=== PATIENT | female | born 1960 | race Hispanic/Latino ===

== ENCOUNTER 2017-06-20 19:06 | Inpatient (IN) | payer OTHER ==
[2017-06-20 19:19] VITALS: BMI 17.2
[2017-06-20] MEDS ORDERED: Heparin25000 units/250ml 1/2NS 25,000 UNITS/250 ML BAG IV ONE (19:38)
[2017-06-20] MEDS ORDERED: Midazolam 2 MG/2 ML VIAL ONE (19:53)
[2017-06-20] MEDS ORDERED: SODIUM CHLORIDE 0.9% IV ONE (20:00)
[2017-06-20] MEDS ORDERED: ALTEPLASE IV ONE (20:00)
[2017-06-20] MEDS ORDERED: Iodixanol 320 MG/ML 100 ML BOTTLE IV ONE (20:23)
[2017-06-20] MEDS ORDERED: Heparin25000 units/250ml 1/2NS 25,000 UNITS/250 ML BAG IV PRN (21:39)
--- NOTE | 2017-06-20 23:08 | CP.PCM.CON ---
History of Present Illness - History of Present Illness History of Present Illness: 57 y/o female with rheumatoid arthritis,bedbound,sacral decubitus admitted to [facility] with Pulmonary embolism .Patient with persistant hypoxia,tacycardia, hypotension,with Pulmary HTN and RV dilatation on ECHO ,transferred today to for thrombolysis.Patient feels better after procedure.Denies chest pain or difficulty breathing Review of Systems - Constitutional Constitutional: absent: Anorexia, Fever - EENT Eyes: Dry Eye. absent: Blurred Vision Ears: absent: Decreased Hearing, Ear Pain Nose/Mouth/Throat: absent: Nasal Congestion, Sore Throat, Neck Mass - Cardiovascular Cardiovascular: Pedal Edema. absent: Chest Pain, Rapid Heart Rate - Respiratory Respiratory: absent: Cough, Dyspnea - Gastrointestinal Gastrointestinal: absent: Abdominal Pain, Nausea, Vomiting - Genitourinary Genitourinary: absent: Dysuria, Urinary Frequency - Musculoskeletal Musculoskeletal: Deformity, Stiffness - Neurological Neurological: absent: Headaches, Vertigo - Hematologic/Lymphatic Hematologic: absent: Easy Bleeding, Easy Bruising Past Patient History - Past Medical History & Family History Past Medical History?: Yes - Past Social History Smoking Status: Never Smoked - CARDIAC Hx Cardiac Disorders: Yes Hx Congestive Heart Failure: No Hx Hypercholesterolemia: No Hx Hypertension: Yes Other/Comment: stents - PULMONARY Hx Respiratory Disorders: Yes Hx Chronic Obstructive Pulmonary Disease (COPD): No - NEUROLOGICAL Hx Neurological Disorder: No HX Cerebrovascular Accident: No - HEENT Hx HEENT Problems: No - RENAL Hx Chronic Kidney Disease: No - ENDOCRINE/METABOLIC Hx Endocrine Disorders: No Hx Diabetes Mellitus Type 1: No Hx Diabetes Mellitus Type 2: No Hx Hypothyroidism: No - HEMATOLOGICAL/ONCOLOGICAL Hx Human Immunodeficiency Virus (HIV): No - INTEGUMENTARY Hx Dermatological Problems: No - MUSCULOSKELETAL/RHEUMATOLOGICAL Hx Musculoskeletal Disorders: Yes Hx Arthritis: Yes Hx Falls: No Hx Rheumatoid Arthritis: Yes - GASTROINTESTINAL Hx Gastrointestinal Disorders: No Hx Constipation: Yes - GENITOURINARY/GYNECOLOGICAL Hx Genitourinary Disorders: No - PSYCHIATRIC Hx Psychophysiologic Disorder: Yes Hx Anxiety: Yes Hx Depression: Yes Hx Physical Abuse: No Hx Substance Use: No - SURGICAL HISTORY Hx Surgeries: Yes Hx Joint Replacement: Yes (lenard hip/knee replacement) Other/Comment: B/l hand surgery - ANESTHESIA Hx Anesthesia: Yes Hx Anesthesia Reactions: No Meds Allergies/Adverse Reactions: Allergies Allergy/AdvReac Type Severity Reaction Status Date / Time asparagus Allergy RASH Verified 06/18/17 19:34 - Medications Medications: Current Medications Aspirin (Aspirin) 325 mg PO DAILY [facility] Alteplase, Recombinant 8 mg/ (Sodium Chloride) 500 mls @ 31.25 mls/hr IV ONCE ONE Stop: 06/21/17 11:59 Sodium Chloride (Sodium Chloride 0.9%) 1,000 mls @ 100 mls/hr IV .Q10H [facility] Heparin Sodium/Sodium Chloride (Heparin 94979 Units/250ml 1/2 Normal Saline) 25 ,000 units in 250 mls @ 6.169 mls/hr IV .Q24H PRN; Protocol; 16 UNITS/KG/HR PRN Reason: PROTOCOL Physical Exam - Constitutional Appears: Non-toxic, No Acute Distress - Head Exam Head Exam: ATRAUMATIC, NORMAL INSPECTION, NORMOCEPHALIC - Eye Exam Eye Exam: EOMI, Normal appearance, PERRL - ENT Exam ENT Exam: Mucous Membranes Moist - Neck Exam Neck exam: Positive for: Normal Inspection - Respiratory Exam Respiratory Exam: NORMAL BREATHING PATTERN Additional comments: scattered rales in both bases - Cardiovascular Exam Cardiovascular Exam: REGULAR RHYTHM. absent: JVD - GI/Abdominal Exam GI & Abdominal Exam: Normal Bowel Sounds, Soft. absent: Tenderness - Extremities Exam Extremities exam: Positive for: joint swelling. Negative for: tenderness Additional comments: 1+ edema bilateral legs bilateral hands with deformed fingers - Neurological Exam Neurological exam: Alert, Oriented x3 - Skin Skin Exam: Normal Color, Warm Assessment & Plan - Assessment and Plan (Free Text) Assessment: 1.Pulmonary Embolism s/p thrombolysis on IV heparin f/u labs 2.Severe rheumatoid arthritis analgesics pRN
[2017-06-21] MEDS: Sodium Chloride 0.9% 1,000 ML IV SCH ×4 (00:25→20:35)
[2017-06-21 00:29] LABS: BASO % 0.1 % (0.0-2.0); EOS % 0.2 % (0.0-4.0); HEMOGLOBIN 13.2 g/dL (11.0-16.0); LYMPH # 1.6 K/uL (1.0-4.3); LYMPH % 34.3 % (20.0-40.0); MEAN CELL VOLUME 91.2 fL (81.0-99.0); MEAN CORPUSCULAR HEMOGLOBIN 30.7 pg (27.0-31.0); MEAN CORPUSCULAR HGB CONC 33.7 g/dL (33.0-37.0); MEAN PLATELET VOLUME 9.2 fL (7.2-11.7); MONO # 0.4 K/uL (0.0-0.8); NEUT # 2.7 K/uL (1.8-7.0); NEUT % 56.4 % (50.0-75.0); NRBC % 0.1 % (0.0-2.0); RBC 4.3 Mil/uL (3.80-5.20); RED CELL DISTRIBUTION WIDTH 15.1 % (11.5-14.5); WHITE BLOOD COUNT 4.7 K/uL (4.8-10.8)
[2017-06-21 00:35] LABS: INR 1.1; PROTHROMBIN TIME 12.1 SECONDS (9.7-12.2)
[2017-06-21 01:06] LABS: CK-MB 2.43 ng/mL (0.0-3.38)
[2017-06-21 01:07] LABS: TROPONIN I 0.38 ng/mL (0.00-0.120)
[2017-06-21] MEDS ORDERED: Pneumococcal 23-Valent Vaccine IM ONE (04:36)
[2017-06-21 06:35] LABS: BASO % 0.2 % (0.0-2.0); EOS % 0.5 % (0.0-4.0); HEMOGLOBIN 12.1 g/dL (11.0-16.0); LYMPH # 1.8 K/uL (1.0-4.3); LYMPH % 29.1 % (20.0-40.0); MEAN CELL VOLUME 90.5 fL (81.0-99.0); MEAN CORPUSCULAR HEMOGLOBIN 30.7 pg (27.0-31.0); MEAN CORPUSCULAR HGB CONC 33.9 g/dL (33.0-37.0); MEAN PLATELET VOLUME 9.2 fL (7.2-11.7); MONO # 0.6 K/uL (0.0-0.8); MONO % 9.9 % (0.0-10.0); NEUT # 3.7 K/uL (1.8-7.0); NEUT % 60.3 % (50.0-75.0); NRBC % 0.1 % (0.0-2.0); RBC 3.93 Mil/uL (3.80-5.20); RED CELL DISTRIBUTION WIDTH 15.1 % (11.5-14.5); WHITE BLOOD COUNT 6.1 K/uL (4.8-10.8)
[2017-06-21 06:45] LABS: ALB/GLOB RATIO 0.7 (1.0-2.1); ALBUMIN 2.5 g/dL (3.5-5.0); ALT/SGPT 21 U/L (9-52); AST/SGOT 23 U/L (14-36); BLOOD UREA NITROGEN 6 mg/dL (7-17); CALCIUM 7.8 mg/dl (8.6-10.4); GFR AFRICAN-AMERICAN > 60; GFR NON-AFRICAN AMERICAN > 60; HDL CHOLESTEROL 29 mg/dL (30-70); MAGNESIUM 1.6 mg/dL (1.6-2.3)
[2017-06-21 06:55] LABS: LDL CHOLESTEROL 103 mg/dL (0-129)
[2017-06-21 07:06] LABS: CK-MB 2.93 ng/mL (0.0-3.38)
[2017-06-21] MEDS ORDERED: Potassium Chloride 20 mEq ER Tab PO ONE ×3 (09:30→14:00)
--- NOTE | 2017-06-21 11:12 | VAS ---
DATE: 06/20/2017 INDICATIONS: Elena Purdy is a 57-year-old female who presented to [facility] with acute onset of shortness of breath and was noted to have mild PE with RV strain. Echocardiogram showed dilated RV and RA. 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 PROCEDURE PERFORMED: Right heart catheterization with hemodynamic, PE selective bilateral pulmonary artery angiograms, injection of local tPA, 3 mg of TPN in 200 mL of normal saline locally into the right pulmonary artery. PROCEDURE TECHNIQUE: After obtaining informed consent, the patient was brought to the cardiac cath suite in post-absorptive and non-sedated state. The patient was prepped and draped in the usual sterile fashion and 2% lidocaine was used for infiltration of anesthesia. Using modified Seldinger technique, a 7-Montserratian sheath was introduced into the right femoral vein. Subsequently under fluoroscopic guidance with the balloon inflated, the PAWP catheter was serially advanced through RA and RV. Hemodynamics were obtained. Subsequently over a J-wire, a pigtail catheter was advanced into the left pulmonary artery. A selective left pulmonary angiogram using hand injection. Subsequently, the PA catheter was exchanged with the pigtail and then it was exchanged to the Kyle catheter in the right pulmonary artery and hand angiograms were obtained. Subsequently, the Kyle was exchanged over a Glidewire to a pigtail catheter. Selective right pulmonary angiograms with 20 mL of dye with 200 PSI was performed. Subsequently, mild right pulmonary embolus was noted, for which local tPA were injected with 3 mg of TPN and 300 mL of saline. Subsequent angiograms then showed resolution of clot with improvement in her blood pressure. IMPRESSION: Successful thrombolysis of the right pulmonary embolism with local tPA injection, selective bilateral pulmonary angiograms. RECOMMENDATIONS: The patient is to be transferred to ICU, to be kept on IV heparin drip overnight, and transferred to [facility] in the a.m. HEMODYNAMICS: RA 17/18/10, RV 76/02/23, PA 68/41/mean of 52. Steven Logan MD cc:
--- NOTE | 2017-06-21 11:12 | CP.PCM.CON ---
<Nereida Coughlin - Last Filed: 06/21/17 12:55> History of Present Illness - History of Present Illness History of Present Illness: 57 year old female with a past medical history significant for Rheumatoid Arthritis, 1 year of immobility secondary to a hip fracture, affective disorder (unspecified) and prior history of PE who presented to [facility] for EKOS thrombolysis of a PE causing right ventricular heart strain and persistent hypoxemia and hypotension. The patient reports having 6 months of dyspnea on exertion, but states that in the past few weeks the dyspnea worsened and she also developed new-onset lower extremity edema. ROS is limited secondary to the patient being unstable and short of breath. 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 Review of Systems - Review of Systems All systems: reviewed and no additional remarkable complaints except Review of Systems: as per HPI Past Patient History - Past Medical History & Family History Past Medical History?: Yes - Past Social History Smoking Status: Never Smoked - CARDIAC Hx Cardiac Disorders: Yes Hx Congestive Heart Failure: No Hx Hypercholesterolemia: No Hx Hypertension: Yes Other/Comment: stents - PULMONARY Hx Respiratory Disorders: Yes Hx Chronic Obstructive Pulmonary Disease (COPD): No - NEUROLOGICAL Hx Neurological Disorder: No HX Cerebrovascular Accident: No - HEENT Hx HEENT Problems: No - RENAL Hx Chronic Kidney Disease: No - ENDOCRINE/METABOLIC Hx Endocrine Disorders: No Hx Diabetes Mellitus Type 1: No Hx Diabetes Mellitus Type 2: No Hx Hypothyroidism: No - HEMATOLOGICAL/ONCOLOGICAL Hx Human Immunodeficiency Virus (HIV): No - INTEGUMENTARY Hx Dermatological Problems: No - MUSCULOSKELETAL/RHEUMATOLOGICAL Hx Musculoskeletal Disorders: Yes Hx Arthritis: Yes Hx Falls: No Hx Rheumatoid Arthritis: Yes - GASTROINTESTINAL Hx Gastrointestinal Disorders: No Hx Constipation: Yes - GENITOURINARY/GYNECOLOGICAL Hx Genitourinary Disorders: No - PSYCHIATRIC Hx Psychophysiologic Disorder: Yes Hx Anxiety: Yes Hx Depression: Yes Hx Physical Abuse: No Hx Substance Use: No - SURGICAL HISTORY Hx Surgeries: Yes Hx Joint Replacement: Yes (lenard hip/knee replacement) Other/Comment: B/l hand surgery - ANESTHESIA Hx Anesthesia: Yes Hx Anesthesia Reactions: No Meds Allergies/Adverse Reactions: Allergies Allergy/AdvReac Type Severity Reaction Status Date / Time asparagus Allergy RASH Verified 06/18/17 19:34 - Medications Medications: Current Medications Apixaban (Eliquis) 5 mg PO BID [facility] Aspirin (Aspirin) 325 mg PO DAILY [facility] Alteplase, Recombinant 8 mg/ (Sodium Chloride) 500 mls @ 31.25 mls/hr IV ONCE ONE Stop: 06/21/17 11:59 Last Admin: 06/21/17 00:53 Dose: Not Given Sodium Chloride (Sodium Chloride 0.9%) 1,000 mls @ 100 mls/hr IV .Q10H [facility] Last Admin: 06/21/17 00:25 Dose: 100 mls/hr Heparin Sodium/Sodium Chloride (Heparin 83005 Units/250ml 1/2 Normal Saline) 25 ,000 units in 250 mls @ 6.169 mls/hr IV .Q24H PRN; Protocol; 16 UNITS/KG/HR PRN Reason: PROTOCOL Last Titration: 06/21/17 08:18 Dose: 13 units/kg/hr, 5.012 mls/hr Pantoprazole Sodium (Protonix Ec Tab) 40 mg PO DAILY [facility] Pneumococcal Polyvalent Vaccine (Pneumovax 23 Vaccine) 0.5 ml IM .ONCE ONE Stop: 06/24/17 08:31 Potassium Chloride (K-Dur 20 Meq Er Tab) 40 meq PO ONCE ONE Stop: 06/21/17 14:01 Physical Exam - Constitutional Appears: Toxic, In Acute Distress - Head Exam Head Exam: ATRAUMATIC, NORMOCEPHALIC - Neck Exam Additional comments: JVD - Respiratory Exam Respiratory Exam: Accessory Muscle Use, Respiratory Distress - Cardiovascular Exam Cardiovascular Exam: Tachycardia - Extremities Exam Additional comments: lower extremity edema Results - Vital Signs Recent Vital Signs: Last Vital Signs Temp 98 F 06/21/17 00:50 Pulse 96 H 06/21/17 10:30 Resp 21 06/21/17 10:30 BP 122/82 06/21/17 09:57 Pulse Ox 89 L 06/21/17 10:30 - Labs Result Diagrams: 06/21/17 06:24 06/21/17 06:23 Labs: Laboratory Results - last 24 hr 06/21/17 06/21/17 06/21/17 00:12 00:12 00:12 WBC 4.7 L RBC 4.30 Hgb 13.2 Hct 39.2 MCV 91.2 MCH 30.7 MCHC 33.7 RDW 15.1 H Plt Count 282 MPV 9.2 Neut % (Auto) 56.4 Lymph % (Auto) 34.3 Delta % (Auto) 9.0 Eos % (Auto) 0.2 Baso % (Auto) 0.1 Neut # (Auto) 2.7 Lymph # (Auto) 1.6 Delta # (Auto) 0.4 Eos # (Auto) 0.0 Baso # (Auto) 0.0 PT 12.1 INR 1.1 APTT 31 Sodium Potassium Chloride Carbon Dioxide Anion Gap BUN Creatinine Est GFR ( Amer) Est GFR (Non-Af Amer) Random Glucose Calcium Phosphorus Magnesium Total Bilirubin AST ALT Alkaline Phosphatase Total Creatine Kinase 31 CK-MB (Mass) 2.43 Troponin I 0.3800 H* Total Protein Albumin Globulin Albumin/Globulin Ratio Triglycerides Cholesterol LDL Cholesterol Direct HDL Cholesterol 06/21/17 06/21/17 06/21/17 06:23 06:24 06:24 WBC 6.1 RBC 3.93 Hgb 12.1 Hct 35.5 MCV 90.5 MCH 30.7 MCHC 33.9 RDW 15.1 H Plt Count 272 MPV 9.2 Neut % (Auto) 60.3 Lymph % (Auto) 29.1 Delta % (Auto) 9.9 Eos % (Auto) 0.5 Baso % (Auto) 0.2 Neut # (Auto) 3.7 Lymph # (Auto) 1.8 Delta # (Auto) 0.6 Eos # (Auto) 0.0 Baso # (Auto) 0.0 PT INR APTT 105 H* D Sodium 138 Potassium 2.7 L Chloride 104 Carbon Dioxide 27 Anion Gap 10 BUN 6 L Creatinine 0.3 L Est GFR ( Amer) > 60 Est GFR (Non-Af Amer) > 60 Random Glucose 79 Calcium 7.8 L Phosphorus 3.5 Magnesium 1.6 Total Bilirubin 0.5 AST 23 ALT 21 Alkaline Phosphatase 87 Total Creatine Kinase 30 CK-MB (Mass) 2.93 Troponin I 0.5630 H* Total Protein 6.0 L Albumin 2.5 L Globulin 3.4 Albumin/Globulin Ratio 0.7 L Triglycerides 101 Cholesterol 153 LDL Cholesterol Direct 103 HDL Cholesterol 29 L Assessment & Plan - Assessment and Plan (Free Text) Assessment: 57 year old female with a past medical history of Rhematoid Arthritis, 1 year of immobility/bed bound, and previous pulmonary embolism who presented from [facility] to for EKOS thrombolysis of a pulmonary embolism causing right heart strain. Plan: 1) Systemic heparin with target PTT of 80 and localized rtPA to right pulmonary embolus. Patient to be monitored in the ICU. - Date & Time Date: 06/20/17 Time: 18:35 <Steven Logan - Last Filed: 06/21/17 17:06> Meds - Medications Medications: Current Medications Apixaban (Eliquis) 5 mg PO BID [facility] Last Admin: 06/21/17 12:30 Dose: 5 mg Aspirin (Aspirin) 325 mg PO DAILY [facility] Last Admin: 06/21/17 11:42 Dose: 325 mg Sodium Chloride (Sodium Chloride 0.9%) 1,000 mls @ 100 mls/hr IV .Q10H [facility] Last Admin: 06/21/17 11:47 Dose: 100 mls/hr Potassium Chloride (Potassium Chloride 20 Meq/100 Ml) 20 meq in 100 mls @ 50 mls/hr IVPB ONCE ONE Stop: 06/21/17 17:36 Last Admin: 06/21/17 16:19 Dose: 50 mls/hr Pantoprazole Sodium (Protonix Ec Tab) 40 mg PO DAILY [facility] Last Admin: 06/21/17 11:42 Dose: 40 mg Pneumococcal Polyvalent Vaccine (Pneumovax 23 Vaccine) 0.5 ml IM .ONCE ONE Stop: 06/24/17 08:31 Results - Vital Signs Recent Vital Signs: Last Vital Signs Temp 98.5 F 06/21/17 16:05 Pulse 109 H 06/21/17 16:00 Resp 29 H 06/21/17 16:00 BP 94/65 L 06/21/17 15:57 Pulse Ox 68 L 06/21/17 16:00 - Labs Result Diagrams: 06/21/17 06:24 06/21/17 06:23 Labs: Laboratory Results - last 24 hr 06/21/17 06/21/17 06/21/17 00:12 00:12 00:12 WBC 4.7 L RBC 4.30 Hgb 13.2 Hct 39.2 MCV 91.2 MCH 30.7 MCHC 33.7 RDW 15.1 H Plt Count 282 MPV 9.2 Neut % (Auto) 56.4 Lymph % (Auto) 34.3 Delta % (Auto) 9.0 Eos % (Auto) 0.2 Baso % (Auto) 0.1 Neut # (Auto) 2.7 Lymph # (Auto) 1.6 Delta # (Auto) 0.4 Eos # (Auto) 0.0 Baso # (Auto) 0.0 PT 12.1 INR 1.1 APTT 31 Sodium Potassium Chloride Carbon Dioxide Anion Gap BUN Creatinine Est GFR ( Amer) Est GFR (Non-Af Amer) Random Glucose Calcium Phosphorus Magnesium Total Bilirubin AST ALT Alkaline Phosphatase Total Creatine Kinase 31 CK-MB (Mass) 2.43 Troponin I 0.3800 H* Total Protein Albumin Globulin Albumin/Globulin Ratio Triglycerides Cholesterol LDL Cholesterol Direct HDL Cholesterol 06/21/17 06/21/17 06/21/17 06:23 06:24 06:24 WBC 6.1 RBC 3.93 Hgb 12.1 Hct 35.5 MCV 90.5 MCH 30.7 MCHC 33.9 RDW 15.1 H Plt Count 272 MPV 9.2 Neut % (Auto) 60.3 Lymph % (Auto) 29.1 Delta % (Auto) 9.9 Eos % (Auto) 0.5 Baso % (Auto) 0.2 Neut # (Auto) 3.7 Lymph # (Auto) 1.8 Delta # (Auto) 0.6 Eos # (Auto) 0.0 Baso # (Auto) 0.0 PT INR APTT 105 H* D Sodium 138 Potassium 2.7 L Chloride 104 Carbon Dioxide 27 Anion Gap 10 BUN 6 L Creatinine 0.3 L Est GFR ( Amer) > 60 Est GFR (Non-Af Amer) > 60 Random Glucose 79 Calcium 7.8 L Phosphorus 3.5 Magnesium 1.6 Total Bilirubin 0.5 AST 23 ALT 21 Alkaline Phosphatase 87 Total Creatine Kinase 30 CK-MB (Mass) 2.93 Troponin I 0.5630 H* Total Protein 6.0 L Albumin 2.5 L Globulin 3.4 Albumin/Globulin Ratio 0.7 L Triglycerides 101 Cholesterol 153 LDL Cholesterol Direct 103 HDL Cholesterol 29 L Attending/Attestation - Attestation I have personally seen and examined this patient.: Yes I have fully participated in the care of the patient.: Yes I have reviewed all pertinent clinical information: Yes Notes (Text): 06/21/17 17:05 s/p right PA tpa 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
[2017-06-21] MEDS: Pantoprazole 40 mg EC Tab PO SCH (11:42)
[2017-06-21] MEDS ORDERED: Potassium Chloride 20 mEq/15 ml LIQ UD PO ONE ×2 (12:01→14:00)
--- NOTE | 2017-06-21 13:00 | CP.PCM.PN ---
<Nereida Coughlin - Last Filed: 06/21/17 12:58> Subjective - Date & Time of Evaluation Date of Evaluation: 06/21/17 Time of Evaluation: 10:00 - Subjective Subjective: Cardiology Progress Note for Dr. Logan Patient seen and examined at bedside. Patient reports improvement in dyspnea and lower extremity edema. Patient denies chest pain, palpitations, nausea, or vomiting. Nurse reports no events overnight. Objective - Vital Signs/Intake and Output Vital Signs (last 24 hours): Temp Pulse Resp BP Pulse Ox 98.0 F 73 18 132/88 92 L 06/21/17 12:05 06/21/17 12:00 06/21/17 12:00 06/21/17 11:57 06/21/17 12:00 Intake and Output: 06/21/17 06/21/17 06:59 18:59 Intake Total 742.7 905 Output Total 250 250 Balance 492.7 655 - Medications Medications: Current Medications Apixaban (Eliquis) 5 mg PO BID [facility] Last Admin: 06/21/17 12:30 Dose: 5 mg Aspirin (Aspirin) 325 mg PO DAILY [facility] Last Admin: 06/21/17 11:42 Dose: 325 mg Sodium Chloride (Sodium Chloride 0.9%) 1,000 mls @ 100 mls/hr IV .Q10H [facility] Last Admin: 06/21/17 11:47 Dose: 100 mls/hr Heparin Sodium/Sodium Chloride (Heparin 09425 Units/250ml 1/2 Normal Saline) 25 ,000 units in 250 mls @ 6.169 mls/hr IV .Q24H PRN; Protocol; 16 UNITS/KG/HR PRN Reason: PROTOCOL Last Titration: 06/21/17 08:18 Dose: 13 units/kg/hr, 5.012 mls/hr Pantoprazole Sodium (Protonix Ec Tab) 40 mg PO DAILY [facility] Last Admin: 06/21/17 11:42 Dose: 40 mg Pneumococcal Polyvalent Vaccine (Pneumovax 23 Vaccine) 0.5 ml IM .ONCE ONE Stop: 06/24/17 08:31 Potassium Chloride (Potassium Chloride Oral Soln) 20 meq PO ONCE ONE Stop: 06/21/17 14:01 - Labs Labs: 06/21/17 06:24 06/21/17 06:23 PT 12.1 SECONDS (9.7-12.2) 06/21/17 00:12 INR 1.1 06/21/17 00:12 APTT 105 SECONDS (21-34) H* D 06/21/17 06:24 - Constitutional Appears: Non-toxic, No Acute Distress - Head Exam Head Exam: ATRAUMATIC, NORMOCEPHALIC - Eye Exam Eye Exam: EOMI, Normal appearance - ENT Exam ENT Exam: Mucous Membranes Moist, Normal Exam - Neck Exam Additional comments: no JVD noted - Respiratory Exam Respiratory Exam: absent: Accessory Muscle Use - Cardiovascular Exam Cardiovascular Exam: RRR, +S1, +S2 - GI/Abdominal Exam GI & Abdominal Exam: Soft. absent: Distended - Extremities Exam Extremities Exam: absent: Calf Tenderness, Pedal Edema Additional comments: hands and feet are deformed from rheumatoid disease. - Back Exam Back Exam: absent: CVA tenderness (L), CVA tenderness (R) - Neurological Exam Neurological Exam: Alert, Awake, Oriented x3 - Psychiatric Exam Psychiatric exam: Normal Affect, Normal Mood - Skin Skin Exam: Intact, Normal Color, Warm Assessment and Plan - Assessment and Plan (Free Text) Assessment: 57 year old female with a past medical history of rheumatoid arthritis, immobility for one year, and a previous PE who is day one s/p EKOS thrombolysis for right PE with systemic heparin and localized tPA. Plan: -Eliquis 5 mg BID, first dose given at noon - Heparin drip to be discontinued at 16:00;l continue with reflexive PT and PTT to be dosed per protocol - HHD ordered for lunch <Steven Logan - Last Filed: 06/21/17 17:07> Objective - Vital Signs/Intake and Output Vital Signs (last 24 hours): Temp Pulse Resp BP Pulse Ox 98.5 F 109 H 29 H 94/65 L 68 L 06/21/17 16:05 06/21/17 16:00 06/21/17 16:00 06/21/17 15:57 06/21/17 16:00 Intake and Output: 06/21/17 06/21/17 06:59 18:59 Intake Total 742.7 1822 Output Total 250 500 Balance 492.7 1322 - Medications Medications: Current Medications Apixaban (Eliquis) 5 mg PO BID [facility] Last Admin: 06/21/17 12:30 Dose: 5 mg Aspirin (Aspirin) 325 mg PO DAILY [facility] Last Admin: 06/21/17 11:42 Dose: 325 mg Sodium Chloride (Sodium Chloride 0.9%) 1,000 mls @ 100 mls/hr IV .Q10H [facility] Last Admin: 06/21/17 11:47 Dose: 100 mls/hr Potassium Chloride (Potassium Chloride 20 Meq/100 Ml) 20 meq in 100 mls @ 50 mls/hr IVPB ONCE ONE Stop: 06/21/17 17:36 Last Admin: 06/21/17 16:19 Dose: 50 mls/hr Pantoprazole Sodium (Protonix Ec Tab) 40 mg PO DAILY [facility] Last Admin: 06/21/17 11:42 Dose: 40 mg Pneumococcal Polyvalent Vaccine (Pneumovax 23 Vaccine) 0.5 ml IM .ONCE ONE Stop: 06/24/17 08:31 - Labs Labs: 06/21/17 06:24 06/21/17 06:23 PT 12.1 SECONDS (9.7-12.2) 06/21/17 00:12 INR 1.1 06/21/17 00:12 APTT 105 SECONDS (21-34) H* D 06/21/17 06:24 Attending/Attestation - Attestation I have personally seen and examined this patient.: Yes I have fully participated in the care of the patient.: Yes I have reviewed all pertinent clinical information, including history, physical exam and plan: Yes Notes (Text): 06/21/17 17:07 Acute PE s/p local tPA given Transition IV heparin to PO eliquis repeat echo to assess RV fx
--- NOTE | 2017-06-21 13:08 | CP.CCUPN ---
<Leo Carrasco - Last Filed: 06/21/17 18:03> CCU Subjective - Physician Review Events Since Last Encounter (Free Text): 06/21/17 13:12 Patient seen and examined at bedside. Per nursing no acute events occurred overnight. Critical Care Time Spent (in minutes): 45 CCU Objective - Vital Signs / Intake & Output Vital Signs (Last 4 hours): Vital Signs Temp Pulse Resp BP Pulse Ox 06/21/17 13:00 98 H 19 91 L 06/21/17 12:57 91 H 24 111/70 90 L 06/21/17 12:50 77 33 H 91 L 06/21/17 12:40 90 32 H 89 L 06/21/17 12:30 94 H 23 89 L 06/21/17 12:20 88 31 H 88 L 06/21/17 12:10 96 H 26 H 87 L 06/21/17 12:05 98.0 F 06/21/17 12:00 73 18 92 L 06/21/17 11:57 98 H 31 H 132/88 86 L 06/21/17 11:50 98 H 18 91 L 06/21/17 11:40 97 H 20 88 L 06/21/17 11:30 94 H 28 H 93 L 06/21/17 11:20 95 H 15 91 L 06/21/17 11:10 97 H 20 90 L 06/21/17 11:00 92 H 17 91 L 06/21/17 10:58 96 H 22 130/90 92 L 06/21/17 10:40 80 18 89 L 06/21/17 10:30 96 H 21 89 L 06/21/17 10:20 95 H 24 88 L 06/21/17 10:10 94 H 16 89 L 06/21/17 10:00 90 15 90 L 06/21/17 09:57 92 H 16 122/82 92 L 06/21/17 09:50 98 H 16 88 L 06/21/17 09:40 96 H 29 H 87 L 06/21/17 09:10 93 H 14 90 L Intake and Output (Last 8hrs): Intake & Output 06/20/17 06/21/17 06/21/17 22:59 06:59 14:59 Intake Total 742.7 1010 Output Total 250 250 Balance 492.7 760 Weight 85 lb 82 lb Intake: IV 0 Intake, IV Amount 742.7 830 Forearm 42.7 30 Right Forearm 700 800 Oral 0 180 Output: Urine 250 250 Urine, Voided 250 250 Other: Voiding Method Bedpan # Voids Urine, Voided 1 - Physical Exam Head: Positive for: Atraumatic, Normocephalic Pupils: Positive for: PERRL Extroacular Muscles: Positive for: EOMI Conjunctiva: Positive for: Normal Mouth: Positive for: Moist Mucous Membranes Respiratory/Chest: Positive for: Clear to Auscultation, Respiratory Distress Cardiovascular: Positive for: Regular Rate and Rhythm, Normal S1, S2 Abdomen: Positive for: Normal Bowel Sounds Upper Extremity: Positive for: Normal Inspection. Negative for: Edema Lower Extremity: Positive for: Normal Inspection Skin: Positive for: Warm, Dry, Normal Color Psychiatric: Positive for: Alert - Medications Active Medications: Active Medications Generic Name Dose Route Start Last Admin Trade Name Freq PRN Reason Stop Dose Admin Apixaban 5 mg 06/21/17 12:30 06/21/17 12:30 Eliquis PO 5 mg BID MEHRDAD Administration Aspirin 325 mg 06/21/17 10:00 06/21/17 11:42 Aspirin PO 325 mg DAILY MEHRDAD Administration Sodium Chloride 1,000 mls @ 100 mls/hr 06/20/17 21:45 06/21/17 11:47 Sodium Chloride 0.9% IV 100 mls/hr .Q10H MEHRDAD Administration Heparin Sodium/Sodium Chloride 25,000 units in 250 mls @ 6.169 mls/hr 21:39 06/21/17 08:18 Heparin 06629 Units/250ml 1/2 Normal Saline IV 13 units/kg/hr .Q24H PRN 5.012 mls/hr PROTOCOL Titration Protocol 16 UNITS/KG/HR Pantoprazole Sodium 40 mg 06/21/17 10:00 06/21/17 11:42 Protonix Ec Tab PO 40 mg DAILY MEHRDAD Administration Pneumococcal Polyvalent Vaccine 0.5 ml 06/24/17 08:30 Pneumovax 23 Vaccine IM 06/24/17 08:31 .ONCE ONE Potassium Chloride 20 meq 06/21/17 14:00 Potassium Chloride Oral Soln PO 06/21/17 14:01 ONCE ONE - Patient Studies Lab Studies: Lab Studies 06/21/17 06/21/17 06/21/17 Range/Units 06:24 06:24 06:23 WBC 6.1 (4.8-10.8) K/uL RBC 3.93 (3.80-5.20) Mil/uL Hgb 12.1 (11.0-16.0) g/dL Hct 35.5 (34.0-47.0) % MCV 90.5 (81.0-99.0) fL MCH 30.7 (27.0-31.0) pg MCHC 33.9 (33.0-37.0) g/dL RDW 15.1 H (11.5-14.5) % Plt Count 272 (130-400) K/uL MPV 9.2 (7.2-11.7) fL Neut % (Auto) 60.3 (50.0-75.0) % Lymph % (Auto) 29.1 (20.0-40.0) % [place] % (Auto) 9.9 (0.0-10.0) % Eos % (Auto) 0.5 (0.0-4.0) % Baso % (Auto) 0.2 (0.0-2.0) % Neut # (Auto) 3.7 (1.8-7.0) K/uL Lymph # (Auto) 1.8 (1.0-4.3) K/uL [place] # (Auto) 0.6 (0.0-0.8) K/uL Eos # (Auto) 0.0 (0.0-0.7) K/uL Baso # (Auto) 0.0 (0.0-0.2) K/uL PT (9.7-12.2) SECONDS INR APTT 105 H* D (21-34) SECONDS Sodium 138 (132-148) mmol/L Potassium 2.7 L (3.6-5.2) mmol/L Chloride 104 (98-107) mmol/L Carbon Dioxide 27 (22-30) mmol/L Anion Gap 10 (10-20) BUN 6 L (7-17) mg/dL Creatinine 0.3 L (0.7-1.2) mg/dL Est GFR ( Amer) > 60 Est GFR (Non-Af Amer) > 60 Random Glucose 79 (65-105) mg/dL Calcium 7.8 L (8.6-10.4) mg/dl Phosphorus 3.5 (2.5-4.5) mg/dL Magnesium 1.6 (1.6-2.3) mg/dL Total Bilirubin 0.5 (0.2-1.3) mg/dL AST 23 (14-36) U/L ALT 21 (9-52) U/L Alkaline Phosphatase 87 (38-126) U/L Total Creatine Kinase 30 (30-135) U/L CK-MB (Mass) 2.93 (0.0-3.38) ng/mL Troponin I 0.5630 H* (0.00-0.120) ng/mL Total Protein 6.0 L (6.3-8.3) g/dL Albumin 2.5 L (3.5-5.0) g/dL Globulin 3.4 (2.2-3.9) gm/dL Albumin/Globulin Ratio 0.7 L (1.0-2.1) Triglycerides 101 (0-149) mg/dL Cholesterol 153 (0-199) mg/dL LDL Cholesterol Direct 103 (0-129) mg/dL HDL Cholesterol 29 L (30-70) mg/dL 06/21/17 06/21/17 06/21/17 Range/Units 00:12 00:12 00:12 WBC 4.7 L (4.8-10.8) K/uL RBC 4.30 (3.80-5.20) Mil/uL Hgb 13.2 (11.0-16.0) g/dL Hct 39.2 (34.0-47.0) % MCV 91.2 (81.0-99.0) fL MCH 30.7 (27.0-31.0) pg MCHC 33.7 (33.0-37.0) g/dL RDW 15.1 H (11.5-14.5) % Plt Count 282 (130-400) K/uL MPV 9.2 (7.2-11.7) fL Neut % (Auto) 56.4 (50.0-75.0) % Lymph % (Auto) 34.3 (20.0-40.0) % [place] % (Auto) 9.0 (0.0-10.0) % Eos % (Auto) 0.2 (0.0-4.0) % Baso % (Auto) 0.1 (0.0-2.0) % Neut # (Auto) 2.7 (1.8-7.0) K/uL Lymph # (Auto) 1.6 (1.0-4.3) K/uL [place] # (Auto) 0.4 (0.0-0.8) K/uL Eos # (Auto) 0.0 (0.0-0.7) K/uL Baso # (Auto) 0.0 (0.0-0.2) K/uL PT 12.1 (9.7-12.2) SECONDS INR 1.1 APTT 31 (21-34) SECONDS Sodium (132-148) mmol/L Potassium (3.6-5.2) mmol/L Chloride (98-107) mmol/L Carbon Dioxide (22-30) mmol/L Anion Gap (10-20) BUN (7-17) mg/dL Creatinine (0.7-1.2) mg/dL Est GFR ( Amer) Est GFR (Non-Af Amer) Random Glucose (65-105) mg/dL Calcium (8.6-10.4) mg/dl Phosphorus (2.5-4.5) mg/dL Magnesium (1.6-2.3) mg/dL Total Bilirubin (0.2-1.3) mg/dL AST (14-36) U/L ALT (9-52) U/L Alkaline Phosphatase (38-126) U/L Total Creatine Kinase 31 (30-135) U/L CK-MB (Mass) 2.43 (0.0-3.38) ng/mL Troponin I 0.3800 H* (0.00-0.120) ng/mL Total Protein (6.3-8.3) g/dL Albumin (3.5-5.0) g/dL Globulin (2.2-3.9) gm/dL Albumin/Globulin Ratio (1.0-2.1) Triglycerides (0-149) mg/dL Cholesterol (0-199) mg/dL LDL Cholesterol Direct (0-129) mg/dL HDL Cholesterol (30-70) mg/dL Laboratory Results - last 24 hr 06/21/17 06/21/17 06/21/17 00:12 00:12 00:12 WBC 4.7 L RBC 4.30 Hgb 13.2 Hct 39.2 MCV 91.2 MCH 30.7 MCHC 33.7 RDW 15.1 H Plt Count 282 MPV 9.2 Neut % (Auto) 56.4 Lymph % (Auto) 34.3 [place] % (Auto) 9.0 Eos % (Auto) 0.2 Baso % (Auto) 0.1 Neut # (Auto) 2.7 Lymph # (Auto) 1.6 [place] # (Auto) 0.4 Eos # (Auto) 0.0 Baso # (Auto) 0.0 PT 12.1 INR 1.1 APTT 31 Sodium Potassium Chloride Carbon Dioxide Anion Gap BUN Creatinine Est GFR ( Amer) Est GFR (Non-Af Amer) Random Glucose Calcium Phosphorus Magnesium Total Bilirubin AST ALT Alkaline Phosphatase Total Creatine Kinase 31 CK-MB (Mass) 2.43 Troponin I 0.3800 H* Total Protein Albumin Globulin Albumin/Globulin Ratio Triglycerides Cholesterol LDL Cholesterol Direct HDL Cholesterol 06/21/17 06/21/17 06/21/17 06:23 06:24 06:24 WBC 6.1 RBC 3.93 Hgb 12.1 Hct 35.5 MCV 90.5 MCH 30.7 MCHC 33.9 RDW 15.1 H Plt Count 272 MPV 9.2 Neut % (Auto) 60.3 Lymph % (Auto) 29.1 [place] % (Auto) 9.9 Eos % (Auto) 0.5 Baso % (Auto) 0.2 Neut # (Auto) 3.7 Lymph # (Auto) 1.8 [place] # (Auto) 0.6 Eos # (Auto) 0.0 Baso # (Auto) 0.0 PT INR APTT 105 H* D Sodium 138 Potassium 2.7 L Chloride 104 Carbon Dioxide 27 Anion Gap 10 BUN 6 L Creatinine 0.3 L Est GFR ( Amer) > 60 Est GFR (Non-Af Amer) > 60 Random Glucose 79 Calcium 7.8 L Phosphorus 3.5 Magnesium 1.6 Total Bilirubin 0.5 AST 23 ALT 21 Alkaline Phosphatase 87 Total Creatine Kinase 30 CK-MB (Mass) 2.93 Troponin I 0.5630 H* Total Protein 6.0 L Albumin 2.5 L Globulin 3.4 Albumin/Globulin Ratio 0.7 L Triglycerides 101 Cholesterol 153 LDL Cholesterol Direct 103 HDL Cholesterol 29 L EKG/Cardiology Studies: Cardiology / EKG Studies 06/20/17 21:37 ELECTROCARDIOGRAM Stat Comment: Mode Of Transportation: PORTABLE Reason For Exam: s/p pulmonary angiogram Review of Systems - EENT Eyes: absent: Blurred Vision, Sees Flashes Ears: absent: Ear Discharge, Dizziness Nose/Mouth/Throat: absent: Nasal Congestion, Bleeding Gums, Neck Pain - Cardiovascular Cardiovascular: absent: Chest Pain, Claudication, Irregular Heart Rhythm, Palpitations, Pedal Edema, Syncope - Respiratory Respiratory: absent: Dyspnea, Hemoptysis, Change in Mucous Color - Gastrointestinal Gastrointestinal: absent: Belching, Change in Stool Character, Fecal Incontinence, Loose Stools, Other - Integumentary Integumentary: absent: Alopecia, Bleeding Lesions - Neurological Neurological: absent: Abnormal Hearing, Dizziness, Lack of Coordination - Endocrine Endocrine: absent: Change in Libido, Polydipsia, Polyphagia, Polyuria Critical Care Progress Note - Nutrition Nutrition: Nutrition Category Date Time Status Heart Healthy Diet [DIET] Diets 06/21/17 Lunch Active Assessment/Plan - Assessment and Plan (Free Text) Assessment: 57 year old female with a past medical history of rheumatoid arthritis, immobility for one year, and a previous PE who is day one s/p EKOS thrombolysis for right PE with systemic heparin and localized tPA. Plan: Continue Heparin Drip Repeat ECho in a couple of days. Electrolye replacement a needed. Aspirin Eliquis <Maximilian Brar S - Last Filed: 06/21/17 18:10> CCU Objective - Vital Signs / Intake & Output Vital Signs (Last 4 hours): Vital Signs Temp Pulse Resp BP Pulse Ox 06/21/17 17:20 112 H 15 91 L 06/21/17 17:10 110 H 13 78 L 06/21/17 17:00 108 H 14 80 L 06/21/17 16:57 111 H 24 103/67 75 L 06/21/17 16:45 14 06/21/17 16:30 105 H 29 H 76 L 06/21/17 16:05 98.5 F 06/21/17 16:00 109 H 29 H 68 L 06/21/17 15:57 94/65 L 06/21/17 15:10 133 H 17 87 L 06/21/17 15:00 108 H 27 H 82 L 06/21/17 14:57 113 H 37 H 99/66 L 95 06/21/17 14:50 97 H 21 86 L 06/21/17 14:40 99 H 16 92 L 06/21/17 14:30 103 H 12 87 L 06/21/17 14:20 111 H 21 83 L 06/21/17 14:10 109 H 21 82 L Intake and Output (Last 8hrs): Intake & Output 06/21/17 06/21/17 06/21/17 06:59 14:59 22:59 Intake Total 742.7 1115 807 Output Total 250 500 0 Balance 492.7 615 807 Weight 82 lb Intake: IV 0 162 Intake, IV Amount 742.7 935 405 Forearm 42.7 35 105 Right Forearm 700 900 300 Oral 0 180 240 Output: Urine 250 500 0 Urine, Voided 250 500 0 Other: # Voids Urine, Voided 1 - Medications Active Medications: Active Medications Generic Name Dose Route Start Last Admin Trade Name Freq PRN Reason Stop Dose Admin Apixaban 5 mg 06/21/17 12:30 06/21/17 17:47 Eliquis PO 5 mg BID MEHRDAD Administration Aspirin 325 mg 06/21/17 10:00 06/21/17 11:42 Aspirin PO 325 mg DAILY MEHRDAD Administration Sodium Chloride 1,000 mls @ 100 mls/hr 06/20/17 21:45 06/21/17 17:47 Sodium Chloride 0.9% IV 100 mls/hr .Q10H MEHRDAD Administration Pantoprazole Sodium 40 mg 06/21/17 10:00 06/21/17 11:42 Protonix Ec Tab PO 40 mg DAILY MEHRDAD Administration Pneumococcal Polyvalent Vaccine 0.5 ml 06/24/17 08:30 Pneumovax 23 Vaccine IM 06/24/17 08:31 .ONCE ONE - Patient Studies Lab Studies: Lab Studies 06/21/17 06/21/17 06/21/17 Range/Units 06:24 06:24 06:23 WBC 6.1 (4.8-10.8) K/uL RBC 3.93 (3.80-5.20) Mil/uL Hgb 12.1 (11.0-16.0) g/dL Hct 35.5 (34.0-47.0) % MCV 90.5 (81.0-99.0) fL MCH 30.7 (27.0-31.0) pg MCHC 33.9 (33.0-37.0) g/dL RDW 15.1 H (11.5-14.5) % Plt Count 272 (130-400) K/uL MPV 9.2 (7.2-11.7) fL Neut % (Auto) 60.3 (50.0-75.0) % Lymph % (Auto) 29.1 (20.0-40.0) % [place] % (Auto) 9.9 (0.0-10.0) % Eos % (Auto) 0.5 (0.0-4.0) % Baso % (Auto) 0.2 (0.0-2.0) % Neut # (Auto) 3.7 (1.8-7.0) K/uL Lymph # (Auto) 1.8 (1.0-4.3) K/uL [place] # (Auto) 0.6 (0.0-0.8) K/uL Eos # (Auto) 0.0 (0.0-0.7) K/uL Baso # (Auto) 0.0 (0.0-0.2) K/uL PT (9.7-12.2) SECONDS INR APTT 105 H* D (21-34) SECONDS Sodium 138 (132-148) mmol/L Potassium 2.7 L (3.6-5.2) mmol/L Chloride 104 (98-107) mmol/L Carbon Dioxide 27 (22-30) mmol/L Anion Gap 10 (10-20) BUN 6 L (7-17) mg/dL Creatinine 0.3 L (0.7-1.2) mg/dL Est GFR ( Amer) > 60 Est GFR (Non-Af Amer) > 60 Random Glucose 79 (65-105) mg/dL Calcium 7.8 L (8.6-10.4) mg/dl Phosphorus 3.5 (2.5-4.5) mg/dL Magnesium 1.6 (1.6-2.3) mg/dL Total Bilirubin 0.5 (0.2-1.3) mg/dL AST 23 (14-36) U/L ALT 21 (9-52) U/L Alkaline Phosphatase 87 (38-126) U/L Total Creatine Kinase 30 (30-135) U/L CK-MB (Mass) 2.93 (0.0-3.38) ng/mL Troponin I 0.5630 H* (0.00-0.120) ng/mL Total Protein 6.0 L (6.3-8.3) g/dL Albumin 2.5 L (3.5-5.0) g/dL Globulin 3.4 (2.2-3.9) gm/dL Albumin/Globulin Ratio 0.7 L (1.0-2.1) Triglycerides 101 (0-149) mg/dL Cholesterol 153 (0-199) mg/dL LDL Cholesterol Direct 103 (0-129) mg/dL HDL Cholesterol 29 L (30-70) mg/dL 06/21/17 06/21/17 06/21/17 Range/Units 00:12 00:12 00:12 WBC 4.7 L (4.8-10.8) K/uL RBC 4.30 (3.80-5.20) Mil/uL Hgb 13.2 (11.0-16.0) g/dL Hct 39.2 (34.0-47.0) % MCV 91.2 (81.0-99.0) fL MCH 30.7 (27.0-31.0) pg MCHC 33.7 (33.0-37.0) g/dL RDW 15.1 H (11.5-14.5) % Plt Count 282 (130-400) K/uL MPV 9.2 (7.2-11.7) fL Neut % (Auto) 56.4 (50.0-75.0) % Lymph % (Auto) 34.3 (20.0-40.0) % [place] % (Auto) 9.0 (0.0-10.0) % Eos % (Auto) 0.2 (0.0-4.0) % Baso % (Auto) 0.1 (0.0-2.0) % Neut # (Auto) 2.7 (1.8-7.0) K/uL Lymph # (Auto) 1.6 (1.0-4.3) K/uL [place] # (Auto) 0.4 (0.0-0.8) K/uL Eos # (Auto) 0.0 (0.0-0.7) K/uL Baso # (Auto) 0.0 (0.0-0.2) K/uL PT 12.1 (9.7-12.2) SECONDS INR 1.1 APTT 31 (21-34) SECONDS Sodium (132-148) mmol/L Potassium (3.6-5.2) mmol/L Chloride (98-107) mmol/L Carbon Dioxide (22-30) mmol/L Anion Gap (10-20) BUN (7-17) mg/dL Creatinine (0.7-1.2) mg/dL Est GFR ( Amer) Est GFR (Non-Af Amer) Random Glucose (65-105) mg/dL Calcium (8.6-10.4) mg/dl Phosphorus (2.5-4.5) mg/dL Magnesium (1.6-2.3) mg/dL Total Bilirubin (0.2-1.3) mg/dL AST (14-36) U/L ALT (9-52) U/L Alkaline Phosphatase (38-126) U/L Total Creatine Kinase 31 (30-135) U/L CK-MB (Mass) 2.43 (0.0-3.38) ng/mL Troponin I 0.3800 H* (0.00-0.120) ng/mL Total Protein (6.3-8.3) g/dL Albumin (3.5-5.0) g/dL Globulin (2.2-3.9) gm/dL Albumin/Globulin Ratio (1.0-2.1) Triglycerides (0-149) mg/dL Cholesterol (0-199) mg/dL LDL Cholesterol Direct (0-129) mg/dL HDL Cholesterol (30-70) mg/dL Laboratory Results - last 24 hr 06/21/17 06/21/17 06/21/17 00:12 00:12 00:12 WBC 4.7 L RBC 4.30 Hgb 13.2 Hct 39.2 MCV 91.2 MCH 30.7 MCHC 33.7 RDW 15.1 H Plt Count 282 MPV 9.2 Neut % (Auto) 56.4 Lymph % (Auto) 34.3 [place] % (Auto) 9.0 Eos % (Auto) 0.2 Baso % (Auto) 0.1 Neut # (Auto) 2.7 Lymph # (Auto) 1.6 [place] # (Auto) 0.4 Eos # (Auto) 0.0 Baso # (Auto) 0.0 PT 12.1 INR 1.1 APTT 31 Sodium Potassium Chloride Carbon Dioxide Anion Gap BUN Creatinine Est GFR ( Amer) Est GFR (Non-Af Amer) Random Glucose Calcium Phosphorus Magnesium Total Bilirubin AST ALT Alkaline Phosphatase Total Creatine Kinase 31 CK-MB (Mass) 2.43 Troponin I 0.3800 H* Total Protein Albumin Globulin Albumin/Globulin Ratio Triglycerides Cholesterol LDL Cholesterol Direct HDL Cholesterol 06/21/17 06/21/17 06/21/17 06:23 06:24 06:24 WBC 6.1 RBC 3.93 Hgb 12.1 Hct 35.5 MCV 90.5 MCH 30.7 MCHC 33.9 RDW 15.1 H Plt Count 272 MPV 9.2 Neut % (Auto) 60.3 Lymph % (Auto) 29.1 [place] % (Auto) 9.9 Eos % (Auto) 0.5 Baso % (Auto) 0.2 Neut # (Auto) 3.7 Lymph # (Auto) 1.8 [place] # (Auto) 0.6 Eos # (Auto) 0.0 Baso # (Auto) 0.0 PT INR APTT 105 H* D Sodium 138 Potassium 2.7 L Chloride 104 Carbon Dioxide 27 Anion Gap 10 BUN 6 L Creatinine 0.3 L Est GFR ( Amer) > 60 Est GFR (Non-Af Amer) > 60 Random Glucose 79 Calcium 7.8 L Phosphorus 3.5 Magnesium 1.6 Total Bilirubin 0.5 AST 23 ALT 21 Alkaline Phosphatase 87 Total Creatine Kinase 30 CK-MB (Mass) 2.93 Troponin I 0.5630 H* Total Protein 6.0 L Albumin 2.5 L Globulin 3.4 Albumin/Globulin Ratio 0.7 L Triglycerides 101 Cholesterol 153 LDL Cholesterol Direct 103 HDL Cholesterol 29 L EKG/Cardiology Studies: Cardiology / EKG Studies 06/20/17 21:37 ELECTROCARDIOGRAM Stat Comment: Mode Of Transportation: PORTABLE Reason For Exam: s/p pulmonary angiogram Critical Care Progress Note - Nutrition Nutrition: Nutrition Category Date Time Status Heart Healthy Diet [DIET] Diets 06/21/17 Lunch Active Attending/Attestation - Attestation I have personally seen and examined this patient.: Yes I have fully participated in the care of the patient.: Yes I have reviewed all pertinent clinical information: Yes Notes (Text): 06/21/17 18:08 Patient seen and examined in the intensive care unit., Case discussed with house staff in the morning around. Status post catheter directed thrombolysis for pulmonary embolism Echocardiogram consistent with right-sided strain and dilatation On IV heparin Continue to monitor in ICU
--- NOTE | 2017-06-21 15:46 | CARD ---
APPROVED REPORT EXAM: Two-dimensional and M-mode echocardiogram with Doppler and color Doppler. Other Information Quality : GoodRhythm : INDICATION Pulmonary Embolism POST EKOS THROMBOLYSIS PE 2D DIMENSIONS IVSd0.6 (0.7-1.1cm)Aortic Root (2D)2.8 (2.0-3.7cm) LVDd3.1 (3.9-5.9cm)PWd0.8 (0.7-1.1cm) LVDs1.8 (2.5-4.0cm)FS (%) 41.8 % LVEF (%)74.2 (>50%) M-Mode DIMENSIONS RVDd2.26 (2.1-3.2cm)Left Atrium (MM)2.74 (2.5-4.0cm) IVSd0.39 (0.7-1.1cm)Aortic Root2.91 (2.2-3.7cm) LVDd3.31 (4.0-5.6cm)Aortic Cusp Exc.1.92 (1.5-2.0cm) PWd0.75 (0.7-1.1cm)FS (%) 49 % LVDs1.69 (2.0-3.8cm) Mitral Valve MV E Tkimcuhb75.4cm/sMV A Orbfcdfk58.6cm/sE/A ratio0.6 TDI E/Lateral E'0.0E/Medial E'0.0 Tricuspid Valve TR Peak [id number]/sTR Peak [id number] LEFT VENTRICLE The left ventricle is normal size. There is normal left ventricular wall thickness. The left ventricular function is normal. The left ventricular ejection fraction is within the normal range. Transmitral Doppler flow pattern is Grade I-abnormal relaxation pattern. RIGHT VENTRICLE The right ventricle is severely dilated. There is normal right ventricular wall thickness. Systolic function is severely reduced. Right Ventricular septal motion is paradoxical. ATRIA The left atrium size is normal. The right atrium is moderately dilated. Consider a small PFO AORTIC VALVE The aortic valve is normal in structure. No aortic regurgitation is present. There is no aortic valvular stenosis. MITRAL VALVE The mitral valve is normal in structure. There is no mitral valve stenosis. There is no mitral valve regurgitation noted. TRICUSPID VALVE The tricuspid valve is normal in structure. There is severe tricuspid regurgitation. There is severe pulmonary hypertension. GREAT VESSELS The aortic root is normal in size. The IVC is dilated. The IVC collapses <50% with inspiration. <Conclusion> The right ventricle is severely dilated. Systolic function is severely reduced. Right Ventricular septal motion is paradoxical. There is severe tricuspid regurgitation. There is severe pulmonary hypertension. The IVC is dilated.
[2017-06-21 19:33] LABS: ARTERIAL BLOOD GAS HCO3 23.2 mmol/L (21-28); ARTERIAL BLOOD GAS HEMOGLOBIN 11.9 g/dL (11.7-17.4); ARTERIAL BLOOD GAS O2 SAT 76.6 % (95-98); ARTERIAL BLOOD GAS PCO2 36 mm/Hg (35-45); ARTERIAL BLOOD GAS PH 7.41 (7.35-7.45); ARTERIAL BLOOD GAS PO2 37 mm/Hg (80-100); ARTERIAL BLOOD GAS TCO2 23.9 mmol/L (22-28)
[2017-06-21] MEDS: MethylPREDNISolone 40 mg Vial IVP SCH (22:00)
--- NOTE | 2017-06-21 23:03 | CP.PCM.PN ---
Subjective - Date & Time of Evaluation Date of Evaluation: 06/21/17 Time of Evaluation: 23:00 - Subjective Subjective: The patient was seen by me at 10 PM. Patient family said bedside. I spoke the patient's family indicators. Patient is a 57-year-old female with a chronic rheumatoid arthritis. Patient also diagnosed with lupus. Currently not on any medication. Patient admitted to hospital with severe pulmonary hypertension, angiogram was done, showing evidence of mean pulmonary artery pressure of 50. Pulmonary arterial pressure 71/50, according to the biometrics head that H pressure is around 20. CT angiogram, showing subsegmental small PE. Even after the thrombolysis, there is no improvement. On anticoagulation. Considering the nature of the disease patient may have a chronic severe pulmonary hypertension, underlying connective tissue disease, and the pulmonary arterial hypertension secondary to connective tissue cannot be ruled out. I placed the patient unable a subtle, bronchodilators, and corticosteroid. I spoke to the pulmonary evaluation for possible pulmonary hypertension treatment. Discontinue the oxygen supplementation, BiPAP. Patient is at high risk for intubation. Even with the intubation, oxygenation may not improve, are in fact get worse. Spoke to the family Objective - Vital Signs/Intake and Output Vital Signs (last 24 hours): Temp Pulse Resp BP Pulse Ox 98.5 F 109 H 12 95/57 L 85 L 06/21/17 16:05 06/21/17 21:30 06/21/17 22:00 06/21/17 20:58 06/21/17 21:30 Intake and Output: 06/21/17 06/22/17 18:59 06:59 Intake Total 2442 290 Output Total 700 200 Balance 1742 90 - Medications Medications: Current Medications Albuterol/Ipratropium (Duoneb 3 Mg/0.5 Mg (3 Ml) Ud) 3 ml INH RQ6 MEHRDAD Apixaban (Eliquis) 5 mg PO BID [facility] Last Admin: 06/21/17 17:47 Dose: 5 mg Aspirin (Aspirin) 325 mg PO DAILY [facility] Last Admin: 06/21/17 11:42 Dose: 325 mg Potassium Chloride (Potassium Chloride 20 Meq/100 Ml) 20 meq in 100 mls @ 50 mls/hr IVPB ONCE ONE Stop: 06/21/17 23:29 Last Admin: 06/21/17 20:30 Dose: 50 mls/hr Sodium Chloride (Sodium Chloride 0.9%) 1,000 mls @ 30 mls/hr IV .Q24H [facility] Last Admin: 06/21/17 20:35 Dose: 30 mls/hr Methylprednisolone (Solu-Medrol) 20 mg IVP Q12 [facility] Last Admin: 06/21/17 22:00 Dose: 20 mg Pantoprazole Sodium (Protonix Ec Tab) 40 mg PO DAILY [facility] Last Admin: 06/21/17 11:42 Dose: 40 mg Pneumococcal Polyvalent Vaccine (Pneumovax 23 Vaccine) 0.5 ml IM .ONCE ONE Stop: 06/24/17 08:31 - Labs Labs: 06/21/17 06:24 06/21/17 06:23 PT 12.1 SECONDS (9.7-12.2) 06/21/17 00:12 INR 1.1 06/21/17 00:12 APTT 105 SECONDS (21-34) H* D 06/21/17 06:24
[2017-06-22] MEDS: Albuterol-Ipratrop 3 mg / 0.5 (3 ml) UD INH SCH ×5 (00:29→21:06)
[2017-06-22] MEDS ORDERED: Albuterol-Ipratrop 3 mg / 0.5 (3 ml) UD INH STA (00:31)
[2017-06-22] MEDS ORDERED: Albuterol-Ipratrop 3 mg / 0.5 (3 ml) UD ONE (00:31)
[2017-06-22 05:35] LABS: ABG ALLEN TEST POS; ARTERIAL BLOOD GAS HCO3 21.7 mmol/L (21-28); ARTERIAL BLOOD GAS O2 SAT 87.6 % (95-98); ARTERIAL BLOOD GAS PCO2 48 mm/Hg (35-45); ARTERIAL BLOOD GAS PH 7.29 (7.35-7.45); ARTERIAL BLOOD GAS PO2 51 mm/Hg (80-100); ARTERIAL BLOOD GAS TCO2 24.6 mmol/L (22-28)
[2017-06-22 06:26] LABS: BASO % 0.2 % (0.0-2.0); HEMOGLOBIN 12.8 g/dL (11.0-16.0); LYMPH # 0.8 K/uL (1.0-4.3); LYMPH % 13.8 % (20.0-40.0); MEAN CORPUSCULAR HGB CONC 32.6 g/dL (33.0-37.0); MEAN PLATELET VOLUME 9.4 fL (7.2-11.7); MONO # 0.1 K/uL (0.0-0.8); MONO % 2.4 % (0.0-10.0); NEUT # 5.1 K/uL (1.8-7.0); NEUT % 83.6 % (50.0-75.0); NRBC % 0.2 % (0.0-2.0); RBC 4.26 Mil/uL (3.80-5.20); RED CELL DISTRIBUTION WIDTH 15.5 % (11.5-14.5); WHITE BLOOD COUNT 6.1 K/uL (4.8-10.8)
[2017-06-22 06:36] LABS: ALB/GLOB RATIO 0.8 (1.0-2.1); ALBUMIN 2.9 g/dL (3.5-5.0); ALT/SGPT 35 U/L (9-52); AST/SGOT 47 U/L (14-36); BLOOD UREA NITROGEN 4 mg/dL (7-17); CALCIUM 8.1 mg/dl (8.6-10.4); GFR AFRICAN-AMERICAN > 60; GFR NON-AFRICAN AMERICAN > 60; MAGNESIUM 1.6 mg/dL (1.6-2.3)
--- NOTE | 2017-06-22 09:00 | RAD ---
Chest x-ray single frontal view History: Congestive heart failure. Comparison: 06/21/2017 Findings: Diffuse increased interstitial markings. Right hilar prominence. Small left pleural effusion with left basilar consolidative changes. Biapical pleural thickening with upper lobe granulomatous changes. Diffuse increased interstitial lung markings. Mild cardiomegaly. Degenerative changes in the spine and shoulders. Impression: Diffuse increased interstitial markings. Right hilar prominence. Small left pleural effusion with left basilar consolidative changes. Biapical pleural thickening with upper lobe granulomatous changes. Diffuse increased interstitial lung markings. Mild cardiomegaly.
--- NOTE | 2017-06-22 10:34 | CP.PCM.PN ---
<Nereida Coughlin - Last Filed: 06/22/17 11:01> Subjective - Date & Time of Evaluation Date of Evaluation: 06/22/17 Time of Evaluation: 09:00 - Subjective Subjective: Cardiology Progress Note for Dr. Desmond Coughlin DO, PGY-1 Internal Medicine Patient seen and examined at bedside. Patient reports return of lower extremity edema and dyspnea in the interim. Patient is currently on BIPAP, in no respiratory distress at the time of my encounter. Objective - Vital Signs/Intake and Output Vital Signs (last 24 hours): Temp Pulse Resp BP Pulse Ox 97.4 F L 107 H 33 H 119/75 90 L 06/22/17 08:00 06/22/17 08:00 06/22/17 08:00 06/22/17 07:57 06/22/17 08:00 Intake and Output: 06/22/17 06/22/17 06:59 18:59 Intake Total 530 60 Output Total 200 200 Balance 330 -140 - Medications Medications: Current Medications Albuterol/Ipratropium (Duoneb 3 Mg/0.5 Mg (3 Ml) Ud) 3 ml INH RQ6 [facility] Last Admin: 06/22/17 07:44 Dose: 3 ml Apixaban (Eliquis) 5 mg PO BID [facility] Last Admin: 06/21/17 17:47 Dose: 5 mg Aspirin (Aspirin) 325 mg PO DAILY [facility] Last Admin: 06/21/17 11:42 Dose: 325 mg Sodium Chloride (Sodium Chloride 0.9%) 1,000 mls @ 30 mls/hr IV .Q24H [facility] Last Admin: 06/21/17 20:35 Dose: 30 mls/hr Methylprednisolone (Solu-Medrol) 20 mg IVP Q12 [facility] Last Admin: 06/21/17 22:00 Dose: 20 mg Pantoprazole Sodium (Protonix Ec Tab) 40 mg PO DAILY [facility] Last Admin: 06/21/17 11:42 Dose: 40 mg Pneumococcal Polyvalent Vaccine (Pneumovax 23 Vaccine) 0.5 ml IM .ONCE ONE Stop: 06/24/17 08:31 - Labs Labs: 06/22/17 06:18 06/22/17 06:17 PT 12.1 SECONDS (9.7-12.2) 06/21/17 00:12 INR 1.1 06/21/17 00:12 APTT 105 SECONDS (21-34) H* D 06/21/17 06:24 - Constitutional Appears: Non-toxic, Chronically Ill - Head Exam Head Exam: ATRAUMATIC, NORMOCEPHALIC - Eye Exam Eye Exam: EOMI, Normal appearance - Respiratory Exam Respiratory Exam: Decreased Breath Sounds. absent: Accessory Muscle Use - Cardiovascular Exam Cardiovascular Exam: Tachycardia, +S1, +S2 - GI/Abdominal Exam GI & Abdominal Exam: Soft. absent: Guarding, Rebound - Extremities Exam Extremities Exam: absent: Calf Tenderness Additional comments: lower extrtemity 2/4 bilaterally - Neurological Exam Neurological Exam: Alert, Awake, Oriented x3 - Psychiatric Exam Psychiatric exam: Normal Affect, Normal Mood - Skin Skin Exam: Dry, Intact, Normal Color, Warm Assessment and Plan - Assessment and Plan (Free Text) Assessment: 57 year old female with rheumatoid arthritis, possible SLE, immobility for one year, and history of previous PE who is day 2 status post EKOS thrombolysis with catheter directed tPA administration and systemic heparin. 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 1) Continue with Eliquis 5 mg BID 2) Ideally, patient would benefit from Riociguat, given this is best studied in patients with chronic thromboembolic pulmonary hypertension; however, in- patient pharmacy does not carry this medication, nor does it carry any of the PDE-5 inhibitors, or other alternatives for PAH. Would consider contacting social work or case management in regards to providing the patient with the aforementioned medications. 3) Aspirin 325 Continue other medications as per primary Case discussed and reviewed with attending physician, Dr. Logan <Steven Logan - Last Filed: 06/22/17 17:00> Objective - Vital Signs/Intake and Output Vital Signs (last 24 hours): Temp Pulse Resp BP Pulse Ox 97.6 F 107 H 28 H 98/64 L 74 L 06/22/17 16:00 06/22/17 16:10 06/22/17 16:10 06/22/17 15:57 06/22/17 16:10 Intake and Output: 06/22/17 06/22/17 06:59 18:59 Intake Total 530 1072 Output Total 200 500 Balance 330 572 - Medications Medications: Current Medications Albuterol/Ipratropium (Duoneb 3 Mg/0.5 Mg (3 Ml) Ud) 3 ml INH RQ6 [facility] Last Admin: 06/22/17 13:25 Dose: Not Given Apixaban (Eliquis) 5 mg PO BID [facility] Last Admin: 06/22/17 12:04 Dose: 5 mg Aspirin (Aspirin) 325 mg PO DAILY [facility] Last Admin: 06/22/17 12:04 Dose: 325 mg Sodium Chloride (Sodium Chloride 0.9%) 1,000 mls @ 30 mls/hr IV .Q24H [facility] Last Admin: 06/21/17 20:35 Dose: 30 mls/hr Methylprednisolone (Solu-Medrol) 20 mg IVP Q12 [facility] Last Admin: 06/22/17 12:04 Dose: 20 mg Pantoprazole Sodium (Protonix Ec Tab) 40 mg PO DAILY [facility] Last Admin: 06/22/17 12:04 Dose: 40 mg Pneumococcal Polyvalent Vaccine (Pneumovax 23 Vaccine) 0.5 ml IM .ONCE ONE Stop: 06/24/17 08:31 - Labs Labs: 06/22/17 06:18 06/22/17 06:17 PT 12.1 SECONDS (9.7-12.2) 06/21/17 00:12 INR 1.1 06/21/17 00:12 APTT 105 SECONDS (21-34) H* D 06/21/17 06:24 Attending/Attestation - Attestation I have personally seen and examined this patient.: Yes I have fully participated in the care of the patient.: Yes I have reviewed all pertinent clinical information, including history, physical exam and plan: Yes Notes (Text): 06/22/17 17:00 CTEPH cor-pulmonale will need PDE-T inhibitors and vasodilators for pulmonary HTN cont eliquis add digoxin and lasix
[2017-06-22 11:26] LABS: B-TYPE NATRIURETIC PEPTIDE 6300 pg/mL (0-900)
[2017-06-22] MEDS: Pantoprazole 40 mg EC Tab PO SCH (12:04)
[2017-06-22] MEDS: MethylPREDNISolone 40 mg Vial IVP SCH ×2 (12:04→22:50)
[2017-06-22] MEDS ORDERED: Digoxin 125 mcg (0.125 mg) Tab PO STA (12:12)
[2017-06-22] MEDS ORDERED: Digoxin 125 mcg (0.125 mg) Tab PO ONE (13:45)
--- NOTE | 2017-06-22 13:51 | NM ---
COMPARISON: June 21, 2017. TECHNIQUE: 9.3 mCi technetium 99-m Xe-133 Gas. 3.1 mCI technetium 99-m MAA administered intravenously. FINDINGS: VENTILATION COMPONENT: Mildly heterogeneous ventilation. PERFUSION COMPONENT: Heterogeneous distribution of radionuclide. No geographic, segmental, lobar abnormalities apparent on the present examination. Incidental finding(s): Radionuclide identified in the kidneys, not clinically consequential IMPRESSION: Low probability ventilation perfusion scan for pulmonary embolism.
--- NOTE | 2017-06-22 18:00 | CP.PCM.CON ---
History of Present Illness - History of Present Illness History of Present Illness: progressive BARNES for many (15) years which worsened in the last 3 months h/o RA/ SLE was on embrel non smoker right heart cath reveal RA 17; RV 76/23; PA 69/41 mean 50 PCW not preformed admitted for PE s/p lytic therapy currently very sob on O2 via NRB Review of Systems - Review of Systems All systems: reviewed and no additional remarkable complaints except - Respiratory Respiratory: Dyspnea on Exertion Past Patient History - Past Medical History & Family History Past Medical History?: Yes - Past Social History Smoking Status: Never Smoked Alcohol: None - CARDIAC Hx Cardiac Disorders: Yes Hx Congestive Heart Failure: No Hx Hypercholesterolemia: No Hx Hypertension: Yes Other/Comment: stents - PULMONARY Hx Respiratory Disorders: Yes Hx Chronic Obstructive Pulmonary Disease (COPD): No - NEUROLOGICAL Hx Neurological Disorder: No HX Cerebrovascular Accident: No - HEENT Hx HEENT Problems: No - RENAL Hx Chronic Kidney Disease: No - ENDOCRINE/METABOLIC Hx Endocrine Disorders: No Hx Diabetes Mellitus Type 1: No Hx Diabetes Mellitus Type 2: No Hx Hypothyroidism: No - HEMATOLOGICAL/ONCOLOGICAL Hx Human Immunodeficiency Virus (HIV): No - INTEGUMENTARY Hx Dermatological Problems: No - MUSCULOSKELETAL/RHEUMATOLOGICAL Hx Musculoskeletal Disorders: Yes Hx Arthritis: Yes Hx Falls: No Hx Rheumatoid Arthritis: Yes - GASTROINTESTINAL Hx Gastrointestinal Disorders: No Hx Constipation: Yes - GENITOURINARY/GYNECOLOGICAL Hx Genitourinary Disorders: No - PSYCHIATRIC Hx Psychophysiologic Disorder: Yes Hx Anxiety: Yes Hx Depression: Yes Hx Physical Abuse: No Hx Substance Use: No - SURGICAL HISTORY Hx Surgeries: Yes Hx Joint Replacement: Yes (lenard hip/knee replacement) Other/Comment: B/l hand surgery - ANESTHESIA Hx Anesthesia: Yes Hx Anesthesia Reactions: No Meds Allergies/Adverse Reactions: Allergies Allergy/AdvReac Type Severity Reaction Status Date / Time asparagus Allergy RASH Verified 06/18/17 19:34 - Medications Medications: Current Medications Albuterol/Ipratropium (Duoneb 3 Mg/0.5 Mg (3 Ml) Ud) 3 ml INH RQ6 [facility] Last Admin: 06/22/17 13:25 Dose: Not Given Apixaban (Eliquis) 5 mg PO BID [facility] Last Admin: 06/22/17 17:30 Dose: 5 mg Aspirin (Aspirin) 325 mg PO DAILY [facility] Last Admin: 06/22/17 12:04 Dose: 325 mg Sodium Chloride (Sodium Chloride 0.9%) 1,000 mls @ 30 mls/hr IV .Q24H [facility] Last Admin: 06/21/17 20:35 Dose: 30 mls/hr Methylprednisolone (Solu-Medrol) 20 mg IVP Q12 [facility] Last Admin: 06/22/17 12:04 Dose: 20 mg Pantoprazole Sodium (Protonix Ec Tab) 40 mg PO DAILY [facility] Last Admin: 06/22/17 12:04 Dose: 40 mg Pneumococcal Polyvalent Vaccine (Pneumovax 23 Vaccine) 0.5 ml IM .ONCE ONE Stop: 06/24/17 08:31 Physical Exam - Constitutional Appears: Chronically Ill - Head Exam Head Exam: ATRAUMATIC, NORMOCEPHALIC - Eye Exam Eye Exam: Normal appearance - ENT Exam ENT Exam: Mucous Membranes Moist - Respiratory Exam Respiratory Exam: Decreased Breath Sounds - Cardiovascular Exam Cardiovascular Exam: REGULAR RHYTHM, +S1, +S2, +S4 - GI/Abdominal Exam GI & Abdominal Exam: Normal Bowel Sounds - Rectal Exam Rectal Exam: Deferred - Neurological Exam Neurological exam: Alert, Oriented x3 - Psychiatric Exam Psychiatric exam: Normal Affect, Normal Mood - Skin Skin Exam: Intact Results - Vital Signs Recent Vital Signs: Last Vital Signs Temp 97.6 F 06/22/17 16:00 Pulse 101 H 06/22/17 17:10 Resp 30 H 06/22/17 17:10 BP 108/70 06/22/17 16:57 Pulse Ox 90 L 06/22/17 17:10 - Labs Result Diagrams: 06/22/17 06:18 06/22/17 06:17 Labs: Laboratory Results - last 24 hr 06/21/17 06/22/17 06/22/17 19:30 05:06 06:17 WBC RBC Hgb Hct MCV MCH MCHC RDW Plt Count MPV Neut % (Auto) Lymph % (Auto) [place] % (Auto) Eos % (Auto) Baso % (Auto) Neut # (Auto) Lymph # (Auto) [place] # (Auto) Eos # (Auto) Baso # (Auto) ESR Puncture Site Lra Rr pCO2 36 48 H pO2 37 L* 51 L HCO3 23.2 21.7 ABG pH 7.41 7.29 L ABG Total CO2 23.9 24.6 ABG O2 Saturation 76.6 L 87.6 L ABG Base Excess -1.5 -3.8 L ABG Hemoglobin 11.9 13.0 ABG Carboxyhemoglobin 1.5 1.6 H POC ABG HHb (Measured) 22.9 H 12.1 H ABG Methemoglobin 0.6 1.0 Cedric Test Na Pos A-a O2 Difference 346.0 602.0 Respiratory Index 9.4 11.8 Hgb O2 Saturation 75.0 L 85.3 L Liter Flow 5.0 Vent Mode Bipap FiO2 60.0 100.0 Inspiratory BiPAP 14 Expiratory BiPAP 6 Crit Value Called To Alejandro haynes Crit Value Called By Ana Crit Value Read Back Y Blood Gas Notified Time 1932 Sodium 139 Potassium 5.1 Chloride 108 H Carbon Dioxide 22 Anion Gap 14 BUN 4 L Creatinine 0.3 L Est GFR ( Amer) > 60 Est GFR (Non-Af Amer) > 60 Random Glucose 128 H Calcium 8.1 L Phosphorus 3.6 Magnesium 1.6 Total Bilirubin 0.5 AST 47 H D ALT 35 Alkaline Phosphatase 159 H D C-React Prot High Sens NT-Pro-B Natriuret Pep 6300 H Total Protein 6.6 Albumin 2.9 L Globulin 3.8 Albumin/Globulin Ratio 0.8 L 06/22/17 06/22/17 06/22/17 06:17 06:18 11:53 WBC 6.1 RBC 4.26 Hgb 12.8 Hct 39.1 MCV 92.0 MCH 30.0 MCHC 32.6 L RDW 15.5 H Plt Count 291 MPV 9.4 Neut % (Auto) 83.6 H Lymph % (Auto) 13.8 L [place] % (Auto) 2.4 Eos % (Auto) 0.0 Baso % (Auto) 0.2 Neut # (Auto) 5.1 Lymph # (Auto) 0.8 L [place] # (Auto) 0.1 Eos # (Auto) 0.0 Baso # (Auto) 0.0 ESR 45 H Puncture Site pCO2 pO2 HCO3 ABG pH ABG Total CO2 ABG O2 Saturation ABG Base Excess ABG Hemoglobin ABG Carboxyhemoglobin POC ABG HHb (Measured) ABG Methemoglobin Cedric Test A-a O2 Difference Respiratory Index Hgb O2 Saturation Liter Flow Vent Mode FiO2 Inspiratory BiPAP Expiratory BiPAP Crit Value Called To Crit Value Called By Crit Value Read Back Blood Gas Notified Time Sodium Potassium Chloride Carbon Dioxide Anion Gap BUN Creatinine Est GFR ( Amer) Est GFR (Non-Af Amer) Random Glucose Calcium Phosphorus Magnesium Total Bilirubin AST ALT Alkaline Phosphatase C-React Prot High Sens > 15.00 H NT-Pro-B Natriuret Pep Total Protein Albumin Globulin Albumin/Globulin Ratio 06/22/17 06/22/17 11:58 11:58 WBC RBC Hgb Hct MCV MCH MCHC RDW Plt Count MPV Neut % (Auto) Lymph % (Auto) [place] % (Auto) Eos % (Auto) Baso % (Auto) Neut # (Auto) Lymph # (Auto) [place] # (Auto) Eos # (Auto) Baso # (Auto) ESR Puncture Site pCO2 pO2 HCO3 ABG pH ABG Total CO2 ABG O2 Saturation ABG Base Excess ABG Hemoglobin ABG Carboxyhemoglobin POC ABG HHb (Measured) ABG Methemoglobin Cedric Test A-a O2 Difference Respiratory Index Hgb O2 Saturation Liter Flow Vent Mode FiO2 Inspiratory BiPAP Expiratory BiPAP Crit Value Called To Crit Value Called By Crit Value Read Back Blood Gas Notified Time Sodium Potassium Chloride Carbon Dioxide Anion Gap BUN Creatinine Est GFR ( Amer) Est GFR (Non-Af Amer) Random Glucose Calcium Phosphorus Magnesium Total Bilirubin AST ALT Alkaline Phosphatase C-React Prot High Sens > 15.00 H NT-Pro-B Natriuret Pep 7280 H Total Protein Albumin Globulin Albumin/Globulin Ratio Assessment & Plan (1) Pulmonary HTN Status: Chronic Priority: High Comment: will require dual therapy as per current guidelines Arun Ward (2) Pulmonary emboli Status: Acute Priority: High (3) RA (rheumatoid arthritis) Status: Chronic (4) Femur fracture, right Status: Chronic (5) Right ventricular enlargement Status: Chronic (6) Shortness of breath Status: Chronic
--- NOTE | 2017-06-22 18:04 | CP.CCUPN ---
<Leo Carrasco - Last Filed: 06/22/17 18:40> CCU Subjective - Physician Review Events Since Last Encounter (Free Text): 06/22/17 18:02 Per nursing patient's O2 saturation dropped into the 70's overnight. No other acute events occurred. Subjective (Free Text): 06/22/17 18:02 Patient seen and examined at bedside. Patient denies any complaints at this time. Critical Care Time Spent (in minutes): 45 CCU Objective - Vital Signs / Intake & Output Vital Signs (Last 4 hours): Vital Signs Temp Pulse Resp BP Pulse Ox 06/22/17 17:10 101 H 30 H 90 L 06/22/17 16:57 100 H 29 H 108/70 89 L 06/22/17 16:50 99 H 31 H 91 L 06/22/17 16:40 97 H 16 90 L 06/22/17 16:30 102 H 28 H 91 L 06/22/17 16:10 107 H 28 H 74 L 06/22/17 16:00 97.6 F 06/22/17 15:57 98/64 L 06/22/17 15:50 114 H 37 H 91 L 06/22/17 15:40 107 H 33 H 92 L 06/22/17 15:30 105 H 28 H 86 L 06/22/17 14:57 110 H 17 98/67 L 85 L 06/22/17 14:40 113 H 28 H 86 L 06/22/17 14:10 106 H 26 H 83 L Intake and Output (Last 8hrs): Intake & Output 06/22/17 06/22/17 06/22/17 06:59 14:59 22:59 Intake Total 240 952 150 Output Total 0 300 400 Balance 240 652 -250 Weight 80 lb 11.301 oz Intake: Intake, IV Amount 240 240 90 Right Forearm 240 240 90 Oral 712 60 Output: Urine 0 300 400 Urine, Voided 0 300 400 Other: # Voids Urine, Voided 1 2 - Physical Exam Head: Positive for: Atraumatic, Normocephalic Pupils: Positive for: PERRL Extroacular Muscles: Positive for: EOMI Conjunctiva: Positive for: Normal Mouth: Positive for: Moist Mucous Membranes Respiratory/Chest: Positive for: Clear to Auscultation, Respiratory Distress Cardiovascular: Positive for: Regular Rate and Rhythm, Normal S1, S2 Abdomen: Positive for: Normal Bowel Sounds Upper Extremity: Positive for: Normal Inspection, Other (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 Negative for: Edema Lower Extremity: Positive for: Normal Inspection Skin: Positive for: Warm, Dry, Normal Color Psychiatric: Positive for: Alert - Medications Active Medications: Active Medications Generic Name Dose Route Start Last Admin Trade Name Freq PRN Reason Stop Dose Admin Albuterol/Ipratropium 3 ml 06/22/17 02:00 06/22/17 13:25 Duoneb 3 Mg/0.5 Mg (3 Ml) Ud INH Not Given RQ6 MEHRDAD Apixaban 5 mg 06/21/17 12:30 06/22/17 17:30 Eliquis PO 5 mg BID MEHRDAD Administration Aspirin 325 mg 06/21/17 10:00 06/22/17 12:04 Aspirin PO 325 mg DAILY MEHRDAD Administration Sodium Chloride 1,000 mls @ 30 mls/hr 06/21/17 20:11 06/21/17 20:35 Sodium Chloride 0.9% IV 30 mls/hr .Q24H MEHRDAD Administration Methylprednisolone 20 mg 06/21/17 22:00 06/22/17 12:04 Solu-Medrol IVP 20 mg Q12 MEHRDAD Administration Pantoprazole Sodium 40 mg 06/21/17 10:00 06/22/17 12:04 Protonix Ec Tab PO 40 mg DAILY MEHRDAD Administration Pneumococcal Polyvalent Vaccine 0.5 ml 06/24/17 08:30 Pneumovax 23 Vaccine IM 06/24/17 08:31 .ONCE ONE - Patient Studies Lab Studies: Microbiology Studies 06/20/17 22:21 MRSA Culture (Admit) - Final Nose MRSA DETECTED Lab Studies 06/22/17 06/22/17 06/22/17 Range/Units 11:58 11:58 11:53 WBC (4.8-10.8) K/uL RBC (3.80-5.20) Mil/uL Hgb (11.0-16.0) g/dL Hct (34.0-47.0) % MCV (81.0-99.0) fL MCH (27.0-31.0) pg MCHC (33.0-37.0) g/dL RDW (11.5-14.5) % Plt Count (130-400) K/uL MPV (7.2-11.7) fL Neut % (Auto) (50.0-75.0) % Lymph % (Auto) (20.0-40.0) % [place] % (Auto) (0.0-10.0) % Eos % (Auto) (0.0-4.0) % Baso % (Auto) (0.0-2.0) % Neut # (Auto) (1.8-7.0) K/uL Lymph # (Auto) (1.0-4.3) K/uL [place] # (Auto) (0.0-0.8) K/uL Eos # (Auto) (0.0-0.7) K/uL Baso # (Auto) (0.0-0.2) K/uL ESR 45 H (0-20) mm/hr Puncture Site pCO2 (35-45) mm/Hg pO2 (80-100) mm/Hg HCO3 (21-28) mmol/L ABG pH (7.35-7.45) ABG Total CO2 (22-28) mmol/L ABG O2 Saturation (95-98) % ABG Base Excess (-2.0-3.0) mmol/L ABG Hemoglobin (11.7-17.4) g/dL ABG Carboxyhemoglobin (0.5-1.5) % POC ABG HHb (Measured) (0.0-5.0) % ABG Methemoglobin (0.0-3.0) % Cedric Test A-a O2 Difference mm/Hg Respiratory Index Hgb O2 Saturation (95.0-98.0) % Liter Flow Vent Mode FiO2 % Inspiratory BiPAP Expiratory BiPAP Crit Value Called To Crit Value Called By Crit Value Read Back Blood Gas Notified Time Sodium (132-148) mmol/L Potassium (3.6-5.2) mmol/L Chloride (98-107) mmol/L Carbon Dioxide (22-30) mmol/L Anion Gap (10-20) BUN (7-17) mg/dL Creatinine (0.7-1.2) mg/dL Est GFR ( Amer) Est GFR (Non-Af Amer) Random Glucose (65-105) mg/dL Calcium (8.6-10.4) mg/dl Phosphorus (2.5-4.5) mg/dL Magnesium (1.6-2.3) mg/dL Total Bilirubin (0.2-1.3) mg/dL AST (14-36) U/L ALT (9-52) U/L Alkaline Phosphatase (38-126) U/L C-React Prot High Sens > 15.00 H (1.00-3.00) mg/L NT-Pro-B Natriuret Pep 7280 H (0-900) pg/mL Total Protein (6.3-8.3) g/dL Albumin (3.5-5.0) g/dL Globulin (2.2-3.9) gm/dL Albumin/Globulin Ratio (1.0-2.1) 06/22/17 06/22/17 06/22/17 Range/Units 06:18 06:17 06:17 WBC 6.1 (4.8-10.8) K/uL RBC 4.26 (3.80-5.20) Mil/uL Hgb 12.8 (11.0-16.0) g/dL Hct 39.1 (34.0-47.0) % MCV 92.0 (81.0-99.0) fL MCH 30.0 (27.0-31.0) pg MCHC 32.6 L (33.0-37.0) g/dL RDW 15.5 H (11.5-14.5) % Plt Count 291 (130-400) K/uL MPV 9.4 (7.2-11.7) fL Neut % (Auto) 83.6 H (50.0-75.0) % Lymph % (Auto) 13.8 L (20.0-40.0) % [place] % (Auto) 2.4 (0.0-10.0) % Eos % (Auto) 0.0 (0.0-4.0) % Baso % (Auto) 0.2 (0.0-2.0) % Neut # (Auto) 5.1 (1.8-7.0) K/uL Lymph # (Auto) 0.8 L (1.0-4.3) K/uL [place] # (Auto) 0.1 (0.0-0.8) K/uL Eos # (Auto) 0.0 (0.0-0.7) K/uL Baso # (Auto) 0.0 (0.0-0.2) K/uL ESR (0-20) mm/hr Puncture Site pCO2 (35-45) mm/Hg pO2 (80-100) mm/Hg HCO3 (21-28) mmol/L ABG pH (7.35-7.45) ABG Total CO2 (22-28) mmol/L ABG O2 Saturation (95-98) % ABG Base Excess (-2.0-3.0) mmol/L ABG Hemoglobin (11.7-17.4) g/dL ABG Carboxyhemoglobin (0.5-1.5) % POC ABG HHb (Measured) (0.0-5.0) % ABG Methemoglobin (0.0-3.0) % Cedric Test A-a O2 Difference mm/Hg Respiratory Index Hgb O2 Saturation (95.0-98.0) % Liter Flow Vent Mode FiO2 % Inspiratory BiPAP Expiratory BiPAP Crit Value Called To Crit Value Called By Crit Value Read Back Blood Gas Notified Time Sodium 139 (132-148) mmol/L Potassium 5.1 (3.6-5.2) mmol/L Chloride 108 H (98-107) mmol/L Carbon Dioxide 22 (22-30) mmol/L Anion Gap 14 (10-20) BUN 4 L (7-17) mg/dL Creatinine 0.3 L (0.7-1.2) mg/dL Est GFR ( Amer) > 60 Est GFR (Non-Af Amer) > 60 Random Glucose 128 H (65-105) mg/dL Calcium 8.1 L (8.6-10.4) mg/dl Phosphorus 3.6 (2.5-4.5) mg/dL Magnesium 1.6 (1.6-2.3) mg/dL Total Bilirubin 0.5 (0.2-1.3) mg/dL AST 47 H D (14-36) U/L ALT 35 (9-52) U/L Alkaline Phosphatase 159 H D (38-126) U/L C-React Prot High Sens > 15.00 H (1.00-3.00) mg/L NT-Pro-B Natriuret Pep 6300 H (0-900) pg/mL Total Protein 6.6 (6.3-8.3) g/dL Albumin 2.9 L (3.5-5.0) g/dL Globulin 3.8 (2.2-3.9) gm/dL Albumin/Globulin Ratio 0.8 L (1.0-2.1) 06/22/17 06/21/17 Range/Units 05:06 19:30 WBC (4.8-10.8) K/uL RBC (3.80-5.20) Mil/uL Hgb (11.0-16.0) g/dL Hct (34.0-47.0) % MCV (81.0-99.0) fL MCH (27.0-31.0) pg MCHC (33.0-37.0) g/dL RDW (11.5-14.5) % Plt Count (130-400) K/uL MPV (7.2-11.7) fL Neut % (Auto) (50.0-75.0) % Lymph % (Auto) (20.0-40.0) % [place] % (Auto) (0.0-10.0) % Eos % (Auto) (0.0-4.0) % Baso % (Auto) (0.0-2.0) % Neut # (Auto) (1.8-7.0) K/uL Lymph # (Auto) (1.0-4.3) K/uL [place] # (Auto) (0.0-0.8) K/uL Eos # (Auto) (0.0-0.7) K/uL Baso # (Auto) (0.0-0.2) K/uL ESR (0-20) mm/hr Puncture Site Rr Lra pCO2 48 H 36 (35-45) mm/Hg pO2 51 L 37 L* (80-100) mm/Hg HCO3 21.7 23.2 (21-28) mmol/L ABG pH 7.29 L 7.41 (7.35-7.45) ABG Total CO2 24.6 23.9 (22-28) mmol/L ABG O2 Saturation 87.6 L 76.6 L (95-98) % ABG Base Excess -3.8 L -1.5 (-2.0-3.0) mmol/L ABG Hemoglobin 13.0 11.9 (11.7-17.4) g/dL ABG Carboxyhemoglobin 1.6 H 1.5 (0.5-1.5) % POC ABG HHb (Measured) 12.1 H 22.9 H (0.0-5.0) % ABG Methemoglobin 1.0 0.6 (0.0-3.0) % Cedric Test Pos Na A-a O2 Difference 602.0 346.0 mm/Hg Respiratory Index 11.8 9.4 Hgb O2 Saturation 85.3 L 75.0 L (95.0-98.0) % Liter Flow 5.0 Vent Mode Bipap FiO2 100.0 60.0 % Inspiratory BiPAP 14 Expiratory BiPAP 6 Crit Value Called To Alejandro haynes Crit Value Called By Ana Crit Value Read Back Y Blood Gas Notified Time 1932 Sodium (132-148) mmol/L Potassium (3.6-5.2) mmol/L Chloride (98-107) mmol/L Carbon Dioxide (22-30) mmol/L Anion Gap (10-20) BUN (7-17) mg/dL Creatinine (0.7-1.2) mg/dL Est GFR ( Amer) Est GFR (Non-Af Amer) Random Glucose (65-105) mg/dL Calcium (8.6-10.4) mg/dl Phosphorus (2.5-4.5) mg/dL Magnesium (1.6-2.3) mg/dL Total Bilirubin (0.2-1.3) mg/dL AST (14-36) U/L ALT (9-52) U/L Alkaline Phosphatase (38-126) U/L C-React Prot High Sens (1.00-3.00) mg/L NT-Pro-B Natriuret Pep (0-900) pg/mL Total Protein (6.3-8.3) g/dL Albumin (3.5-5.0) g/dL Globulin (2.2-3.9) gm/dL Albumin/Globulin Ratio (1.0-2.1) Laboratory Results - last 24 hr 06/21/17 06/22/17 06/22/17 19:30 05:06 06:17 WBC RBC Hgb Hct MCV MCH MCHC RDW Plt Count MPV Neut % (Auto) Lymph % (Auto) [place] % (Auto) Eos % (Auto) Baso % (Auto) Neut # (Auto) Lymph # (Auto) [place] # (Auto) Eos # (Auto) Baso # (Auto) ESR Puncture Site Lra Rr pCO2 36 48 H pO2 37 L* 51 L HCO3 23.2 21.7 ABG pH 7.41 7.29 L ABG Total CO2 23.9 24.6 ABG O2 Saturation 76.6 L 87.6 L ABG Base Excess -1.5 -3.8 L ABG Hemoglobin 11.9 13.0 ABG Carboxyhemoglobin 1.5 1.6 H POC ABG HHb (Measured) 22.9 H 12.1 H ABG Methemoglobin 0.6 1.0 Cedric Test Na Pos A-a O2 Difference 346.0 602.0 Respiratory Index 9.4 11.8 Hgb O2 Saturation 75.0 L 85.3 L Liter Flow 5.0 Vent Mode Bipap FiO2 60.0 100.0 Inspiratory BiPAP 14 Expiratory BiPAP 6 Crit Value Called To Alejandro haynes Crit Value Called By Ana Crit Value Read Back Y Blood Gas Notified Time 1932 Sodium 139 Potassium 5.1 Chloride 108 H Carbon Dioxide 22 Anion Gap 14 BUN 4 L Creatinine 0.3 L Est GFR ( Amer) > 60 Est GFR (Non-Af Amer) > 60 Random Glucose 128 H Calcium 8.1 L Phosphorus 3.6 Magnesium 1.6 Total Bilirubin 0.5 AST 47 H D ALT 35 Alkaline Phosphatase 159 H D C-React Prot High Sens NT-Pro-B Natriuret Pep 6300 H Total Protein 6.6 Albumin 2.9 L Globulin 3.8 Albumin/Globulin Ratio 0.8 L 06/22/17 06/22/17 06/22/17 06:17 06:18 11:53 WBC 6.1 RBC 4.26 Hgb 12.8 Hct 39.1 MCV 92.0 MCH 30.0 MCHC 32.6 L RDW 15.5 H Plt Count 291 MPV 9.4 Neut % (Auto) 83.6 H Lymph % (Auto) 13.8 L [place] % (Auto) 2.4 Eos % (Auto) 0.0 Baso % (Auto) 0.2 Neut # (Auto) 5.1 Lymph # (Auto) 0.8 L [place] # (Auto) 0.1 Eos # (Auto) 0.0 Baso # (Auto) 0.0 ESR 45 H Puncture Site pCO2 pO2 HCO3 ABG pH ABG Total CO2 ABG O2 Saturation ABG Base Excess ABG Hemoglobin ABG Carboxyhemoglobin POC ABG HHb (Measured) ABG Methemoglobin Cedric Test A-a O2 Difference Respiratory Index Hgb O2 Saturation Liter Flow Vent Mode FiO2 Inspiratory BiPAP Expiratory BiPAP Crit Value Called To Crit Value Called By Crit Value Read Back Blood Gas Notified Time Sodium Potassium Chloride Carbon Dioxide Anion Gap BUN Creatinine Est GFR ( Amer) Est GFR (Non-Af Amer) Random Glucose Calcium Phosphorus Magnesium Total Bilirubin AST ALT Alkaline Phosphatase C-React Prot High Sens > 15.00 H NT-Pro-B Natriuret Pep Total Protein Albumin Globulin Albumin/Globulin Ratio 06/22/17 06/22/17 11:58 11:58 WBC RBC Hgb Hct MCV MCH MCHC RDW Plt Count MPV Neut % (Auto) Lymph % (Auto) [place] % (Auto) Eos % (Auto) Baso % (Auto) Neut # (Auto) Lymph # (Auto) [place] # (Auto) Eos # (Auto) Baso # (Auto) ESR Puncture Site pCO2 pO2 HCO3 ABG pH ABG Total CO2 ABG O2 Saturation ABG Base Excess ABG Hemoglobin ABG Carboxyhemoglobin POC ABG HHb (Measured) ABG Methemoglobin Cedric Test A-a O2 Difference Respiratory Index Hgb O2 Saturation Liter Flow Vent Mode FiO2 Inspiratory BiPAP Expiratory BiPAP Crit Value Called To Crit Value Called By Crit Value Read Back Blood Gas Notified Time Sodium Potassium Chloride Carbon Dioxide Anion Gap BUN Creatinine Est GFR ( Amer) Est GFR (Non-Af Amer) Random Glucose Calcium Phosphorus Magnesium Total Bilirubin AST ALT Alkaline Phosphatase C-React Prot High Sens > 15.00 H NT-Pro-B Natriuret Pep 7280 H Total Protein Albumin Globulin Albumin/Globulin Ratio Review of Systems - EENT Eyes: absent: Blurred Vision, Discharge, Loss of Peripheral Vision, Loss of Vision Ears: absent: Ear Discharge, Dizziness Nose/Mouth/Throat: absent: Post Nasal Drip, Dysphagia, Hoarsness, Facial Pain - Cardiovascular Cardiovascular: absent: Chest Pain, Irregular Heart Rhythm, Palpitations, Pedal Edema, Slow Heart Rate, Syncope - Respiratory Respiratory: absent: Dyspnea, Hemoptysis, Stridor, Pain on Inspiration - Gastrointestinal Gastrointestinal: absent: Belching, Change in Stool Character, Fecal Incontinence, Melena, Nausea, Vomiting - Genitourinary Genitourinary: absent: Urinary Urgency, Bladder Distension - Musculoskeletal Musculoskeletal: absent: Arthralgias, Muscle Weakness, Myalgias, Tingling - Integumentary Integumentary: absent: Change in Hair, Pruritus, Rash, Swelling - Neurological Neurological: absent: Numbness, Restless Legs, Vertigo, Weakness - Psychiatric Psychiatric: UNREMARKABLE. absent: Anxiety, Change in Appetite, Difficulty Concentrating Critical Care Progress Note - Nutrition Nutrition: Nutrition Category Date Time Status Heart Healthy Diet [DIET] Diets 06/21/17 Lunch Active Assessment/Plan - Assessment and Plan (Free Text) Assessment: 57 year old female with a past medical history of rheumatoid arthritis, immobility for one year, and a previous PE who is day one s/p EKOS thrombolysis for right PE with systemic heparin and localized tPA. Plan: Heparin drip discontinued. Eliquis 5mg PO BID Started today. Repeat ECho in a couple of days. Electrolye replacement a needed. Aspirin 325mg PO Daily IV solumedrol 20mg q12 IVP. Will require dual therapy as per current guidelines Arun Ward per Pulmonary Rec's. PPX -Protonix 40mg PO Daily -NS @30cc/hr <Lorenzo Adam - Last Filed: 06/22/17 18:44> CCU Objective - Vital Signs / Intake & Output Vital Signs (Last 4 hours): Vital Signs Temp Pulse Resp BP Pulse Ox 06/22/17 18:00 107 H 26 H 85 L 06/22/17 17:57 114/82 06/22/17 17:40 100 H 22 91 L 06/22/17 17:30 103 H 19 89 L 06/22/17 17:10 101 H 30 H 90 L 06/22/17 16:57 100 H 29 H 108/70 89 L 06/22/17 16:50 99 H 31 H 91 L 06/22/17 16:40 97 H 16 90 L 06/22/17 16:30 102 H 28 H 91 L 06/22/17 16:10 107 H 28 H 74 L 06/22/17 16:00 97.6 F 06/22/17 15:57 98/64 L 06/22/17 15:50 114 H 37 H 91 L 06/22/17 15:40 107 H 33 H 92 L 06/22/17 15:30 105 H 28 H 86 L 06/22/17 14:57 110 H 17 98/67 L 85 L Intake and Output (Last 8hrs): Intake & Output 06/22/17 06/22/17 06/22/17 06:59 14:59 22:59 Intake Total 240 952 540 Output Total 0 300 400 Balance 240 652 140 Weight 80 lb 11.301 oz Intake: Intake, IV Amount 240 240 120 Right Forearm 240 240 120 Oral 712 420 Output: Urine 0 300 400 Urine, Voided 0 300 400 Other: # Voids Urine, Voided 1 2 - Medications Active Medications: Active Medications Generic Name Dose Route Start Last Admin Trade Name Freq PRN Reason Stop Dose Admin Albuterol/Ipratropium 3 ml 06/22/17 02:00 06/22/17 13:25 Duoneb 3 Mg/0.5 Mg (3 Ml) Ud INH Not Given RQ6 MEHRDAD Apixaban 5 mg 06/21/17 12:30 06/22/17 17:30 Eliquis PO 5 mg BID MEHRDAD Administration Aspirin 325 mg 06/21/17 10:00 06/22/17 12:04 Aspirin PO 325 mg DAILY MEHRDAD Administration Sodium Chloride 1,000 mls @ 30 mls/hr 06/21/17 20:11 06/21/17 20:35 Sodium Chloride 0.9% IV 30 mls/hr .Q24H MEHRDAD Administration Methylprednisolone 20 mg 06/21/17 22:00 06/22/17 12:04 Solu-Medrol IVP 20 mg Q12 MEHRDAD Administration Pantoprazole Sodium 40 mg 06/21/17 10:00 06/22/17 12:04 Protonix Ec Tab PO 40 mg DAILY MEHRDAD Administration Pneumococcal Polyvalent Vaccine 0.5 ml 06/24/17 08:30 Pneumovax 23 Vaccine IM 06/24/17 08:31 .ONCE ONE - Patient Studies Lab Studies: Microbiology Studies 06/20/17 22:21 MRSA Culture (Admit) - Final Nose MRSA DETECTED Lab Studies 06/22/17 06/22/17 06/22/17 Range/Units 11:58 11:58 11:53 WBC (4.8-10.8) K/uL RBC (3.80-5.20) Mil/uL Hgb (11.0-16.0) g/dL Hct (34.0-47.0) % MCV (81.0-99.0) fL MCH (27.0-31.0) pg MCHC (33.0-37.0) g/dL RDW (11.5-14.5) % Plt Count (130-400) K/uL MPV (7.2-11.7) fL Neut % (Auto) (50.0-75.0) % Lymph % (Auto) (20.0-40.0) % [place] % (Auto) (0.0-10.0) % Eos % (Auto) (0.0-4.0) % Baso % (Auto) (0.0-2.0) % Neut # (Auto) (1.8-7.0) K/uL Lymph # (Auto) (1.0-4.3) K/uL [place] # (Auto) (0.0-0.8) K/uL Eos # (Auto) (0.0-0.7) K/uL Baso # (Auto) (0.0-0.2) K/uL ESR 45 H (0-20) mm/hr Puncture Site pCO2 (35-45) mm/Hg pO2 (80-100) mm/Hg HCO3 (21-28) mmol/L ABG pH (7.35-7.45) ABG Total CO2 (22-28) mmol/L ABG O2 Saturation (95-98) % ABG Base Excess (-2.0-3.0) mmol/L ABG Hemoglobin (11.7-17.4) g/dL ABG Carboxyhemoglobin (0.5-1.5) % POC ABG HHb (Measured) (0.0-5.0) % ABG Methemoglobin (0.0-3.0) % Cedric Test A-a O2 Difference mm/Hg Respiratory Index Hgb O2 Saturation (95.0-98.0) % Liter Flow Vent Mode FiO2 % Inspiratory BiPAP Expiratory BiPAP Crit Value Called To Crit Value Called By Crit Value Read Back Blood Gas Notified Time Sodium (132-148) mmol/L Potassium (3.6-5.2) mmol/L Chloride (98-107) mmol/L Carbon Dioxide (22-30) mmol/L Anion Gap (10-20) BUN (7-17) mg/dL Creatinine (0.7-1.2) mg/dL Est GFR ( Amer) Est GFR (Non-Af Amer) Random Glucose (65-105) mg/dL Calcium (8.6-10.4) mg/dl Phosphorus (2.5-4.5) mg/dL Magnesium (1.6-2.3) mg/dL Total Bilirubin (0.2-1.3) mg/dL AST (14-36) U/L ALT (9-52) U/L Alkaline Phosphatase (38-126) U/L C-React Prot High Sens > 15.00 H (1.00-3.00) mg/L NT-Pro-B Natriuret Pep 7280 H (0-900) pg/mL Total Protein (6.3-8.3) g/dL Albumin (3.5-5.0) g/dL Globulin (2.2-3.9) gm/dL Albumin/Globulin Ratio (1.0-2.1) 06/22/17 06/22/17 06/22/17 Range/Units 06:18 06:17 06:17 WBC 6.1 (4.8-10.8) K/uL RBC 4.26 (3.80-5.20) Mil/uL Hgb 12.8 (11.0-16.0) g/dL Hct 39.1 (34.0-47.0) % MCV 92.0 (81.0-99.0) fL MCH 30.0 (27.0-31.0) pg MCHC 32.6 L (33.0-37.0) g/dL RDW 15.5 H (11.5-14.5) % Plt Count 291 (130-400) K/uL MPV 9.4 (7.2-11.7) fL Neut % (Auto) 83.6 H (50.0-75.0) % Lymph % (Auto) 13.8 L (20.0-40.0) % [place] % (Auto) 2.4 (0.0-10.0) % Eos % (Auto) 0.0 (0.0-4.0) % Baso % (Auto) 0.2 (0.0-2.0) % Neut # (Auto) 5.1 (1.8-7.0) K/uL Lymph # (Auto) 0.8 L (1.0-4.3) K/uL [place] # (Auto) 0.1 (0.0-0.8) K/uL Eos # (Auto) 0.0 (0.0-0.7) K/uL Baso # (Auto) 0.0 (0.0-0.2) K/uL ESR (0-20) mm/hr Puncture Site pCO2 (35-45) mm/Hg pO2 (80-100) mm/Hg HCO3 (21-28) mmol/L ABG pH (7.35-7.45) ABG Total CO2 (22-28) mmol/L ABG O2 Saturation (95-98) % ABG Base Excess (-2.0-3.0) mmol/L ABG Hemoglobin (11.7-17.4) g/dL ABG Carboxyhemoglobin (0.5-1.5) % POC ABG HHb (Measured) (0.0-5.0) % ABG Methemoglobin (0.0-3.0) % Cedric Test A-a O2 Difference mm/Hg Respiratory Index Hgb O2 Saturation (95.0-98.0) % Liter Flow Vent Mode FiO2 % Inspiratory BiPAP Expiratory BiPAP Crit Value Called To Crit Value Called By Crit Value Read Back Blood Gas Notified Time Sodium 139 (132-148) mmol/L Potassium 5.1 (3.6-5.2) mmol/L Chloride 108 H (98-107) mmol/L Carbon Dioxide 22 (22-30) mmol/L Anion Gap 14 (10-20) BUN 4 L (7-17) mg/dL Creatinine 0.3 L (0.7-1.2) mg/dL Est GFR ( Amer) > 60 Est GFR (Non-Af Amer) > 60 Random Glucose 128 H (65-105) mg/dL Calcium 8.1 L (8.6-10.4) mg/dl Phosphorus 3.6 (2.5-4.5) mg/dL Magnesium 1.6 (1.6-2.3) mg/dL Total Bilirubin 0.5 (0.2-1.3) mg/dL AST 47 H D (14-36) U/L ALT 35 (9-52) U/L Alkaline Phosphatase 159 H D (38-126) U/L C-React Prot High Sens > 15.00 H (1.00-3.00) mg/L NT-Pro-B Natriuret Pep 6300 H (0-900) pg/mL Total Protein 6.6 (6.3-8.3) g/dL Albumin 2.9 L (3.5-5.0) g/dL Globulin 3.8 (2.2-3.9) gm/dL Albumin/Globulin Ratio 0.8 L (1.0-2.1) 06/22/17 06/21/17 Range/Units 05:06 19:30 WBC (4.8-10.8) K/uL RBC (3.80-5.20) Mil/uL Hgb (11.0-16.0) g/dL Hct (34.0-47.0) % MCV (81.0-99.0) fL MCH (27.0-31.0) pg MCHC (33.0-37.0) g/dL RDW (11.5-14.5) % Plt Count (130-400) K/uL MPV (7.2-11.7) fL Neut % (Auto) (50.0-75.0) % Lymph % (Auto) (20.0-40.0) % [place] % (Auto) (0.0-10.0) % Eos % (Auto) (0.0-4.0) % Baso % (Auto) (0.0-2.0) % Neut # (Auto) (1.8-7.0) K/uL Lymph # (Auto) (1.0-4.3) K/uL [place] # (Auto) (0.0-0.8) K/uL Eos # (Auto) (0.0-0.7) K/uL Baso # (Auto) (0.0-0.2) K/uL ESR (0-20) mm/hr Puncture Site Rr Lra pCO2 48 H 36 (35-45) mm/Hg pO2 51 L 37 L* (80-100) mm/Hg HCO3 21.7 23.2 (21-28) mmol/L ABG pH 7.29 L 7.41 (7.35-7.45) ABG Total CO2 24.6 23.9 (22-28) mmol/L ABG O2 Saturation 87.6 L 76.6 L (95-98) % ABG Base Excess -3.8 L -1.5 (-2.0-3.0) mmol/L ABG Hemoglobin 13.0 11.9 (11.7-17.4) g/dL ABG Carboxyhemoglobin 1.6 H 1.5 (0.5-1.5) % POC ABG HHb (Measured) 12.1 H 22.9 H (0.0-5.0) % ABG Methemoglobin 1.0 0.6 (0.0-3.0) % Cedric Test Pos Na A-a O2 Difference 602.0 346.0 mm/Hg Respiratory Index 11.8 9.4 Hgb O2 Saturation 85.3 L 75.0 L (95.0-98.0) % Liter Flow 5.0 Vent Mode Bipap FiO2 100.0 60.0 % Inspiratory BiPAP 14 Expiratory BiPAP 6 Crit Value Called To Alejandro haynes Crit Value Called By Ana Crit Value Read Back Y Blood Gas Notified Time 1932 Sodium (132-148) mmol/L Potassium (3.6-5.2) mmol/L Chloride (98-107) mmol/L Carbon Dioxide (22-30) mmol/L Anion Gap (10-20) BUN (7-17) mg/dL Creatinine (0.7-1.2) mg/dL Est GFR ( Amer) Est GFR (Non-Af Amer) Random Glucose (65-105) mg/dL Calcium (8.6-10.4) mg/dl Phosphorus (2.5-4.5) mg/dL Magnesium (1.6-2.3) mg/dL Total Bilirubin (0.2-1.3) mg/dL AST (14-36) U/L ALT (9-52) U/L Alkaline Phosphatase (38-126) U/L C-React Prot High Sens (1.00-3.00) mg/L NT-Pro-B Natriuret Pep (0-900) pg/mL Total Protein (6.3-8.3) g/dL Albumin (3.5-5.0) g/dL Globulin (2.2-3.9) gm/dL Albumin/Globulin Ratio (1.0-2.1) Laboratory Results - last 24 hr 06/21/17 06/22/17 06/22/17 19:30 05:06 06:17 WBC RBC Hgb Hct MCV MCH MCHC RDW Plt Count MPV Neut % (Auto) Lymph % (Auto) [place] % (Auto) Eos % (Auto) Baso % (Auto) Neut # (Auto) Lymph # (Auto) [place] # (Auto) Eos # (Auto) Baso # (Auto) ESR Puncture Site Lra Rr pCO2 36 48 H pO2 37 L* 51 L HCO3 23.2 21.7 ABG pH 7.41 7.29 L ABG Total CO2 23.9 24.6 ABG O2 Saturation 76.6 L 87.6 L ABG Base Excess -1.5 -3.8 L ABG Hemoglobin 11.9 13.0 ABG Carboxyhemoglobin 1.5 1.6 H POC ABG HHb (Measured) 22.9 H 12.1 H ABG Methemoglobin 0.6 1.0 Cedric Test Na Pos A-a O2 Difference 346.0 602.0 Respiratory Index 9.4 11.8 Hgb O2 Saturation 75.0 L 85.3 L Liter Flow 5.0 Vent Mode Bipap FiO2 60.0 100.0 Inspiratory BiPAP 14 Expiratory BiPAP 6 Crit Value Called To Alejandro haynes Crit Value Called By Ana Crit Value Read Back Y Blood Gas Notified Time 1932 Sodium 139 Potassium 5.1 Chloride 108 H Carbon Dioxide 22 Anion Gap 14 BUN 4 L Creatinine 0.3 L Est GFR ( Amer) > 60 Est GFR (Non-Af Amer) > 60 Random Glucose 128 H Calcium 8.1 L Phosphorus 3.6 Magnesium 1.6 Total Bilirubin 0.5 AST 47 H D ALT 35 Alkaline Phosphatase 159 H D C-React Prot High Sens NT-Pro-B Natriuret Pep 6300 H Total Protein 6.6 Albumin 2.9 L Globulin 3.8 Albumin/Globulin Ratio 0.8 L 06/22/17 06/22/17 06/22/17 06:17 06:18 11:53 WBC 6.1 RBC 4.26 Hgb 12.8 Hct 39.1 MCV 92.0 MCH 30.0 MCHC 32.6 L RDW 15.5 H Plt Count 291 MPV 9.4 Neut % (Auto) 83.6 H Lymph % (Auto) 13.8 L [place] % (Auto) 2.4 Eos % (Auto) 0.0 Baso % (Auto) 0.2 Neut # (Auto) 5.1 Lymph # (Auto) 0.8 L [place] # (Auto) 0.1 Eos # (Auto) 0.0 Baso # (Auto) 0.0 ESR 45 H Puncture Site pCO2 pO2 HCO3 ABG pH ABG Total CO2 ABG O2 Saturation ABG Base Excess ABG Hemoglobin ABG Carboxyhemoglobin POC ABG HHb (Measured) ABG Methemoglobin Cedric Test A-a O2 Difference Respiratory Index Hgb O2 Saturation Liter Flow Vent Mode FiO2 Inspiratory BiPAP Expiratory BiPAP Crit Value Called To Crit Value Called By Crit Value Read Back Blood Gas Notified Time Sodium Potassium Chloride Carbon Dioxide Anion Gap BUN Creatinine Est GFR ( Amer) Est GFR (Non-Af Amer) Random Glucose Calcium Phosphorus Magnesium Total Bilirubin AST ALT Alkaline Phosphatase C-React Prot High Sens > 15.00 H NT-Pro-B Natriuret Pep Total Protein Albumin Globulin Albumin/Globulin Ratio 06/22/17 06/22/17 11:58 11:58 WBC RBC Hgb Hct MCV MCH MCHC RDW Plt Count MPV Neut % (Auto) Lymph % (Auto) [place] % (Auto) Eos % (Auto) Baso % (Auto) Neut # (Auto) Lymph # (Auto) [place] # (Auto) Eos # (Auto) Baso # (Auto) ESR Puncture Site pCO2 pO2 HCO3 ABG pH ABG Total CO2 ABG O2 Saturation ABG Base Excess ABG Hemoglobin ABG Carboxyhemoglobin POC ABG HHb (Measured) ABG Methemoglobin Cedric Test A-a O2 Difference Respiratory Index Hgb O2 Saturation Liter Flow Vent Mode FiO2 Inspiratory BiPAP Expiratory BiPAP Crit Value Called To Crit Value Called By Crit Value Read Back Blood Gas Notified Time Sodium Potassium Chloride Carbon Dioxide Anion Gap BUN Creatinine Est GFR ( Amer) Est GFR (Non-Af Amer) Random Glucose Calcium Phosphorus Magnesium Total Bilirubin AST ALT Alkaline Phosphatase C-React Prot High Sens > 15.00 H NT-Pro-B Natriuret Pep 7280 H Total Protein Albumin Globulin Albumin/Globulin Ratio Critical Care Progress Note - Nutrition Nutrition: Nutrition Category Date Time Status Heart Healthy Diet [DIET] Diets 06/21/17 Lunch Active Attending/Attestation - Attestation I have personally seen and examined this patient.: Yes I have fully participated in the care of the patient.: Yes I have reviewed all pertinent clinical information: Yes Notes (Text): 06/22/17 18:44 Today: June The Patient was seen and examined at the bedside, Medical records reviewed, and management issues were discussed and formulated with the house staff. I have reviewed all the relevant clinical, laboratory, hemodynamic, radiographic data and medications Events reviewed Pain issues, skin care, head of the bed elevation, glycemic control were addressed. Agree with above resident's assessment and treatment plans of care as transcribed in Dr. Carrasco note.
[2017-06-22] MEDS: Sodium Chloride 0.9% 1,000 ML IV SCH (23:05)
[2017-06-23] MEDS: Albuterol-Ipratrop 3 mg / 0.5 (3 ml) UD INH SCH ×4 (01:48→21:01)
[2017-06-23 06:23] LABS: ABG ALLEN TEST POS; ARTERIAL BLOOD GAS HEMOGLOBIN 11.6 g/dL (11.7-17.4); ARTERIAL BLOOD GAS PCO2 47 mm/Hg (35-45); ARTERIAL BLOOD GAS PH 7.37 (7.35-7.45); ARTERIAL BLOOD GAS PO2 71 mm/Hg (80-100); ARTERIAL BLOOD GAS TCO2 28.6 mmol/L (22-28)
[2017-06-23 06:44] LABS: BASO % 0.1 % (0.0-2.0); HEMOGLOBIN 11.6 g/dL (11.0-16.0); LYMPH # 0.7 K/uL (1.0-4.3); LYMPH % 11.8 % (20.0-40.0); MEAN CELL VOLUME 91.2 fL (81.0-99.0); MEAN CORPUSCULAR HGB CONC 33.9 g/dL (33.0-37.0); MEAN PLATELET VOLUME 9.2 fL (7.2-11.7); MONO # 0.2 K/uL (0.0-0.8); MONO % 2.8 % (0.0-10.0); NEUT # 5.1 K/uL (1.8-7.0); NEUT % 85.3 % (50.0-75.0); RBC 3.75 Mil/uL (3.80-5.20); RED CELL DISTRIBUTION WIDTH 15.6 % (11.5-14.5)
[2017-06-23 07:05] LABS: ALB/GLOB RATIO 0.8 (1.0-2.1); ALBUMIN 2.6 g/dL (3.5-5.0); ALT/SGPT 23 U/L (9-52); AST/SGOT 22 U/L (14-36); BLOOD UREA NITROGEN 6 mg/dL (7-17); CALCIUM 7.9 mg/dl (8.6-10.4); GFR AFRICAN-AMERICAN > 60; GFR NON-AFRICAN AMERICAN > 60; MAGNESIUM 1.6 mg/dL (1.6-2.3)
[2017-06-23] MEDS: Pantoprazole 40 mg EC Tab PO SCH (09:02)
[2017-06-23] MEDS: MethylPREDNISolone 40 mg Vial IVP SCH ×2 (09:02→21:02)
--- NOTE | 2017-06-23 13:04 | CP.CCUPN ---
<LunaDanteTurton - Last Filed: 06/23/17 13:18> CCU Subjective - Physician Review Events Since Last Encounter (Free Text): 06/23/17 13:05 Per nursing no acute events overnight. Subjective (Free Text): 06/22/17 18:02 Patient seen and examined at bedside. Patient denies any complaints at this time. Critical Care Time Spent (in minutes): 45 CCU Objective - Vital Signs / Intake & Output Vital Signs (Last 4 hours): Vital Signs Pulse Resp BP Pulse Ox 06/23/17 11:00 103 H 21 99 06/23/17 10:57 99 H 20 103/65 96 06/23/17 10:50 98 H 19 98 06/23/17 10:40 103 H 16 94 L 06/23/17 10:30 106 H 17 96 06/23/17 10:20 110 H 14 95 06/23/17 10:10 98 H 29 H 100 06/23/17 10:00 92 H 22 99 06/23/17 09:57 94 H 24 107/67 98 06/23/17 09:50 103 H 23 99 06/23/17 09:40 104 H 21 96 06/23/17 09:30 95 H 23 96 06/23/17 09:20 95 H 25 H 97 06/23/17 09:10 95 H 21 97 Intake and Output (Last 8hrs): Intake & Output 06/22/17 06/23/17 06/23/17 22:59 06:59 14:59 Intake Total 660 480 400 Output Total 400 300 900 Balance 260 180 -500 Weight 80 lb 5 oz Intake: Intake, IV Amount 240 240 150 Right Forearm 240 240 150 Oral 420 240 250 Output: Urine 400 300 900 Urine, Voided 400 300 900 Other: # Voids Urine, Voided 2 1 3 - Physical Exam Head: Positive for: Atraumatic, Normocephalic Pupils: Positive for: PERRL Extroacular Muscles: Positive for: EOMI Conjunctiva: Positive for: Normal Mouth: Positive for: Moist Mucous Membranes Respiratory/Chest: Positive for: Clear to Auscultation, Respiratory Distress Cardiovascular: Positive for: Regular Rate and Rhythm, Normal S1, S2 Abdomen: Positive for: Normal Bowel Sounds Upper Extremity: Positive for: Normal Inspection, Other (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 Negative for: Edema Lower Extremity: Positive for: Normal Inspection Skin: Positive for: Warm, Dry, Normal Color Psychiatric: Positive for: Alert Other physical findings (Free Text): chronic changes from the severe r.a bilateral hands - Medications Active Medications: Active Medications Generic Name Dose Route Start Last Admin Trade Name Freq PRN Reason Stop Dose Admin Albuterol/Ipratropium 3 ml 06/22/17 02:00 06/23/17 07:31 Duoneb 3 Mg/0.5 Mg (3 Ml) Ud INH 3 ml RQ6 MEHRDAD Administration Apixaban 5 mg 06/21/17 12:30 06/23/17 09:02 Eliquis PO 5 mg BID MEHRDAD Administration Aspirin 325 mg 06/21/17 10:00 06/23/17 09:02 Aspirin PO 325 mg DAILY MEHRDAD Administration Methylprednisolone 20 mg 06/21/17 22:00 06/23/17 09:02 Solu-Medrol IVP 20 mg Q12 MEHRDAD Administration Pantoprazole Sodium 40 mg 06/21/17 10:00 06/23/17 09:02 Protonix Ec Tab PO 40 mg DAILY MHERDAD Administration Pneumococcal Polyvalent Vaccine 0.5 ml 06/24/17 08:30 Pneumovax 23 Vaccine IM 06/24/17 08:31 .ONCE ONE - Patient Studies Lab Studies: Microbiology Studies 06/20/17 22:21 MRSA Culture (Admit) - Final Nose MRSA DETECTED Lab Studies 06/23/17 06/23/17 06/23/17 Range/Units 06:32 06:30 06:17 WBC 6.0 (4.8-10.8) K/uL RBC 3.75 L (3.80-5.20) Mil/uL Hgb 11.6 (11.0-16.0) g/dL Hct 34.2 (34.0-47.0) % MCV 91.2 (81.0-99.0) fL MCH 31.0 (27.0-31.0) pg MCHC 33.9 (33.0-37.0) g/dL RDW 15.6 H (11.5-14.5) % Plt Count 241 (130-400) K/uL MPV 9.2 (7.2-11.7) fL Neut % (Auto) 85.3 H (50.0-75.0) % Lymph % (Auto) 11.8 L (20.0-40.0) % [place] % (Auto) 2.8 (0.0-10.0) % Eos % (Auto) 0.0 (0.0-4.0) % Baso % (Auto) 0.1 (0.0-2.0) % Neut # (Auto) 5.1 (1.8-7.0) K/uL Lymph # (Auto) 0.7 L (1.0-4.3) K/uL [place] # (Auto) 0.2 (0.0-0.8) K/uL Eos # (Auto) 0.0 (0.0-0.7) K/uL Baso # (Auto) 0.0 (0.0-0.2) K/uL Puncture Site Lr pCO2 47 H (35-45) mm/Hg pO2 71 L (80-100) mm/Hg HCO3 26.0 (21-28) mmol/L ABG pH 7.37 (7.35-7.45) ABG Total CO2 28.6 H (22-28) mmol/L ABG O2 Saturation 97.0 (95-98) % ABG Base Excess 1.4 (-2.0-3.0) mmol/L ABG Hemoglobin 11.6 L (11.7-17.4) g/dL ABG Carboxyhemoglobin 1.4 (0.5-1.5) % POC ABG HHb (Measured) 2.9 (0.0-5.0) % ABG Methemoglobin 1.3 (0.0-3.0) % Cedric Test Pos A-a O2 Difference 583.0 mm/Hg Respiratory Index 8.2 Hgb O2 Saturation 94.4 L (95.0-98.0) % FiO2 100.0 % Sodium 138 (132-148) mmol/L Potassium 3.9 (3.6-5.2) mmol/L Chloride 105 (98-107) mmol/L Carbon Dioxide 27 (22-30) mmol/L Anion Gap 10 (10-20) BUN 6 L (7-17) mg/dL Creatinine 0.3 L (0.7-1.2) mg/dL Est GFR ( Amer) > 60 Est GFR (Non-Af Amer) > 60 Random Glucose 128 H (65-105) mg/dL Calcium 7.9 L (8.6-10.4) mg/dl Phosphorus 3.3 (2.5-4.5) mg/dL Magnesium 1.6 (1.6-2.3) mg/dL Total Bilirubin 0.3 (0.2-1.3) mg/dL AST 22 (14-36) U/L ALT 23 (9-52) U/L Alkaline Phosphatase 108 (38-126) U/L Total Protein 5.9 L (6.3-8.3) g/dL Albumin 2.6 L (3.5-5.0) g/dL Globulin 3.3 (2.2-3.9) gm/dL Albumin/Globulin Ratio 0.8 L (1.0-2.1) Laboratory Results - last 24 hr 06/23/17 06/23/17 06/23/17 06:17 06:30 06:32 WBC 6.0 RBC 3.75 L Hgb 11.6 Hct 34.2 MCV 91.2 MCH 31.0 MCHC 33.9 RDW 15.6 H Plt Count 241 MPV 9.2 Neut % (Auto) 85.3 H Lymph % (Auto) 11.8 L [place] % (Auto) 2.8 Eos % (Auto) 0.0 Baso % (Auto) 0.1 Neut # (Auto) 5.1 Lymph # (Auto) 0.7 L [place] # (Auto) 0.2 Eos # (Auto) 0.0 Baso # (Auto) 0.0 Puncture Site Lr pCO2 47 H pO2 71 L HCO3 26.0 ABG pH 7.37 ABG Total CO2 28.6 H ABG O2 Saturation 97.0 ABG Base Excess 1.4 ABG Hemoglobin 11.6 L ABG Carboxyhemoglobin 1.4 POC ABG HHb (Measured) 2.9 ABG Methemoglobin 1.3 Cedric Test Pos A-a O2 Difference 583.0 Respiratory Index 8.2 Hgb O2 Saturation 94.4 L FiO2 100.0 Sodium 138 Potassium 3.9 Chloride 105 Carbon Dioxide 27 Anion Gap 10 BUN 6 L Creatinine 0.3 L Est GFR ( Amer) > 60 Est GFR (Non-Af Amer) > 60 Random Glucose 128 H Calcium 7.9 L Phosphorus 3.3 Magnesium 1.6 Total Bilirubin 0.3 AST 22 ALT 23 Alkaline Phosphatase 108 Total Protein 5.9 L Albumin 2.6 L Globulin 3.3 Albumin/Globulin Ratio 0.8 L Critical Care Progress Note - Nutrition Nutrition: Nutrition Category Date Time Status Heart Healthy Diet [DIET] Diets 06/21/17 Lunch Active Assessment/Plan - Assessment and Plan (Free Text) Assessment: 57 year old female with a past medical history of rheumatoid arthritis, immobility for one year, and a previous PE who is day one s/p EKOS thrombolysis for right PE with systemic heparin and localized tPA. Plan: Neurology -No active problem. Cardiology: Pulmonary embolisim (s/p thrombolysis, cardiac cath) -Continue Eliquis 5mg PO BID. -Repeat ECho in a couple of days. -Aspirin 325mg PO Daily -Lung V/Q scan showed lower probability of P.E( taken s/p thrombolysis) -Venous doppler of lower extremity ordered (Looking for origin of P.E.). Will f/ u with results. Pulmonary: Pulmonary Hypertension -Per Pulmonary will require dual therapy Arun Ward. Will f/u with Pulmonary for rec's. -IV Solumedrol 20mg q12 IVP. -Continue Duonebs 3ml INH rq6. -Continue High flow nc or Bipap PRN. Goal is to maintain spO2 above 92 %. Integumentary: Sacral ulcers -Management per wound care consult. PPX -Protonix 40mg PO Daily <Mary Jane Lei - Last Filed: 06/23/17 17:49> CCU Objective - Vital Signs / Intake & Output Vital Signs (Last 4 hours): Vital Signs Temp Pulse Resp BP Pulse Ox 06/23/17 17:00 103 H 26 H 97 06/23/17 16:57 103 H 29 H 109/70 95 06/23/17 16:50 106 H 29 H 95 06/23/17 16:40 102 H 26 H 99 06/23/17 16:30 108 H 28 H 96 06/23/17 16:20 109 H 28 H 95 06/23/17 16:10 107 H 27 H 94 L 06/23/17 16:00 98.7 F 108 H 25 H 97 06/23/17 15:57 107 H 28 H 108/67 98 06/23/17 15:50 111 H 22 99 06/23/17 15:40 109 H 27 H 98 06/23/17 15:30 107 H 24 97 06/23/17 15:20 109 H 27 H 100 06/23/17 15:10 105 H 27 H 94 L 06/23/17 15:00 110 H 29 H 99 06/23/17 14:57 111 H 24 113/71 98 06/23/17 14:50 109 H 28 H 100 06/23/17 14:40 107 H 26 H 100 06/23/17 14:30 112 H 29 H 95 06/23/17 14:20 107 H 20 100 06/23/17 14:10 109 H 30 H 98 06/23/17 14:00 112 H 26 H 97 06/23/17 13:57 110 H 20 115/83 96 06/23/17 13:50 110 H 30 H 93 L 06/23/17 13:40 112 H 18 93 L Intake and Output (Last 8hrs): Intake & Output 06/23/17 06/23/17 06/23/17 06:59 14:59 22:59 Intake Total 480 500 150 Output Total 300 1025 Balance 180 -525 150 Weight 80 lb 5 oz Intake: Intake, IV Amount 240 150 Right Forearm 240 150 Oral 240 350 150 Output: Urine 300 1025 Urine, Voided 300 1025 Other: # Voids Urine, Voided 1 3 - Medications Active Medications: Active Medications Generic Name Dose Route Start Last Admin Trade Name Freq PRN Reason Stop Dose Admin Albuterol/Ipratropium 3 ml 06/22/17 02:00 06/23/17 13:05 Duoneb 3 Mg/0.5 Mg (3 Ml) Ud INH 3 ml RQ6 MEHRDAD Administration Apixaban 5 mg 06/21/17 12:30 06/23/17 17:18 Eliquis PO 5 mg BID MEHRDAD Administration Aspirin 325 mg 06/21/17 10:00 06/23/17 09:02 Aspirin PO 325 mg DAILY MEHRDAD Administration Methylprednisolone 20 mg 06/21/17 22:00 06/23/17 09:02 Solu-Medrol IVP 20 mg Q12 MEHRDAD Administration Pantoprazole Sodium 40 mg 06/21/17 10:00 06/23/17 09:02 Protonix Ec Tab PO 40 mg DAILY MEHRDAD Administration Pneumococcal Polyvalent Vaccine 0.5 ml 06/24/17 08:30 Pneumovax 23 Vaccine IM 06/24/17 08:31 .ONCE ONE - Patient Studies Lab Studies: Lab Studies 06/23/17 06/23/17 06/23/17 Range/Units 06:32 06:30 06:17 WBC 6.0 (4.8-10.8) K/uL RBC 3.75 L (3.80-5.20) Mil/uL Hgb 11.6 (11.0-16.0) g/dL Hct 34.2 (34.0-47.0) % MCV 91.2 (81.0-99.0) fL MCH 31.0 (27.0-31.0) pg MCHC 33.9 (33.0-37.0) g/dL RDW 15.6 H (11.5-14.5) % Plt Count 241 (130-400) K/uL MPV 9.2 (7.2-11.7) fL Neut % (Auto) 85.3 H (50.0-75.0) % Lymph % (Auto) 11.8 L (20.0-40.0) % [place] % (Auto) 2.8 (0.0-10.0) % Eos % (Auto) 0.0 (0.0-4.0) % Baso % (Auto) 0.1 (0.0-2.0) % Neut # (Auto) 5.1 (1.8-7.0) K/uL Lymph # (Auto) 0.7 L (1.0-4.3) K/uL [place] # (Auto) 0.2 (0.0-0.8) K/uL Eos # (Auto) 0.0 (0.0-0.7) K/uL Baso # (Auto) 0.0 (0.0-0.2) K/uL Puncture Site Lr pCO2 47 H (35-45) mm/Hg pO2 71 L (80-100) mm/Hg HCO3 26.0 (21-28) mmol/L ABG pH 7.37 (7.35-7.45) ABG Total CO2 28.6 H (22-28) mmol/L ABG O2 Saturation 97.0 (95-98) % ABG Base Excess 1.4 (-2.0-3.0) mmol/L ABG Hemoglobin 11.6 L (11.7-17.4) g/dL ABG Carboxyhemoglobin 1.4 (0.5-1.5) % POC ABG HHb (Measured) 2.9 (0.0-5.0) % ABG Methemoglobin 1.3 (0.0-3.0) % Cedric Test Pos A-a O2 Difference 583.0 mm/Hg Respiratory Index 8.2 Hgb O2 Saturation 94.4 L (95.0-98.0) % FiO2 100.0 % Sodium 138 (132-148) mmol/L Potassium 3.9 (3.6-5.2) mmol/L Chloride 105 (98-107) mmol/L Carbon Dioxide 27 (22-30) mmol/L Anion Gap 10 (10-20) BUN 6 L (7-17) mg/dL Creatinine 0.3 L (0.7-1.2) mg/dL Est GFR ( Amer) > 60 Est GFR (Non-Af Amer) > 60 Random Glucose 128 H (65-105) mg/dL Calcium 7.9 L (8.6-10.4) mg/dl Phosphorus 3.3 (2.5-4.5) mg/dL Magnesium 1.6 (1.6-2.3) mg/dL Total Bilirubin 0.3 (0.2-1.3) mg/dL AST 22 (14-36) U/L ALT 23 (9-52) U/L Alkaline Phosphatase 108 (38-126) U/L Total Protein 5.9 L (6.3-8.3) g/dL Albumin 2.6 L (3.5-5.0) g/dL Globulin 3.3 (2.2-3.9) gm/dL Albumin/Globulin Ratio 0.8 L (1.0-2.1) Laboratory Results - last 24 hr 06/23/17 06/23/17 06/23/17 06:17 06:30 06:32 WBC 6.0 RBC 3.75 L Hgb 11.6 Hct 34.2 MCV 91.2 MCH 31.0 MCHC 33.9 RDW 15.6 H Plt Count 241 MPV 9.2 Neut % (Auto) 85.3 H Lymph % (Auto) 11.8 L [place] % (Auto) 2.8 Eos % (Auto) 0.0 Baso % (Auto) 0.1 Neut # (Auto) 5.1 Lymph # (Auto) 0.7 L [place] # (Auto) 0.2 Eos # (Auto) 0.0 Baso # (Auto) 0.0 Puncture Site Lr pCO2 47 H pO2 71 L HCO3 26.0 ABG pH 7.37 ABG Total CO2 28.6 H ABG O2 Saturation 97.0 ABG Base Excess 1.4 ABG Hemoglobin 11.6 L ABG Carboxyhemoglobin 1.4 POC ABG HHb (Measured) 2.9 ABG Methemoglobin 1.3 Cedric Test Pos A-a O2 Difference 583.0 Respiratory Index 8.2 Hgb O2 Saturation 94.4 L FiO2 100.0 Sodium 138 Potassium 3.9 Chloride 105 Carbon Dioxide 27 Anion Gap 10 BUN 6 L Creatinine 0.3 L Est GFR ( Amer) > 60 Est GFR (Non-Af Amer) > 60 Random Glucose 128 H Calcium 7.9 L Phosphorus 3.3 Magnesium 1.6 Total Bilirubin 0.3 AST 22 ALT 23 Alkaline Phosphatase 108 Total Protein 5.9 L Albumin 2.6 L Globulin 3.3 Albumin/Globulin Ratio 0.8 L Critical Care Progress Note - Nutrition Nutrition: Nutrition Category Date Time Status Heart Healthy Diet [DIET] Diets 06/21/17 Lunch Active Assessment/Plan - Assessment and Plan (Free Text) Plan: The Patient was seen and examined at the bedside. Events reviewed. -vitals reviewed medications reconciled -allergied reviewed -cultures reviewed -Patient remains hemodynamically stable. -Patient remains bedbound and has a debilitating RA. -obtain LE dopplers, if floating clott place IVC filter -continue supplementation of oxygen to keep Spo2 >92 -PT/OT, oob to chair - Date & Time Date: 06/23/17 Time: 14:00
[2017-06-24] MEDS: Albuterol-Ipratrop 3 mg / 0.5 (3 ml) UD INH SCH ×4 (01:10→19:53)
[2017-06-24 06:27] LABS: BASO % 0.3 % (0.0-2.0); HEMOGLOBIN 13.1 g/dL (11.0-16.0); LYMPH # 1.4 K/uL (1.0-4.3); LYMPH % 16.5 % (20.0-40.0); MEAN CELL VOLUME 91.5 fL (81.0-99.0); MEAN CORPUSCULAR HEMOGLOBIN 30.4 pg (27.0-31.0); MEAN CORPUSCULAR HGB CONC 33.2 g/dL (33.0-37.0); MEAN PLATELET VOLUME 9.1 fL (7.2-11.7); MONO # 0.3 K/uL (0.0-0.8); MONO % 3.2 % (0.0-10.0); NEUT # 6.9 K/uL (1.8-7.0); RBC 4.32 Mil/uL (3.80-5.20); RED CELL DISTRIBUTION WIDTH 15.6 % (11.5-14.5); WHITE BLOOD COUNT 8.7 K/uL (4.8-10.8)
[2017-06-24 07:06] LABS: ALB/GLOB RATIO 0.8 (1.0-2.1); ALBUMIN 2.8 g/dL (3.5-5.0); ALT/SGPT 18 U/L (9-52); AST/SGOT 23 U/L (14-36); BLOOD UREA NITROGEN 11 mg/dL (7-17); CALCIUM 8.5 mg/dl (8.6-10.4); GFR AFRICAN-AMERICAN > 60; GFR NON-AFRICAN AMERICAN > 60; MAGNESIUM 1.8 mg/dL (1.6-2.3)
[2017-06-24] MEDS ORDERED: Pneumococcal 23-Valent Vaccine IM ONE (08:30)
[2017-06-24] MEDS: MethylPREDNISolone 40 mg Vial IVP SCH ×2 (09:08→21:05)
[2017-06-24] MEDS: Pantoprazole 40 mg EC Tab PO SCH (09:08)
--- NOTE | 2017-06-24 12:39 | CP.CCUPN ---
CCU Subjective - Physician Review Subjective (Free Text): Patient admitted to ICu for PE requiring high FiO2 reuqirement CCU Objective - Vital Signs / Intake & Output Intake and Output (Last 8hrs): Intake & Output 06/23/17 06/24/17 06/24/17 22:59 06:59 14:59 Intake Total 390 120 0 Output Total 100 300 Balance 290 -180 0 Weight 80 lb 6 oz Intake: Oral 390 120 0 Output: Urine 100 300 Urine, Voided 100 300 Other: # Voids Urine, Voided 1 - Physical Exam Head: Positive for: Atraumatic, Normocephalic Pupils: Positive for: PERRL Extroacular Muscles: Positive for: EOMI Conjunctiva: Positive for: Normal Mouth: Positive for: Moist Mucous Membranes Respiratory/Chest: Positive for: Clear to Auscultation, Respiratory Distress Cardiovascular: Positive for: Regular Rate and Rhythm, Normal S1, S2 Abdomen: Positive for: Normal Bowel Sounds Upper Extremity: Positive for: Normal Inspection, Other (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 Negative for: Edema Lower Extremity: Positive for: Normal Inspection Skin: Positive for: Warm, Dry, Normal Color Psychiatric: Positive for: Alert - Medications Active Medications: Active Medications Generic Name Dose Route Start Last Admin Trade Name Freq PRN Reason Stop Dose Admin Albuterol/Ipratropium 3 ml 06/22/17 02:00 06/24/17 07:33 Duoneb 3 Mg/0.5 Mg (3 Ml) Ud INH 3 ml RQ6 MEHRDAD Administration Apixaban 5 mg 06/21/17 12:30 06/24/17 09:08 Eliquis PO 5 mg BID MEHRDAD Administration Aspirin 325 mg 06/21/17 10:00 06/23/17 09:02 Aspirin PO 325 mg DAILY MEHRDAD Administration Methylprednisolone 20 mg 06/21/17 22:00 06/24/17 09:08 Solu-Medrol IVP 20 mg Q12 MEHRDAD Administration Pantoprazole Sodium 40 mg 06/21/17 10:00 06/24/17 09:08 Protonix Ec Tab PO 40 mg DAILY MEHRDAD Administration - Patient Studies Lab Studies: Lab Studies 06/24/17 06/24/17 Range/Units 06:22 06:21 WBC 8.7 (4.8-10.8) K/uL RBC 4.32 (3.80-5.20) Mil/uL Hgb 13.1 (11.0-16.0) g/dL Hct 39.5 (34.0-47.0) % MCV 91.5 (81.0-99.0) fL MCH 30.4 (27.0-31.0) pg MCHC 33.2 (33.0-37.0) g/dL RDW 15.6 H (11.5-14.5) % Plt Count 250 (130-400) K/uL MPV 9.1 (7.2-11.7) fL Neut % (Auto) 80.0 H (50.0-75.0) % Lymph % (Auto) 16.5 L (20.0-40.0) % [place] % (Auto) 3.2 (0.0-10.0) % Eos % (Auto) 0.0 (0.0-4.0) % Baso % (Auto) 0.3 (0.0-2.0) % Neut # (Auto) 6.9 (1.8-7.0) K/uL Lymph # (Auto) 1.4 (1.0-4.3) K/uL [place] # (Auto) 0.3 (0.0-0.8) K/uL Eos # (Auto) 0.0 (0.0-0.7) K/uL Baso # (Auto) 0.0 (0.0-0.2) K/uL Sodium 137 (132-148) mmol/L Potassium 4.7 (3.6-5.2) mmol/L Chloride 102 (98-107) mmol/L Carbon Dioxide 28 (22-30) mmol/L Anion Gap 11 (10-20) BUN 11 (7-17) mg/dL Creatinine 0.3 L (0.7-1.2) mg/dL Est GFR ( Amer) > 60 Est GFR (Non-Af Amer) > 60 Random Glucose 110 H (65-105) mg/dL Calcium 8.5 L (8.6-10.4) mg/dl Phosphorus 2.8 (2.5-4.5) mg/dL Magnesium 1.8 (1.6-2.3) mg/dL Total Bilirubin 0.4 (0.2-1.3) mg/dL AST 23 (14-36) U/L ALT 18 (9-52) U/L Alkaline Phosphatase 105 (38-126) U/L Total Protein 6.3 (6.3-8.3) g/dL Albumin 2.8 L (3.5-5.0) g/dL Globulin 3.5 (2.2-3.9) gm/dL Albumin/Globulin Ratio 0.8 L (1.0-2.1) Laboratory Results - last 24 hr 06/24/17 06/24/17 06:21 06:22 WBC 8.7 RBC 4.32 Hgb 13.1 Hct 39.5 MCV 91.5 MCH 30.4 MCHC 33.2 RDW 15.6 H Plt Count 250 MPV 9.1 Neut % (Auto) 80.0 H Lymph % (Auto) 16.5 L [place] % (Auto) 3.2 Eos % (Auto) 0.0 Baso % (Auto) 0.3 Neut # (Auto) 6.9 Lymph # (Auto) 1.4 [place] # (Auto) 0.3 Eos # (Auto) 0.0 Baso # (Auto) 0.0 Sodium 137 Potassium 4.7 Chloride 102 Carbon Dioxide 28 Anion Gap 11 BUN 11 Creatinine 0.3 L Est GFR ( Amer) > 60 Est GFR (Non-Af Amer) > 60 Random Glucose 110 H Calcium 8.5 L Phosphorus 2.8 Magnesium 1.8 Total Bilirubin 0.4 AST 23 ALT 18 Alkaline Phosphatase 105 Total Protein 6.3 Albumin 2.8 L Globulin 3.5 Albumin/Globulin Ratio 0.8 L Critical Care Progress Note - Nutrition Nutrition: Nutrition Category Date Time Status Heart Healthy Diet [DIET] Diets 06/21/17 Lunch Active Assessment/Plan - Assessment and Plan (Free Text) Plan: 57 year old female with a past medical history of rheumatoid arthritis, immobility for one year, and a previous PE presents to [facility] with dx of PE -Hypoxic respiratory failure: continue oxugen supplementation -Cardiology: Pulmonary embolisim (s/p thrombolysis, cardiac cath) -Continue Eliquis 5mg PO BID. -continue current management -Pulmonary: Pulmonary Hypertension 2nd multiple thromboembolism -Continue Duonebs 3ml INH rq6. -Continue High flow nc or Bipap PRN. Goal is to maintain spO2 above 92 %. -Integumentary: Sacral ulcers -Management per wound care consult. -supplemental MVI/vitamin C and zinc sulfate -constipatoin: dulcolax/colace senna -Patient's oxygen requirement still 100% and will benefit from continued ICu monitoring - Date & Time Date: 06/24/17 Time: 12:39
[2017-06-25] MEDS: Albuterol-Ipratrop 3 mg / 0.5 (3 ml) UD INH SCH ×4 (02:13→19:55)
[2017-06-25] MEDS: Pantoprazole 40 mg EC Tab PO SCH (09:42)
[2017-06-25] MEDS: MethylPREDNISolone 40 mg Vial IVP SCH ×2 (09:42→23:15)
[2017-06-26] MEDS: Albuterol-Ipratrop 3 mg / 0.5 (3 ml) UD INH SCH ×4 (01:54→19:59)
--- NOTE | 2017-06-26 08:03 | CP.PCM.PN ---
Subjective - Date & Time of Evaluation Date of Evaluation: 06/26/17 Time of Evaluation: 07:30 - Subjective Subjective: Cardiology Progress Note for Dr. Logan Patient seen and examined at bedside. Patient in no apparent respiratory distress; denies chest pain, palpitations, or dyspnea. Nurse reports patient is short of breath while eating foods. Objective - Vital Signs/Intake and Output Vital Signs (last 24 hours): Temp Pulse Resp BP Pulse Ox 98 F 81 23 97/65 L 98 06/26/17 04:00 06/26/17 04:00 06/26/17 07:16 06/26/17 04:00 06/26/17 04:00 Intake and Output: 06/26/17 06/26/17 06:59 18:59 Intake Total 250 Output Total 600 Balance -350 - Medications Medications: Current Medications Albuterol/Ipratropium (Duoneb 3 Mg/0.5 Mg (3 Ml) Ud) 3 ml INH RQ6 [facility] Last Admin: 06/26/17 07:15 Dose: 3 ml Apixaban (Eliquis) 5 mg PO BID [facility] Last Admin: 06/25/17 17:06 Dose: 5 mg Aspirin (Aspirin) 325 mg PO DAILY [facility] Last Admin: 06/25/17 09:42 Dose: 325 mg Bisacodyl (Dulcolax) 10 mg [place] HS PRN PRN Reason: Constipation Docusate Sodium (Colace) 100 mg PO TID [facility] Last Admin: 06/25/17 17:06 Dose: 100 mg Methylprednisolone (Solu-Medrol) 20 mg IVP Q12 [facility] Last Admin: 06/25/17 23:15 Dose: 20 mg Pantoprazole Sodium (Protonix Ec Tab) 40 mg PO DAILY [facility] Last Admin: 06/25/17 09:42 Dose: 40 mg Sennosides (Senokot Tab) 8.6 mg PO DAILY [facility] Last Admin: 06/25/17 09:42 Dose: 8.6 mg - Labs Labs: 06/24/17 06:21 06/24/17 06:22 PT 12.1 SECONDS (9.7-12.2) 06/21/17 00:12 INR 1.1 06/21/17 00:12 APTT 105 SECONDS (21-34) H* D 06/21/17 06:24 - Constitutional Appears: Well, Non-toxic - Head Exam Head Exam: ATRAUMATIC, NORMOCEPHALIC - Eye Exam Eye Exam: EOMI, Normal appearance - ENT Exam ENT Exam: Mucous Membranes Moist - Respiratory Exam Respiratory Exam: NORMAL BREATHING PATTERN. absent: Accessory Muscle Use, Rales , Wheezes - Cardiovascular Exam Cardiovascular Exam: RRR, +S1, +S2 - GI/Abdominal Exam GI & Abdominal Exam: Soft, Normal Bowel Sounds - Extremities Exam Extremities Exam: Normal Inspection, Pedal Edema (minimal on right foot) - Neurological Exam Neurological Exam: Alert, Awake - Psychiatric Exam Psychiatric exam: Normal Affect, Normal Mood - Skin Skin Exam: Dry, Intact, Normal Color, Warm Assessment and Plan - Assessment and Plan (Free Text) Assessment: 57 year old female with rheumatoid arthritis, immobility for one year, and history of previous PE who is status post EKOS thrombolysis with catheter directed tPA administration and systemic heparin. 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 1) Continue with Eliquis 5 mg BID 2) Ideally, patient would benefit from Riociguat, given this is best studied in patients with chronic thromboembolic pulmonary hypertension. Pulmonary recommends Uptravi 3) Continue with current medications as per ICU team. 4) Digoxin 0.125 mg Case discussed and reviewed with attending physician, Dr. Logan
[2017-06-26] MEDS: Pantoprazole 40 mg EC Tab PO SCH (09:53)
--- NOTE | 2017-06-26 13:10 | VASCLAB ---
PROCEDURE: Lower Extremity Venous Duplex Exam. HISTORY: h/o of pe PRIORS: None. TECHNIQUE: Bilateral common femoral, femoral, popliteal and posterior tibial, peroneal and great saphenous veins were evaluated. Flow was assessed with color Doppler, compressibility, assessment of phasic flow and augmentation response. Report prepared by Erich Coronel, JESSE, RVT FINDINGS: RIGHT: 1. Common Femoral Vein: 1.1. Compressibility - Fully compressible: Thrombus - None : Flow - Phasic: Augmentation -Normal: Reflux - None. 2. Femoral Vein: 2.1. Compressibility - Fully compressible: Thrombus - None : Flow - Phasic: Augmentation -Normal: Reflux - None. 3. Popliteal Vein: 3.1. Compressibility - Fully compressible: Thrombus - None : Flow - Phasic: Augmentation -Normal: Reflux - None. 4. Posterior Tibial Vein: 4.1. Compressibility - Fully compressible: Thrombus - None: Flow - Phasic: Augmentation -Normal: Reflux - None. 5. Peroneal Vein: 5.1. Compressibility - Fully compressible: Thrombus - None: Flow - Phasic: Augmentation -Normal: Reflux - None. 6. Great Saphenous Vein: 6.1. Compressibility - Fully compressible: Thrombus - None: Flow - Phasic: Augmentation - Normal: Reflux - None. LEFT: 1. Common Femoral Vein: 1.1. Compressibility - Fully compressible: Thrombus - None: Flow - Phasic: Augmentation -Normal: Reflux - None. 2. Femoral Vein: 2.1. Compressibility - Fully compressible: Thrombus - None: Flow - Phasic: Augmentation -Normal: Reflux - None. 3. Popliteal Vein: 3.1. Compressibility - Fully compressible: Thrombus - None : Flow - Phasic: Augmentation -Normal: Reflux - None. 4. Posterior Tibial Vein: 4.1. Compressibility - Fully compressible: Thrombus - None: Flow - Phasic: Augmentation -Normal: Reflux - None. 5. Peroneal Vein: 5.1. Compressibility - Fully compressible: Thrombus - None: Flow - Phasic: Augmentation -Normal: Reflux - None. 6. Great Saphenous Vein: 6.1. Compressibility - Fully compressible: Thrombus - None: Flow - Phasic: Augmentation - Normal: Reflux - None. OTHER FINDINGS: Right: None significant. Left: None significant. IMPRESSION: Right: No evidence of deep or superficial vein thrombosis of the right lower extremity. Normal valve function noted of the right side. Left: No evidence of deep or superficial vein thrombosis of the left lower extremity. Normal valve function noted of the left side.
[2017-06-26] MEDS: Digoxin 125 mcg (0.125 mg) Tab PO SCH (17:10)
[2017-06-27] MEDS: Albuterol-Ipratrop 3 mg / 0.5 (3 ml) UD INH SCH ×4 (01:08→20:31)
--- NOTE | 2017-06-27 09:07 | CP.PCM.PN ---
Subjective - Date & Time of Evaluation Date of Evaluation: 06/27/17 Time of Evaluation: 08:40 - Subjective Subjective: Cardiology Progress Note for Dr. Logan Patient seen and examined at bedside. Patient is very hungry. She requires assistance with eating meals. Patient's breakfast tray is sitting untouched by bedside. Nurse will be reached out to in this regard. Otherwise, patient reports improvement in dyspnea. Patient denies chest pain, palpitations, or weakness. Chart review indicates no events overnight. Objective - Vital Signs/Intake and Output Vital Signs (last 24 hours): Temp Pulse Resp BP Pulse Ox 98.0 F 88 20 93/65 L 100 06/27/17 07:20 06/27/17 07:20 06/27/17 07:20 06/27/17 07:20 06/27/17 07:20 Intake and Output: 06/27/17 06/27/17 06:59 18:59 Output Total 750 Balance -750 - Medications Medications: Current Medications Albuterol/Ipratropium (Duoneb 3 Mg/0.5 Mg (3 Ml) Ud) 3 ml INH RQ6 [facility] Last Admin: 06/27/17 07:15 Dose: 3 ml Apixaban (Eliquis) 5 mg PO BID [facility] Last Admin: 06/26/17 17:10 Dose: 5 mg Aspirin (Aspirin) 325 mg PO DAILY [facility] Last Admin: 06/26/17 09:53 Dose: 325 mg Bisacodyl (Dulcolax) 10 mg [place] HS PRN PRN Reason: Constipation Digoxin (Digoxin) 0.125 mg PO 1800 [facility] Last Admin: 06/26/17 17:10 Dose: 0.125 mg Docusate Sodium (Colace) 100 mg PO TID [facility] Last Admin: 06/26/17 17:10 Dose: 100 mg Methylprednisolone (Solu-Medrol) 20 mg IVP Q12 [facility] Last Admin: 06/26/17 21:23 Dose: 20 mg Pantoprazole Sodium (Protonix Ec Tab) 40 mg PO DAILY [facility] Last Admin: 06/26/17 09:53 Dose: 40 mg Sennosides (Senokot Tab) 8.6 mg PO DAILY [facility] Last Admin: 06/26/17 09:53 Dose: 8.6 mg - Labs Labs: 06/24/17 06:21 06/24/17 06:22 PT 12.1 SECONDS (9.7-12.2) 06/21/17 00:12 INR 1.1 06/21/17 00:12 APTT 105 SECONDS (21-34) H* D 06/21/17 06:24 - Constitutional Appears: Well, Non-toxic - Head Exam Head Exam: ATRAUMATIC, NORMOCEPHALIC - Eye Exam Eye Exam: EOMI, Normal appearance - ENT Exam ENT Exam: Mucous Membranes Moist, Normal Oropharynx - Neck Exam Additional comments: left - Respiratory Exam Respiratory Exam: Clear to Ausculation Bilateral, NORMAL BREATHING PATTERN. absent: Wheezes - Cardiovascular Exam Cardiovascular Exam: REGULAR RHYTHM, +S1, +S2 - GI/Abdominal Exam GI & Abdominal Exam: Soft. absent: Rebound - Extremities Exam Additional comments: SCD present, no pitting edema noted - Neurological Exam Neurological Exam: Alert, Awake, Oriented x3 - Psychiatric Exam Psychiatric exam: Normal Affect, Normal Mood - Skin Skin Exam: Dry, Intact, Normal Color, Warm Assessment and Plan - Assessment and Plan (Free Text) Assessment: 57 year old female with rheumatoid arthritis, immobility for one year, and history of previous PE who is status post EKOS thrombolysis with catheter directed tPA administration and systemic heparin. 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 1) Continue with Eliquis 5 mg BID and aspirin 81 2) Ideally, patient would benefit from Adempas (Riociguat) given this is best studied in patients with chronic thromboembolic pulmonary hypertension. 3) Uptravi recommended by Pulmonology. 4) Digoxin 0.125 mg 5) Continue with other medications as per primary team. Case discussed and reviewed with attending physician, Dr. Logan
[2017-06-27] MEDS: Pantoprazole 40 mg EC Tab PO SCH (10:53)
[2017-06-27 11:18] LABS: BASO % 0.1 % (0.0-2.0); EOS % 0.3 % (0.0-4.0); HEMOGLOBIN 12.8 g/dL (11.0-16.0); LYMPH # 2.7 K/uL (1.0-4.3); LYMPH % 32.9 % (20.0-40.0); MEAN CELL VOLUME 91.8 fL (81.0-99.0); MEAN CORPUSCULAR HEMOGLOBIN 30.7 pg (27.0-31.0); MEAN CORPUSCULAR HGB CONC 33.5 g/dL (33.0-37.0); MEAN PLATELET VOLUME 9.7 fL (7.2-11.7); MONO # 0.4 K/uL (0.0-0.8); MONO % 5.1 % (0.0-10.0); NEUT # 5.1 K/uL (1.8-7.0); NEUT % 61.6 % (50.0-75.0); RBC 4.18 Mil/uL (3.80-5.20); RED CELL DISTRIBUTION WIDTH 15.7 % (11.5-14.5); WHITE BLOOD COUNT 8.2 K/uL (4.8-10.8)
[2017-06-27 12:06] LABS: ALB/GLOB RATIO 0.8 (1.0-2.1); ALBUMIN 2.8 g/dL (3.5-5.0); ALT/SGPT 27 U/L (9-52); AST/SGOT 28 U/L (14-36); BLOOD UREA NITROGEN 15 mg/dL (7-17); CALCIUM 8.3 mg/dl (8.6-10.4); GFR AFRICAN-AMERICAN > 60; GFR NON-AFRICAN AMERICAN > 60; MAGNESIUM 1.9 mg/dL (1.6-2.3)
[2017-06-27] MEDS: Digoxin 125 mcg (0.125 mg) Tab PO SCH (18:07)
[2017-06-28] MEDS: Albuterol-Ipratrop 3 mg / 0.5 (3 ml) UD INH SCH ×4 (01:48→19:50)
[2017-06-28 08:30] LABS: BASO % 0.3 % (0.0-2.0); EOS % 0.1 % (0.0-4.0); HEMOGLOBIN 13.5 g/dL (11.0-16.0); LYMPH # 1.9 K/uL (1.0-4.3); LYMPH % 20.6 % (20.0-40.0); MEAN CELL VOLUME 91.6 fL (81.0-99.0); MEAN CORPUSCULAR HEMOGLOBIN 30.7 pg (27.0-31.0); MEAN CORPUSCULAR HGB CONC 33.5 g/dL (33.0-37.0); MEAN PLATELET VOLUME 9.8 fL (7.2-11.7); MONO # 0.6 K/uL (0.0-0.8); MONO % 7.1 % (0.0-10.0); NEUT # 6.6 K/uL (1.8-7.0); NEUT % 71.9 % (50.0-75.0); RBC 4.42 Mil/uL (3.80-5.20); RED CELL DISTRIBUTION WIDTH 15.5 % (11.5-14.5); WHITE BLOOD COUNT 9.1 K/uL (4.8-10.8)
[2017-06-28 09:05] LABS: ALB/GLOB RATIO 0.9 (1.0-2.1); ALBUMIN 3.1 g/dL (3.5-5.0); ALT/SGPT 26 U/L (9-52); AST/SGOT 27 U/L (14-36); BLOOD UREA NITROGEN 18 mg/dL (7-17); CALCIUM 8.9 mg/dl (8.6-10.4); GFR AFRICAN-AMERICAN > 60; GFR NON-AFRICAN AMERICAN > 60
[2017-06-28] MEDS: Pantoprazole 40 mg EC Tab PO SCH (10:47)
--- NOTE | 2017-06-28 13:47 | CP.PCM.PN ---
Subjective - Date & Time of Evaluation Date of Evaluation: 06/28/17 Time of Evaluation: 13:47 - Subjective Subjective: Cardiology Progress Note for Dr. Logan Patient seen and examined at bedside. Patient reports dyspnea; denies chest pain and shortness of breath. Patient requested for her daughter Radha to be contacted. Case discussed with case management and social work. Objective - Vital Signs/Intake and Output Vital Signs (last 24 hours): Temp Pulse Resp BP Pulse Ox 97.7 F 87 20 101/70 98 06/28/17 07:08 06/28/17 07:08 06/28/17 13:32 06/28/17 07:08 06/28/17 07:08 Intake and Output: 06/28/17 06/28/17 06:59 18:59 Intake Total 500 Balance 500 - Medications Medications: Current Medications Albuterol/Ipratropium (Duoneb 3 Mg/0.5 Mg (3 Ml) Ud) 3 ml INH RQ6 [facility] Last Admin: 06/28/17 13:29 Dose: 3 ml Apixaban (Eliquis) 5 mg PO BID [facility] Last Admin: 06/28/17 10:47 Dose: 5 mg Aspirin (Aspirin) 325 mg PO DAILY [facility] Last Admin: 06/28/17 10:47 Dose: 325 mg Bisacodyl (Dulcolax) 10 mg [place] HS PRN PRN Reason: Constipation Digoxin (Digoxin) 0.125 mg PO 1800 [facility] Last Admin: 06/27/17 18:07 Dose: 0.125 mg Docusate Sodium (Colace) 100 mg PO TID [facility] Last Admin: 06/28/17 10:47 Dose: 100 mg Furosemide (Lasix) 40 mg IVP DAILY [facility] Methylprednisolone (Solu-Medrol) 20 mg IVP Q12 [facility] Last Admin: 06/28/17 10:47 Dose: 20 mg Pantoprazole Sodium (Protonix Ec Tab) 40 mg PO DAILY [facility] Last Admin: 06/28/17 10:47 Dose: 40 mg Sennosides (Senokot Tab) 8.6 mg PO DAILY [facility] Last Admin: 06/28/17 10:47 Dose: 8.6 mg - Labs Labs: 06/28/17 08:22 06/28/17 08:22 PT 12.1 SECONDS (9.7-12.2) 06/21/17 00:12 INR 1.1 06/21/17 00:12 APTT 105 SECONDS (21-34) H* D 06/21/17 06:24 - Constitutional Appears: No Acute Distress, Cachectic, Chronically Ill - Head Exam Head Exam: ATRAUMATIC, NORMOCEPHALIC - Eye Exam Eye Exam: EOMI, Normal appearance - ENT Exam ENT Exam: Mucous Membranes Moist - Neck Exam Neck Exam: Normal Inspection - Respiratory Exam Respiratory Exam: Accessory Muscle Use, Decreased Breath Sounds Additional comments: RR of 28 - Cardiovascular Exam Cardiovascular Exam: Tachycardia, +S1, +S2 - GI/Abdominal Exam GI & Abdominal Exam: Soft, Normal Bowel Sounds. absent: Tenderness - Extremities Exam Extremities Exam: Normal Capillary Refill, Normal Inspection. absent: Calf Tenderness - Back Exam Back Exam: absent: CVA tenderness (L), CVA tenderness (R) - Neurological Exam Neurological Exam: Alert, Awake, Oriented x3 - Psychiatric Exam Psychiatric exam: Normal Affect, Normal Mood - Skin Skin Exam: Dry, Intact, Normal Color, Warm Assessment and Plan - Assessment and Plan (Free Text) Assessment: 57 year old female with advanced rheumatoid arthritis, immobility/bed-bound for 6 past months, and a prior history of PE who is status post EKOS thrombolysis with catheter directed tPA administration and systemic heparin. Currently, patient is on telemetry on high flow nasal oxygen. 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 Physical therapy recommends [facility]; however, patient is requiring high flow (10 L humidified ) oxygen, rendering her a difficult candidate to be transferred. Given the protracted hospital course the patient has required, the patient would be better served under the care of the hospitalist team. Case was discussed with the acetaldehyde converter operator hospitalist, Dr. Henry Lei. Any further recommendations per Dr. Logan, attending physician.
[2017-06-28 14:39] LABS: ABG ALLEN TEST POS; ARTERIAL BLOOD GAS HCO3 27.6 mmol/L (21-28); ARTERIAL BLOOD GAS HEMOGLOBIN 14.7 g/dL (11.7-17.4); ARTERIAL BLOOD GAS O2 SAT 95.9 % (95-98); ARTERIAL BLOOD GAS PCO2 43 mm/Hg (35-45); ARTERIAL BLOOD GAS PH 7.43 (7.35-7.45); ARTERIAL BLOOD GAS PO2 64 mm/Hg (80-100); ARTERIAL BLOOD GAS TCO2 29.8 mmol/L (22-28)
--- NOTE | 2017-06-28 14:49 | CP.PCM.DIS ---
Provider - Provider Date of Admission: 06/20/17 19:06 Attending physician: Dr. Steven Logan MD Consults: Dr. Quesada Time Spent in preparation of Discharge (in minutes): 45 Hospital Course - Lab Results Lab Results: Micro Results 06/20/17 22:21 Nose MRSA Culture (Admit) - Final MRSA DETECTED Most Recent Lab Values WBC 9.1 K/uL (4.8-10.8) 06/28/17 08:22 RBC 4.42 Mil/uL (3.80-5.20) 06/28/17 08:22 Hgb 13.5 g/dL (11.0-16.0) 06/28/17 08: Hct 40.4 % (34.0-47.0) 06/28/17 08:22 MCV 91.6 fL (81.0-99.0) 06/28/17 08:22 MCH 30.7 pg (27.0-31.0) 06/28/17 08: MCHC 33.5 g/dL (33.0-37.0) 06/28/17 08:22 RDW 15.5 % (11.5-14.5) H 06/28/17 08: Plt Count 286 K/uL (130-400) 06/28/17 08:22 MPV 9.8 fL (7.2-11.7) 06/28/17 08:22 Neut % (Auto) 71.9 % (50.0-75.0) 06/28/17 08: Lymph % (Auto) 20.6 % (20.0-40.0) 06/28/17 08:22 Terrell % (Auto) 7.1 % (0.0-10.0) 06/28/17 08: Eos % (Auto) 0.1 % (0.0-4.0) 06/28/17 08: Baso % (Auto) 0.3 % (0.0-2.0) 06/28/17 08: Neut # (Auto) 6.6 K/uL (1.8-7.0) 06/28/17 08:22 Lymph # (Auto) 1.9 K/uL (1.0-4.3) 06/28/17 08:22 Terrell # (Auto) 0.6 K/uL (0.0-0.8) 06/28/17 08:22 Eos # (Auto) 0.0 K/uL (0.0-0.7) 06/28/17 08:22 Baso # (Auto) 0.0 K/uL (0.0-0.2) 06/28/17 08:22 ESR 45 mm/hr (0-20) H 06/22/17 11:53 PT 12.1 SECONDS (9.7-12.2) 06/21/17 00:12 INR 1.1 06/21/17 00:12 APTT 105 SECONDS (21-34) H* D 06/21/17 06:24 Puncture Site Lr 06/23/17 06:17 pCO2 47 mm/Hg (35-45) H 06/23/17 06:17 pO2 71 mm/Hg (80-100) L 06/23/17 06:17 HCO3 26.0 mmol/L (21-28) 06/23/17 06:17 ABG pH 7.37 (7.35-7.45) 06/23/17 06:17 ABG Total CO2 28.6 mmol/L (22-28) H 06/23/17 06:17 ABG O2 Saturation 97.0 % (95-98) 06/23/17 06:17 ABG Base Excess 1.4 mmol/L (-2.0-3.0) 06/23/17 06:17 ABG Hemoglobin 11.6 g/dL (11.7-17.4) L 06/23/17 06:17 ABG Carboxyhemoglobin 1.4 % (0.5-1.5) 06/23/17 06:17 POC ABG HHb (Measured) 2.9 % (0.0-5.0) 06/23/17 06:17 ABG Methemoglobin 1.3 % (0.0-3.0) 06/23/17 06:17 Cedric Test Pos 06/23/17 06:17 A-a O2 Difference 583.0 mm/Hg 06/23/17 06:17 Respiratory Index 8.2 06/23/17 06:17 Hgb O2 Saturation 94.4 % (95.0-98.0) L 06/23/17 06:17 Liter Flow 5.0 06/22/17 05:06 Vent Mode Bipap 06/22/17 05:06 FiO2 100.0 % 06/23/17 06:17 Inspiratory BiPAP 14 06/22/17 05:06 Expiratory BiPAP 6 06/22/17 05:06 Crit Value Called To Alejandro haynes 06/21/17 19:30 Crit Value Called By Ana 06/21/17 19:30 Crit Value Read Back Y 06/21/17 19:30 Blood Gas Notified Time 193206/21/17 19:30 Sodium 133 mmol/L (132-148) 06/28/17 08:22 Potassium 5.1 mmol/L (3.6-5.2) 06/28/17 08:22 Chloride 96 mmol/L (98-107) L 06/28/17 08:22 Carbon Dioxide 31 mmol/L (22-30) H 06/28/17 08:22 Anion Gap 11 (10-20) 06/28/17 08:22 BUN 18 mg/dL (7-17) H 06/28/17 08:22 Creatinine 0.2 mg/dL (0.7-1.2) L 06/28/17 08:22 Est GFR ( Amer) > 60 06/28/17 08:22 Est GFR (Non-Af Amer) > 60 06/28/17 08:22 POC Glucose (mg/dL) 136 mg/dL (65-110) H 06/26/17 16:29 Random Glucose 86 mg/dL (65-105) 06/28/17 08:22 Calcium 8.9 mg/dl (8.6-10.4) 06/28/17 08:22 Phosphorus 3.2 mg/dL (2.5-4.5) 06/27/17 11:05 Magnesium 1.9 mg/dL (1.6-2.3) 06/27/17 11:05 Total Bilirubin 0.3 mg/dL (0.2-1.3) 06/28/17 08:22 AST 27 U/L (14-36) 06/28/17 08:22 ALT 26 U/L (9-52) 06/28/17 08:22 Alkaline Phosphatase 89 U/L (38-126) 06/28/17 08:22 Total Creatine Kinase 30 U/L (30-135) 06/21/17 06:23 CK-MB (Mass) 2.93 ng/mL (0.0-3.38) 06/21/17 06:23 Troponin I 0.5630 ng/mL (0.00-0.120) H* 06/21/17 06:23 C-React Prot High Sens > 15.00 mg/L (1.00-3.00) H 06/22/17 11:58 NT-Pro-B Natriuret Pep 7280 pg/mL (0-900) H 06/22/17 11:58 Total Protein 6.5 g/dL (6.3-8.3) 06/28/17 08:22 Albumin 3.1 g/dL (3.5-5.0) L 06/28/17 08:22 Globulin 3.5 gm/dL (2.2-3.9) 06/28/17 08:22 Albumin/Globulin Ratio 0.9 (1.0-2.1) L 06/28/17 08:22 Triglycerides 101 mg/dL (0-149) 06/21/17 06:23 Cholesterol 153 mg/dL (0-199) 06/21/17 06:23 LDL Cholesterol Direct 103 mg/dL (0-129) 06/21/17 06:23 HDL Cholesterol 29 mg/dL (30-70) L 06/21/17 06:23 - Hospital Course Hospital Course: 57 year old female with a past medical history of Rheumatoid Arthritis, immobility secondary to multiple fractures, anemia, and prior history of a pulmonary embolism who presented to [facility] with gradually worsening dyspnea, new-onset lower extremity edema, and was found to have a right sided pulmonary embolism causing severe right heart strain and . The patient was emergently transferred to [facility] - Date & Time of H&P Date of H&P: 06/28/17 Time of H&P: 14:51 Discharge Exam - Head Exam Head Exam: ATRAUMATIC, NORMOCEPHALIC Discharge Plan - Discharge Medications Prescriptions: Apixaban [Eliquis] 5 mg PO BID #60 tab Digoxin 0.125 mg PO DAILY #30 tab Furosemide [Lasix] 20 mg PO DAILY #30 tab - Follow Up Plan Condition: GOOD Disposition: HOME/ ROUTINE
[2017-06-28] MEDS: Digoxin 125 mcg (0.125 mg) Tab PO SCH (18:25)
[2017-06-29] MEDS: Albuterol-Ipratrop 3 mg / 0.5 (3 ml) UD INH SCH ×3 (01:46→19:29)
[2017-06-29 08:07] LABS: BASO % 0.1 % (0.0-2.0); HEMOGLOBIN 12.7 g/dL (11.0-16.0); LYMPH # 1.3 K/uL (1.0-4.3); LYMPH % 15.8 % (20.0-40.0); MEAN CELL VOLUME 91.5 fL (81.0-99.0); MEAN CORPUSCULAR HEMOGLOBIN 30.7 pg (27.0-31.0); MEAN CORPUSCULAR HGB CONC 33.6 g/dL (33.0-37.0); MEAN PLATELET VOLUME 9.5 fL (7.2-11.7); MONO # 0.5 K/uL (0.0-0.8); MONO % 6.5 % (0.0-10.0); NEUT # 6.3 K/uL (1.8-7.0); NEUT % 77.6 % (50.0-75.0); NRBC % 0.1 % (0.0-2.0); RBC 4.13 Mil/uL (3.80-5.20); RED CELL DISTRIBUTION WIDTH 15.2 % (11.5-14.5); WHITE BLOOD COUNT 8.1 K/uL (4.8-10.8)
[2017-06-29 10:11] LABS: ALB/GLOB RATIO 0.9 (1.0-2.1); ALBUMIN 3.2 g/dL (3.5-5.0); ALT/SGPT 33 U/L (9-52); AST/SGOT 43 U/L (14-36); BLOOD UREA NITROGEN 16 mg/dL (7-17); CALCIUM 9.1 mg/dl (8.6-10.4); GFR AFRICAN-AMERICAN > 60; GFR NON-AFRICAN AMERICAN > 60
[2017-06-29] MEDS: Pantoprazole 40 mg EC Tab PO SCH (11:53)
[2017-06-29] MEDS ORDERED: Oxycodone/Acetaminophen 5/325 mg Tab PO PRN ×2 (13:19→16:09)
--- NOTE | 2017-06-29 14:47 | CP.PCM.PN ---
<Nereida Coughlin - Last Filed: 06/29/17 20:03> Subjective - Date & Time of Evaluation Date of Evaluation: 06/29/17 Time of Evaluation: 10:45 - Subjective Subjective: Patient seen and examined at bedside. Patient reports stable level of dyspnea. Case discussed with sister at bedside. Chart review indicates no events overnight. Objective - Vital Signs/Intake and Output Vital Signs (last 24 hours): Temp Pulse Resp BP Pulse Ox 98.0 F 100 H 20 91/60 L 95 06/29/17 07:35 06/29/17 08:00 06/29/17 12:30 06/29/17 11:53 06/29/17 07:35 Intake and Output: 06/29/17 06/29/17 06:59 18:59 Output Total 1000 Balance -1000 - Medications Medications: Current Medications Albuterol/Ipratropium (Duoneb 3 Mg/0.5 Mg (3 Ml) Ud) 3 ml INH RQ6 [facility] Last Admin: 06/29/17 07:05 Dose: 3 ml Apixaban (Eliquis) 5 mg PO BID [facility] Last Admin: 06/29/17 11:53 Dose: 5 mg Aspirin (Aspirin Chewable) 81 mg PO DAILY [facility] Bisacodyl (Dulcolax) 10 mg [place] HS PRN PRN Reason: Constipation Calcium/Vitamin D (Oyster Shell Calcium/Vitamin D 500 Mg-200 Iu) 1 tab PO DAILY [facility] Clonazepam (Klonopin) 0.5 mg PO BID [facility] Digoxin (Digoxin) 0.125 mg PO 1800 [facility] Last Admin: 06/28/17 18:25 Dose: 0.125 mg Diltiazem HCl (Cardizem) 30 mg PO QID [facility] Furosemide (Lasix) 40 mg IVP DAILY [facility] Last Admin: 06/29/17 11:53 Dose: Not Given Oxycodone/Acetaminophen (Percocet 5/325 Mg Tab) 5 tab PO Q6H PRN PRN Reason: Pain, severe (8-10) Stop: 07/02/17 13:19 Pantoprazole Sodium (Protonix Ec Tab) 40 mg PO DAILY [facility] Last Admin: 06/29/17 11:53 Dose: 40 mg - Labs Labs: 06/29/17 07:55 06/29/17 07:55 PT 12.1 SECONDS (9.7-12.2) 06/21/17 00:12 INR 1.1 06/21/17 00:12 APTT 105 SECONDS (21-34) H* D 06/21/17 06:24 - Constitutional Appears: Non-toxic, Older Than Stated Age, Cachectic - Head Exam Head Exam: ATRAUMATIC, NORMOCEPHALIC - Eye Exam Eye Exam: EOMI, Normal appearance - ENT Exam ENT Exam: Normal Oropharynx - Respiratory Exam Respiratory Exam: Decreased Breath Sounds Additional comments: RR of 28 - Cardiovascular Exam Cardiovascular Exam: RRR, +S1, +S2 - GI/Abdominal Exam GI & Abdominal Exam: Soft. absent: Guarding, Rebound - Extremities Exam Extremities Exam: absent: Pedal Edema - Neurological Exam Neurological Exam: Alert, Awake, Oriented x3 - Psychiatric Exam Psychiatric exam: Normal Affect, Normal Mood - Skin Skin Exam: Dry, Intact, Normal Color, Warm Assessment and Plan - Assessment and Plan (Free Text) Assessment: 57 year old female with advanced rheumatoid arthritis, immobility/bed-bound for 6 past months, and a prior history of PE who is status post EKOS thrombolysis with catheter directed tPA administration and systemic heparin. Currently, patient is on telemetry on high flow nasal oxygen. 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 - Eliquis 5 mg BID - High flow oxygen via Nasal Cannula - Digoxin 0.125 mg PO daily (digoxin level low) - Furosemide 40 mg IV Daily - Diltiazem 30 mg QID [facility] - Albuterol/Ipratropium 3mg/0.5 q6h - Clonazepam 0.5 mg 21:00 Daily [facility] 2) Rheumatoid Arthritis - Steroid break for the next few day, will continue to monitor patient clinically. - 5 mg Percocet for Severe Pain q6h 3) Constipation - Colace 100 mg TID (discontinued secondary to prolonged use) - Glycerin Suppository 4) GI/DVT prophylaxis - Pantoprazole 40 mg PO daily - Sequential Compression Device Disposition: Case discussed with social work and case management. Physical therapy initially recommended [facility]; however, the patient is requiring high flow ( 10 L humidified) oxygen, rendering her an unlikely candidate to be accepted to a [facility], but may be accepted to an LTAC. Given the patient's protracted hospital course, the patient would best be served under the care of the hospitalist team . Once again, this case was discussed with the refrigeration technician hospitalist, on 06/28/17, Dr. Lei, but no transfer of service was arranged. Case was discussed with the attending physician, assistant statistician, Dr. Logan who is also serving as the primary physician since this patient's admission to [facility] on 06/20/17. <Steven Logan - Last Filed: 07/03/17 18:33> Objective - Vital Signs/Intake and Output Vital Signs (last 24 hours): Temp Pulse Resp BP Pulse Ox 99.7 F H 125 H 18 102/70 96 07/03/17 15:00 07/03/17 15:00 07/03/17 18:23 07/03/17 15:00 07/03/17 15:00 Intake and Output: 07/03/17 07/03/17 06:59 18:59 Intake Total 250 770 Output Total 200 Balance 50 770 - Medications Medications: Current Medications Apixaban (Eliquis) 5 mg PO BID [facility] Last Admin: 07/03/17 18:02 Dose: 5 mg Aspirin (Aspirin Chewable) 81 mg PO DAILY [facility] Last Admin: 07/03/17 10:31 Dose: 81 mg Calcium/Vitamin D (Oyster Shell Calcium/Vitamin D 500 Mg-200 Iu) 1 tab PO DAILY [facility] Last Admin: 07/03/17 10:31 Dose: 1 tab Clonazepam (Klonopin) 0.5 mg PO Q24H [facility] Digoxin (Digoxin) 0.125 mg PO 1800 [facility] Last Admin: 07/03/17 18:02 Dose: 0.125 mg Diltiazem HCl (Cardizem) 30 mg PO QID [facility] Last Admin: 07/03/17 18:02 Dose: 30 mg Docusate Sodium (Colace) 100 mg PO TID [facility] Last Admin: 07/03/17 18:02 Dose: 100 mg Furosemide (Lasix) 40 mg IVP DAILY [facility] Last Admin: 07/03/17 10:33 Dose: Not Given Home Med (Patient's Own Medication) 1 tab PO TID [facility] Last Admin: 07/03/17 18:03 Dose: 1 tab Ceftriaxone Sodium 1 gm/ (Sodium Chloride) 100 mls @ 200 mls/hr IVPB Q24H [facility] Last Admin: 07/03/17 14:07 Dose: 200 mls/hr Mupirocin (Bactroban 2% Nasal) 0.5 gm AKIRA BID [facility] Last Admin: 07/03/17 10:30 Dose: Not Given Oxycodone/Acetaminophen (Percocet 5/325 Mg Tab) 1 tab PO Q6H PRN PRN Reason: Pain, moderate (4-7) Stop: 07/05/17 19:21 Last Admin: 07/02/17 19:36 Dose: 1 tab Pantoprazole Sodium (Protonix Ec Tab) 40 mg PO DAILY [facility] Last Admin: 07/03/17 10:30 Dose: 40 mg - Labs Labs: 07/03/17 09:28 07/03/17 09:28 PT 12.1 SECONDS (9.7-12.2) 06/21/17 00:12 INR 1.1 06/21/17 00:12 APTT 105 SECONDS (21-34) H* D 06/21/17 06:24 Assessment and Plan (1) CHF (congestive heart failure) Status: Acute (2) Chest pain Status: Acute (3) HTN (hypertension) Status: Acute (4) Pulmonary emboli Status: Acute (5) Respiratory failure Status: Acute (6) Anemia Status: Chronic (7) Pulmonary HTN Status: Chronic (8) RA (rheumatoid arthritis) Status: Chronic Attending/Attestation - Attestation I have personally seen and examined this patient.: Yes I have fully participated in the care of the patient.: Yes I have reviewed all pertinent clinical information, including history, physical exam and plan: Yes
[2017-06-29] MEDS: Digoxin 125 mcg (0.125 mg) Tab PO SCH (17:46)
[2017-06-29] MEDS ORDERED: Oxycodone/Acetaminophen 5/325 mg Tab PO SCH (18:00)
--- NOTE | 2017-06-30 00:38 | CP.PCM.CON ---
History of Present Illness - History of Present Illness History of Present Illness: 57 year old female with advanced rheumatoid arthritis with extensive deformities of hand and feet, immobility/bed-bound for 6 past months, and a prior history of secomdary pulmonary HTN PE who is status post EKOS thrombolysis with catheter directed tPA administration and systemic heparin. Currently, patient is on telemetry on high flow nasal oxygen. Past Patient History - Past Medical History & Family History Past Medical History?: Yes - Past Social History Smoking Status: Never Smoked Alcohol: None - CARDIAC Hx Cardiac Disorders: Yes Hx Congestive Heart Failure: No Hx Hypercholesterolemia: No Hx Hypertension: Yes Other/Comment: stents - PULMONARY Hx Respiratory Disorders: Yes Hx Chronic Obstructive Pulmonary Disease (COPD): No - NEUROLOGICAL Hx Neurological Disorder: No HX Cerebrovascular Accident: No - HEENT Hx HEENT Problems: No - RENAL Hx Chronic Kidney Disease: No - ENDOCRINE/METABOLIC Hx Endocrine Disorders: No Hx Diabetes Mellitus Type 1: No Hx Diabetes Mellitus Type 2: No Hx Hypothyroidism: No - HEMATOLOGICAL/ONCOLOGICAL Hx Human Immunodeficiency Virus (HIV): No - INTEGUMENTARY Hx Dermatological Problems: No - MUSCULOSKELETAL/RHEUMATOLOGICAL Hx Arthritis: Yes - GASTROINTESTINAL Hx Gastrointestinal Disorders: No Hx Constipation: Yes - GENITOURINARY/GYNECOLOGICAL Hx Genitourinary Disorders: No - PSYCHIATRIC Hx Psychophysiologic Disorder: Yes Hx Anxiety: Yes Hx Depression: Yes Hx Physical Abuse: No Hx Substance Use: No - SURGICAL HISTORY Hx Surgeries: Yes Hx Joint Replacement: Yes (lenard hip/knee replacement) Other/Comment: B/l hand surgery - ANESTHESIA Hx Anesthesia: Yes Hx Anesthesia Reactions: No Meds Home Medications: Home Medication List Medication Instructions Recorded Confirmed Type Apixaban [Eliquis] 5 mg PO BID #60 tab 06/28/17 Rx Digoxin 0.125 mg PO DAILY #30 tab 06/28/17 Rx Furosemide [Lasix] 20 mg PO DAILY #30 tab 06/28/17 Rx Allergies/Adverse Reactions: Allergies Allergy/AdvReac Type Severity Reaction Status Date / Time asparagus Allergy RASH Verified 06/18/17 19:34 - Medications Medications: Current Medications Albuterol/Ipratropium (Duoneb 3 Mg/0.5 Mg (3 Ml) Ud) 3 ml INH RQ6 [facility] Last Admin: 06/29/17 19:29 Dose: 3 ml Apixaban (Eliquis) 5 mg PO BID [facility] Last Admin: 06/29/17 17:48 Dose: 5 mg Aspirin (Aspirin Chewable) 81 mg PO DAILY [facility] Calcium/Vitamin D (Oyster Shell Calcium/Vitamin D 500 Mg-200 Iu) 1 tab PO DAILY [facility] Clonazepam (Klonopin) 0.5 mg PO DAILY [facility] Digoxin (Digoxin) 0.125 mg PO 1800 [facility] Last Admin: 06/29/17 17:46 Dose: 0.125 mg Diltiazem HCl (Cardizem) 30 mg PO QID [facility] Last Admin: 06/29/17 22:58 Dose: Not Given Furosemide (Lasix) 40 mg IVP DAILY [facility] Oxycodone/Acetaminophen (Percocet 5/325 Mg Tab) 1 tab PO Q6H PRN PRN Reason: Pain, severe (8-10) Stop: 07/02/17 16:10 Pantoprazole Sodium (Protonix Ec Tab) 40 mg PO DAILY [facility] Last Admin: 06/29/17 11:53 Dose: 40 mg Physical Exam - Constitutional Appears: Chronically Ill - Head Exam Head Exam: ATRAUMATIC, NORMAL INSPECTION, NORMOCEPHALIC - Respiratory Exam Respiratory Exam: Decreased Breath Sounds, Rales, Rhonchi - Cardiovascular Exam Cardiovascular Exam: +S1, +S2, Systolic Murmur - GI/Abdominal Exam GI & Abdominal Exam: Normal Bowel Sounds, Soft. absent: Tenderness - Neurological Exam Neurological exam: CN II-XII Intact - Psychiatric Exam Psychiatric exam: Normal Affect Results - Vital Signs Recent Vital Signs: Last Vital Signs Temp 98.2 F 06/29/17 15:00 Pulse 101 H 06/29/17 17:45 Resp 22 06/29/17 19:32 BP 97/62 L 06/29/17 17:45 Pulse Ox 95 06/29/17 15:00 - Labs Result Diagrams: 06/29/17 07:55 06/29/17 07:55 Labs: Laboratory Results - last 24 hr 06/29/17 06/29/17 06/29/17 07:55 07:55 12:08 WBC 8.1 RBC 4.13 Hgb 12.7 Hct 37.8 MCV 91.5 MCH 30.7 MCHC 33.6 RDW 15.2 H Plt Count 293 MPV 9.5 Neut % (Auto) 77.6 H Lymph % (Auto) 15.8 L Letcher % (Auto) 6.5 Eos % (Auto) 0.0 Baso % (Auto) 0.1 Neut # (Auto) 6.3 Lymph # (Auto) 1.3 Letcher # (Auto) 0.5 Eos # (Auto) 0.0 Baso # (Auto) 0.0 Sodium 132 Potassium 4.7 Chloride 99 Carbon Dioxide 24 Anion Gap 14 BUN 16 Creatinine 0.2 L Est GFR ( Amer) > 60 Est GFR (Non-Af Amer) > 60 Random Glucose 104 Calcium 9.1 Total Bilirubin 0.4 AST 43 H D ALT 33 Alkaline Phosphatase 83 NT-Pro-B Natriuret Pep 4760 H Total Protein 6.6 Albumin 3.2 L Globulin 3.4 Albumin/Globulin Ratio 0.9 L Digoxin 06/29/17 14:33 WBC RBC Hgb Hct MCV MCH MCHC RDW Plt Count MPV Neut % (Auto) Lymph % (Auto) Letcher % (Auto) Eos % (Auto) Baso % (Auto) Neut # (Auto) Lymph # (Auto) Letcher # (Auto) Eos # (Auto) Baso # (Auto) Sodium Potassium Chloride Carbon Dioxide Anion Gap BUN Creatinine Est GFR ( Amer) Est GFR (Non-Af Amer) Random Glucose Calcium Total Bilirubin AST ALT Alkaline Phosphatase NT-Pro-B Natriuret Pep Total Protein Albumin Globulin Albumin/Globulin Ratio Digoxin 0.6 L Assessment & Plan (1) DVT prophylaxis Status: Acute (2) HTN (hypertension) Status: Acute (3) PHT (pulmonary hypertension) Status: Acute (4) CAD (coronary artery disease) Status: Chronic (5) Pulmonary HTN Status: Chronic Priority: High (6) Rheumatoid arthritis Status: Chronic - Assessment and Plan (Free Text) Plan: Plan: 1) 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 - Eliquis 5 mg BID - High flow oxygen via Nasal Cannula - Digoxin 0.125 mg PO daily (digoxin level low) - Furosemide 40 mg IV Daily - Diltiazem 30 mg QID [facility] - Albuterol/Ipratropium 3mg/0.5 q6h - Clonazepam 0.5 mg 21:00 Daily [facility] 2) Rheumatoid Arthritis - Steroid break for the next few day, will continue to monitor patient clinically. - 5 mg Percocet for Severe Pain q6h 3) Constipation - Colace 100 mg TID (discontinued secondary to prolonged use) - Glycerin Suppository 4) GI/DVT prophylaxis - Pantoprazole 40 mg PO daily - Sequential Compression Device Disposition: Case discussed with social work and case management. Physical therapy initially recommended [facility]; however, the patient is requiring high flow ( 10 L humidified) oxygen, rendering her an unlikely candidate to be accepted to a [facility], but may be accepted to an LTAC. Given the patient's protracted hospital course, the patient would best be served under the care of the hospitalist team .
[2017-06-30] MEDS: Albuterol-Ipratrop 3 mg / 0.5 (3 ml) UD INH SCH ×4 (02:33→19:18)
[2017-06-30 07:49] LABS: ALB/GLOB RATIO 0.9 (1.0-2.1); ALBUMIN 2.9 g/dL (3.5-5.0); ALT/SGPT 33 U/L (9-52); AST/SGOT 34 U/L (14-36); BLOOD UREA NITROGEN 25 mg/dL (7-17); CALCIUM 8.9 mg/dl (8.6-10.4); GFR AFRICAN-AMERICAN > 60; GFR NON-AFRICAN AMERICAN > 60
[2017-06-30] MEDS ORDERED: PREDNISONE 20 MG PO SCH (10:00)
[2017-06-30] MEDS: Pantoprazole 40 mg EC Tab PO SCH (10:40)
[2017-06-30] MEDS: Calcium-Vit D 500 mg-200 Units Tab UD PO SCH (10:40)
[2017-06-30] MEDS: Digoxin 125 mcg (0.125 mg) Tab PO SCH (19:31)
--- NOTE | 2017-06-30 23:29 | CP.PCM.PN ---
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, pt is on antibiotics Objective - Vital Signs/Intake and Output Vital Signs (last 24 hours): Temp Pulse Resp BP Pulse Ox 97.7 F 111 H 18 95/64 L 95 06/30/17 16:17 06/30/17 16:17 06/30/17 19:18 06/30/17 21:57 06/30/17 16:17 Intake and Output: 06/30/17 07/01/17 18:59 06:59 Intake Total 280 Output Total 1200 Balance -920 - Medications Medications: Current Medications Albuterol/Ipratropium (Duoneb 3 Mg/0.5 Mg (3 Ml) Ud) 3 ml INH RQ6 [facility] Last Admin: 06/30/17 19:18 Dose: 3 ml Apixaban (Eliquis) 5 mg PO BID [facility] Last Admin: 06/30/17 19:30 Dose: 5 mg Aspirin (Aspirin Chewable) 81 mg PO DAILY [facility] Last Admin: 06/30/17 10:39 Dose: 81 mg Calcium/Vitamin D (Oyster Shell Calcium/Vitamin D 500 Mg-200 Iu) 1 tab PO DAILY [facility] Last Admin: 06/30/17 10:40 Dose: 1 tab Clonazepam (Klonopin) 0.5 mg PO DAILY [facility] Last Admin: 06/30/17 21:37 Dose: 0.5 mg Digoxin (Digoxin) 0.125 mg PO 1800 [facility] Last Admin: 06/30/17 19:31 Dose: 0.125 mg Diltiazem HCl (Cardizem) 30 mg PO QID [facility] Last Admin: 06/30/17 21:57 Dose: Not Given Docusate Sodium (Colace) 100 mg PO TID [facility] Furosemide (Lasix) 40 mg IVP DAILY [facility] Last Admin: 06/30/17 10:40 Dose: Not Given Mupirocin (Bactroban 2% Nasal) 0.5 gm AKIRA BID [facility] Oxycodone/Acetaminophen (Percocet 5/325 Mg Tab) 1 tab PO Q6H PRN PRN Reason: Pain, severe (8-10) Stop: 07/02/17 16:10 Pantoprazole Sodium (Protonix Ec Tab) 40 mg PO DAILY [facility] Last Admin: 06/30/17 10:40 Dose: 40 mg - Labs Labs: 06/29/17 07:55 06/30/17 07:26 PT 12.1 SECONDS (9.7-12.2) 06/21/17 00:12 INR 1.1 06/21/17 00:12 APTT 105 SECONDS (21-34) H* D 06/21/17 06:24 - Constitutional Appears: No Acute Distress - Head Exam Head Exam: ATRAUMATIC, NORMAL INSPECTION, NORMOCEPHALIC - Eye Exam Eye Exam: EOMI, Normal appearance, PERRL Pupil Exam: NORMAL ACCOMODATION, PERRL - Respiratory Exam Respiratory Exam: Clear to Ausculation Bilateral, NORMAL BREATHING PATTERN - Cardiovascular Exam Cardiovascular Exam: REGULAR RHYTHM, +S1, +S2. absent: Murmur - GI/Abdominal Exam GI & Abdominal Exam: Soft, Normal Bowel Sounds. absent: Tenderness Assessment and Plan (1) DVT prophylaxis Status: Acute (2) HTN (hypertension) Status: Acute (3) PHT (pulmonary hypertension) Status: Acute (4) CAD (coronary artery disease) Status: Chronic (5) Pulmonary HTN Status: Chronic (6) Rheumatoid arthritis Status: Chronic
[2017-07-01] MEDS: Albuterol-Ipratrop 3 mg / 0.5 (3 ml) UD INH SCH ×4 (02:21→20:36)
[2017-07-01 09:32] LABS: ALB/GLOB RATIO 0.9 (1.0-2.1); ALT/SGPT 41 U/L (9-52); AST/SGOT 32 U/L (14-36); BLOOD UREA NITROGEN 15 mg/dL (7-17); CALCIUM 8.6 mg/dl (8.6-10.4); GFR AFRICAN-AMERICAN > 60; GFR NON-AFRICAN AMERICAN > 60
[2017-07-01] MEDS: Pantoprazole 40 mg EC Tab PO SCH (10:36)
[2017-07-01] MEDS: Calcium-Vit D 500 mg-200 Units Tab UD PO SCH (10:37)
[2017-07-01] MEDS: Mupirocin 2% Ointment (NASAL) NAS SCH ×2 (14:03→18:46)
[2017-07-01] MEDS: Digoxin 125 mcg (0.125 mg) Tab PO SCH (18:46)
[2017-07-01] MEDS: SILDENAFIL 20 MG PO SCH (18:46)
--- NOTE | 2017-07-01 23:21 | CP.PCM.PN ---
Subjective - Date & Time of Evaluation Date of Evaluation: 07/01/17 Time of Evaluation: 19:00 - Subjective Subjective: pt is improving, on oxygen, she needs [facility] as per family she has minimal support at home Objective - Vital Signs/Intake and Output Vital Signs (last 24 hours): Temp Pulse Resp BP Pulse Ox 98.0 F 110 H 20 103/70 96 07/01/17 16:33 07/01/17 16:33 07/01/17 20:38 07/01/17 16:33 07/01/17 16:33 Intake and Output: 07/01/17 07/02/17 18:59 06:59 Intake Total 480 Balance 480 - Medications Medications: Current Medications Apixaban (Eliquis) 5 mg PO BID [facility] Last Admin: 07/01/17 18:46 Dose: 5 mg Aspirin (Aspirin Chewable) 81 mg PO DAILY [facility] Last Admin: 07/01/17 10:36 Dose: 81 mg Calcium/Vitamin D (Oyster Shell Calcium/Vitamin D 500 Mg-200 Iu) 1 tab PO DAILY [facility] Last Admin: 07/01/17 10:37 Dose: 1 tab Clonazepam (Klonopin) 0.5 mg PO DAILY [facility] Last Admin: 07/01/17 10:41 Dose: 0.5 mg Digoxin (Digoxin) 0.125 mg PO 1800 [facility] Last Admin: 07/01/17 18:46 Dose: 0.125 mg Diltiazem HCl (Cardizem) 30 mg PO QID [facility] Last Admin: 07/01/17 22:24 Dose: 30 mg Docusate Sodium (Colace) 100 mg PO TID [facility] Last Admin: 07/01/17 18:46 Dose: 100 mg Furosemide (Lasix) 40 mg IVP DAILY [facility] Home Med (Patient's Own Medication) 1 tab PO TID [facility] Last Admin: 07/01/17 18:46 Dose: 1 tab Mupirocin (Bactroban 2% Nasal) 0.5 gm AKIRA BID [facility] Last Admin: 07/01/17 18:46 Dose: 0.5 gm Oxycodone/Acetaminophen (Percocet 5/325 Mg Tab) 1 tab PO Q6H PRN PRN Reason: Pain, severe (8-10) Stop: 07/02/17 16:10 Pantoprazole Sodium (Protonix Ec Tab) 40 mg PO DAILY [facility] Last Admin: 07/01/17 10:36 Dose: 40 mg - Labs Labs: 06/29/17 07:55 07/01/17 09:07 PT 12.1 SECONDS (9.7-12.2) 06/21/17 00:12 INR 1.1 06/21/17 00:12 APTT 105 SECONDS (21-34) H* D 06/21/17 06:24 - Constitutional Appears: No Acute Distress - Eye Exam Eye Exam: EOMI, Normal appearance, PERRL Pupil Exam: NORMAL ACCOMODATION, PERRL - ENT Exam ENT Exam: Mucous Membranes Moist, Normal Exam - Respiratory Exam Respiratory Exam: Clear to Ausculation Bilateral, NORMAL BREATHING PATTERN - Cardiovascular Exam Cardiovascular Exam: REGULAR RHYTHM, +S1, +S2. absent: Murmur - GI/Abdominal Exam GI & Abdominal Exam: Soft, Normal Bowel Sounds. absent: Tenderness Assessment and Plan (1) DVT prophylaxis Status: Acute (2) HTN (hypertension) Status: Acute (3) PHT (pulmonary hypertension) Status: Acute (4) CAD (coronary artery disease) Status: Chronic (5) Pulmonary HTN Status: Chronic (6) Rheumatoid arthritis Status: Chronic
[2017-07-02 10:00] LABS: ALB/GLOB RATIO 0.9 (1.0-2.1); ALBUMIN 3.2 g/dL (3.5-5.0); ALT/SGPT 41 U/L (9-52); AST/SGOT 41 U/L (14-36); BLOOD UREA NITROGEN 15 mg/dL (7-17); CALCIUM 8.4 mg/dl (8.6-10.4); GFR AFRICAN-AMERICAN > 60; GFR NON-AFRICAN AMERICAN > 60
[2017-07-02] MEDS: Pantoprazole 40 mg EC Tab PO SCH (10:22)
[2017-07-02] MEDS: Calcium-Vit D 500 mg-200 Units Tab UD PO SCH (10:23)
[2017-07-02] MEDS: Mupirocin 2% Ointment (NASAL) NAS SCH ×2 (10:23→22:05)
[2017-07-02] MEDS: SILDENAFIL 20 MG PO SCH ×3 (10:24→18:08)
[2017-07-02] MEDS: Digoxin 125 mcg (0.125 mg) Tab PO SCH (18:08)
[2017-07-02] MEDS: Oxycodone/Acetaminophen 5/325 mg Tab PO PRN (19:36)
--- NOTE | 2017-07-02 23:17 | CP.PCM.PN ---
Subjective - Date & Time of Evaluation Date of Evaluation: 07/02/17 Time of Evaluation: 19:30 - Subjective Subjective: Pt seen and evaluated at bedside, pt developed resp distress with high PCO2 retention, pt responded well with BIPAP, oxygen, nebulizer, salmedrol Objective - Vital Signs/Intake and Output Vital Signs (last 24 hours): Temp Pulse Resp BP Pulse Ox 98.1 F 108 H 18 91/63 L 97 07/02/17 22:12 07/02/17 22:12 07/02/17 22:12 07/02/17 22:12 07/02/17 16:30 Intake and Output: 07/02/17 07/03/17 18:59 06:59 Intake Total 250 Output Total 200 Balance 50 - Medications Medications: Current Medications Apixaban (Eliquis) 5 mg PO BID [facility] Last Admin: 07/02/17 18:09 Dose: 5 mg Aspirin (Aspirin Chewable) 81 mg PO DAILY [facility] Last Admin: 07/02/17 10:23 Dose: 81 mg Calcium/Vitamin D (Oyster Shell Calcium/Vitamin D 500 Mg-200 Iu) 1 tab PO DAILY [facility] Last Admin: 07/02/17 10:23 Dose: 1 tab Clonazepam (Klonopin) 0.5 mg PO DAILY [facility] Last Admin: 07/02/17 10:23 Dose: 0.5 mg Digoxin (Digoxin) 0.125 mg PO 1800 [facility] Last Admin: 07/02/17 18:08 Dose: 0.125 mg Diltiazem HCl (Cardizem) 30 mg PO QID [facility] Last Admin: 07/02/17 22:03 Dose: 30 mg Docusate Sodium (Colace) 100 mg PO TID [facility] Last Admin: 07/02/17 18:09 Dose: 100 mg Furosemide (Lasix) 40 mg IVP DAILY [facility] Last Admin: 07/02/17 10:23 Dose: 40 mg Home Med (Patient's Own Medication) 1 tab PO TID [facility] Last Admin: 07/02/17 18:08 Dose: 1 tab Mupirocin (Bactroban 2% Nasal) 0.5 gm AKIRA BID [facility] Last Admin: 07/02/17 22:05 Dose: 0.5 gm Oxycodone/Acetaminophen (Percocet 5/325 Mg Tab) 1 tab PO Q6H PRN PRN Reason: Pain, moderate (4-7) Stop: 07/05/17 19:21 Last Admin: 07/02/17 19:36 Dose: 1 tab Pantoprazole Sodium (Protonix Ec Tab) 40 mg PO DAILY [facility] Last Admin: 07/02/17 10:22 Dose: 40 mg - Labs Labs: 06/29/17 07:55 07/02/17 09:36 PT 12.1 SECONDS (9.7-12.2) 06/21/17 00:12 INR 1.1 06/21/17 00:12 APTT 105 SECONDS (21-34) H* D 06/21/17 06:24 - Constitutional Appears: No Acute Distress - Head Exam Head Exam: ATRAUMATIC, NORMAL INSPECTION, NORMOCEPHALIC - Eye Exam Eye Exam: EOMI, Normal appearance, PERRL Pupil Exam: NORMAL ACCOMODATION, PERRL - ENT Exam ENT Exam: Mucous Membranes Moist, Normal Exam - Respiratory Exam Respiratory Exam: Decreased Breath Sounds, Rales, Rhonchi - Cardiovascular Exam Cardiovascular Exam: REGULAR RHYTHM, +S1, +S2, Murmur - GI/Abdominal Exam GI & Abdominal Exam: Soft, Normal Bowel Sounds. absent: Tenderness Assessment and Plan (1) DVT prophylaxis Status: Acute (2) HTN (hypertension) Status: Acute (3) PHT (pulmonary hypertension) Status: Acute (4) CAD (coronary artery disease) Status: Chronic (5) Pulmonary HTN Status: Chronic (6) Rheumatoid arthritis Status: Chronic
[2017-07-03 09:41] LABS: BASO % 0.2 % (0.0-2.0); EOS % 0.1 % (0.0-4.0); HEMOGLOBIN 12.7 g/dL (11.0-16.0); LYMPH # 1.1 K/uL (1.0-4.3); LYMPH % 8.6 % (20.0-40.0); MEAN CELL VOLUME 92.3 fL (81.0-99.0); MEAN CORPUSCULAR HEMOGLOBIN 30.8 pg (27.0-31.0); MEAN CORPUSCULAR HGB CONC 33.3 g/dL (33.0-37.0); MEAN PLATELET VOLUME 9.3 fL (7.2-11.7); MONO # 1.4 K/uL (0.0-0.8); MONO % 10.6 % (0.0-10.0); NEUT # 10.7 K/uL (1.8-7.0); NEUT % 80.5 % (50.0-75.0); PLATELET COUNT 225 K/uL (130-400); RBC 4.13 Mil/uL (3.80-5.20); RED CELL DISTRIBUTION WIDTH 15.3 % (11.5-14.5)
[2017-07-03 09:42] LABS: WHITE BLOOD COUNT 13.2 K/uL (4.8-10.8)
[2017-07-03 10:11] LABS: ALB/GLOB RATIO 0.9 (1.0-2.1); ALBUMIN 3.3 g/dL (3.5-5.0); ALT/SGPT 41 U/L (9-52); AST/SGOT 40 U/L (14-36); BLOOD UREA NITROGEN 24 mg/dL (7-17); CALCIUM 9.1 mg/dl (8.6-10.4); GFR AFRICAN-AMERICAN > 60; GFR NON-AFRICAN AMERICAN > 60
[2017-07-03 10:19] LABS: B-TYPE NATRIURETIC PEPTIDE 6720 pg/mL (0-900)
[2017-07-03 10:23] LABS: ANISOCYTOSIS SLIGHT; LYMPHOCYTE 9 % (20-40); MONOCYTE 7 % (0-10); NEUTROPHIL 84 % (50-75); PLATELET ESTIMATE NORMAL (NORMAL); TOTAL CELLS COUNTED 100
[2017-07-03] MEDS: Pantoprazole 40 mg EC Tab PO SCH (10:30)
[2017-07-03] MEDS: Mupirocin 2% Ointment (NASAL) NAS SCH ×2 (10:30→21:26)
[2017-07-03] MEDS: Calcium-Vit D 500 mg-200 Units Tab UD PO SCH (10:31)
[2017-07-03] MEDS: SILDENAFIL 20 MG PO SCH ×4 (10:32→18:03)
--- NOTE | 2017-07-03 10:43 | CP.PCM.PN ---
Subjective - Date & Time of Evaluation Date of Evaluation: 07/03/17 Time of Evaluation: 19:00 Objective - Vital Signs/Intake and Output Vital Signs (last 24 hours): Temp Pulse Resp BP Pulse Ox 97.7 F 100 H 20 96/61 L 100 07/03/17 07:00 07/03/17 07:00 07/03/17 07:15 07/03/17 10:33 07/03/17 07:00 Intake and Output: 07/03/17 07/03/17 06:59 18:59 Intake Total 250 Output Total 200 Balance 50 - Medications Medications: Current Medications Apixaban (Eliquis) 5 mg PO BID [facility] Last Admin: 07/03/17 10:31 Dose: 5 mg Aspirin (Aspirin Chewable) 81 mg PO DAILY [facility] Last Admin: 07/03/17 10:31 Dose: 81 mg Calcium/Vitamin D (Oyster Shell Calcium/Vitamin D 500 Mg-200 Iu) 1 tab PO DAILY [facility] Last Admin: 07/03/17 10:31 Dose: 1 tab Clonazepam (Klonopin) 0.5 mg PO DAILY [facility] Last Admin: 07/03/17 10:30 Dose: 0.5 mg Digoxin (Digoxin) 0.125 mg PO 1800 [facility] Last Admin: 07/02/17 18:08 Dose: 0.125 mg Diltiazem HCl (Cardizem) 30 mg PO QID [facility] Last Admin: 07/03/17 10:33 Dose: Not Given Docusate Sodium (Colace) 100 mg PO TID [facility] Last Admin: 07/03/17 10:31 Dose: 100 mg Furosemide (Lasix) 40 mg IVP DAILY [facility] Last Admin: 07/03/17 10:33 Dose: Not Given Home Med (Patient's Own Medication) 1 tab PO TID [facility] Last Admin: 07/03/17 10:37 Dose: Not Given Mupirocin (Bactroban 2% Nasal) 0.5 gm AKIRA BID [facility] Last Admin: 07/02/17 22:05 Dose: 0.5 gm Oxycodone/Acetaminophen (Percocet 5/325 Mg Tab) 1 tab PO Q6H PRN PRN Reason: Pain, moderate (4-7) Stop: 07/05/17 19:21 Last Admin: 07/02/17 19:36 Dose: 1 tab Pantoprazole Sodium (Protonix Ec Tab) 40 mg PO DAILY [facility] Last Admin: 07/03/17 10:30 Dose: 40 mg - Labs Labs: 07/03/17 09:28 07/03/17 09:28 PT 12.1 SECONDS (9.7-12.2) 06/21/17 00:12 INR 1.1 06/21/17 00:12 APTT 105 SECONDS (21-34) H* D 06/21/17 06:24 Assessment and Plan (1) DVT prophylaxis Status: Acute (2) HTN (hypertension) Status: Acute (3) PHT (pulmonary hypertension) Status: Acute (4) CAD (coronary artery disease) Status: Chronic (5) Pulmonary HTN Status: Chronic (6) Rheumatoid arthritis Status: Chronic
--- NOTE | 2017-07-03 12:50 | RAD ---
HISTORY: Leukocytosis, worsening dyspnea, r/o PNA COMPARISON: Chest x-ray performed 06/21/17 TECHNIQUE: Chest, one view. FINDINGS: LUNGS: Increased lucencies especially within the bilateral upper lung calle compatible with underlying emphysema. Increased interstitial markings. Retrocardiac opacity may reflect infection or pneumonia. Small left pleural effusion. Right hilar prominence. No definite pneumothorax. Please note that chest x-ray has limited sensitivity for the detection of pulmonary masses. CARDIOVASCULAR: Cardiomegaly. Atherosclerotic calcifications. OSSEOUS STRUCTURES: Osseous demineralization. Degenerative changes. High-riding bilateral humeral heads may reflect chronic rotator cuff injuries. VISUALIZED UPPER ABDOMEN: Unremarkable. OTHER FINDINGS: None. IMPRESSION: Emphysematous changes. Increased interstitial markings. Retrocardiac opacity may reflect infection or pneumonia. Right hilar prominence. Small left pleural effusion. Cardiomegaly.
[2017-07-03 14:22] LABS: SQUAMOUS EPITHIAL < 1 /hpf (0-5); URINE AMORPHOUS SEDIMENT RARE /ul (<OCC); URINE BACTERIA MANY (<OCC); URINE BILIRUBIN NEGATIVE (NEGATIVE); URINE BLOOD NEGATIVE (NEGATIVE); URINE CLARITY Hazy (Clear); URINE COLOR Amber (YELLOW); URINE GLUCOSE (UA) NORMAL (Normal); URINE LEUKOCYTE ESTERASE NEG Leu/uL (Negative); URINE NITRATE POSITIVE (NEGATIVE); URINE PROTEIN 1+ mg/dL (NEGATIVE)
--- NOTE | 2017-07-03 15:39 | CP.PCM.PN ---
<Nereida Coughlin - Last Filed: 07/03/17 15:33> Subjective - Date & Time of Evaluation Date of Evaluation: 07/03/17 Time of Evaluation: 15:35 - Subjective Subjective: Cardiology Progress Note for Dr. Logan Patient seen and examined at bedside. Patient reports blurry vision and experiencing more dyspnea in the past 24 hours. Brother is present at bedside. Objective - Vital Signs/Intake and Output Vital Signs (last 24 hours): Temp Pulse Resp BP Pulse Ox 97.7 F 100 H 20 96/61 L 100 07/03/17 07:00 07/03/17 07:00 07/03/17 07:15 07/03/17 10:33 07/03/17 07:00 Intake and Output: 07/03/17 07/03/17 06:59 18:59 Intake Total 250 Output Total 200 Balance 50 - Medications Medications: Current Medications Apixaban (Eliquis) 5 mg PO BID [facility] Last Admin: 07/03/17 10:31 Dose: 5 mg Aspirin (Aspirin Chewable) 81 mg PO DAILY [facility] Last Admin: 07/03/17 10:31 Dose: 81 mg Calcium/Vitamin D (Oyster Shell Calcium/Vitamin D 500 Mg-200 Iu) 1 tab PO DAILY [facility] Last Admin: 07/03/17 10:31 Dose: 1 tab Clonazepam (Klonopin) 0.5 mg PO DAILY [facility] Last Admin: 07/03/17 10:30 Dose: 0.5 mg Digoxin (Digoxin) 0.125 mg PO 1800 [facility] Last Admin: 07/02/17 18:08 Dose: 0.125 mg Diltiazem HCl (Cardizem) 30 mg PO QID [facility] Last Admin: 07/03/17 14:21 Dose: 30 mg Docusate Sodium (Colace) 100 mg PO TID [facility] Last Admin: 07/03/17 14:21 Dose: 100 mg Furosemide (Lasix) 40 mg IVP DAILY [facility] Last Admin: 07/03/17 10:33 Dose: Not Given Home Med (Patient's Own Medication) 1 tab PO TID [facility] Last Admin: 07/03/17 14:21 Dose: Not Given Ceftriaxone Sodium 1 gm/ (Sodium Chloride) 100 mls @ 200 mls/hr IVPB Q24H [facility] Last Admin: 07/03/17 14:07 Dose: 200 mls/hr Mupirocin (Bactroban 2% Nasal) 0.5 gm AKIRA BID [facility] Last Admin: 07/03/17 10:30 Dose: Not Given Oxycodone/Acetaminophen (Percocet 5/325 Mg Tab) 1 tab PO Q6H PRN PRN Reason: Pain, moderate (4-7) Stop: 07/05/17 19:21 Last Admin: 07/02/17 19:36 Dose: 1 tab Pantoprazole Sodium (Protonix Ec Tab) 40 mg PO DAILY [facility] Last Admin: 07/03/17 10:30 Dose: 40 mg - Labs Labs: 07/03/17 09:28 07/03/17 09:28 PT 12.1 SECONDS (9.7-12.2) 06/21/17 00:12 INR 1.1 06/21/17 00:12 APTT 105 SECONDS (21-34) H* D 06/21/17 06:24 - Constitutional Appears: Cachectic, Chronically Ill, Other (unwell) - Head Exam Head Exam: ATRAUMATIC, NORMOCEPHALIC - Eye Exam Eye Exam: EOMI, Normal appearance, PERRL - ENT Exam ENT Exam: Mucous Membranes Moist, Normal Oropharynx - Neck Exam Additional comments: JVD present - Respiratory Exam Respiratory Exam: Accessory Muscle Use, Decreased Breath Sounds, Respiratory Distress Additional comments: tachypnea - Cardiovascular Exam Cardiovascular Exam: Tachycardia - GI/Abdominal Exam GI & Abdominal Exam: Soft, Normal Bowel Sounds. absent: Rigid, Rebound - Extremities Exam Extremities Exam: absent: Calf Tenderness - Back Exam Back Exam: NORMAL INSPECTION. absent: CVA tenderness (L), CVA tenderness (R) - Neurological Exam Neurological Exam: Alert, Awake, CN II-XII Intact - Psychiatric Exam Psychiatric exam: Normal Affect, Normal Mood <Steven Logan - Last Filed: 07/03/17 18:33> Objective - Vital Signs/Intake and Output Vital Signs (last 24 hours): Temp Pulse Resp BP Pulse Ox 99.7 F H 125 H 18 102/70 96 07/03/17 15:00 07/03/17 15:00 07/03/17 18:23 07/03/17 15:00 07/03/17 15:00 Intake and Output: 07/03/17 07/03/17 06:59 18:59 Intake Total 250 Output Total 200 Balance 50 - Medications Medications: Current Medications Apixaban (Eliquis) 5 mg PO BID [facility] Last Admin: 07/03/17 18:02 Dose: 5 mg Aspirin (Aspirin Chewable) 81 mg PO DAILY [facility] Last Admin: 07/03/17 10:31 Dose: 81 mg Calcium/Vitamin D (Oyster Shell Calcium/Vitamin D 500 Mg-200 Iu) 1 tab PO DAILY [facility] Last Admin: 07/03/17 10:31 Dose: 1 tab Clonazepam (Klonopin) 0.5 mg PO Q24H [facility] Digoxin (Digoxin) 0.125 mg PO 1800 [facility] Last Admin: 07/03/17 18:02 Dose: 0.125 mg Diltiazem HCl (Cardizem) 30 mg PO QID [facility] Last Admin: 07/03/17 18:02 Dose: 30 mg Docusate Sodium (Colace) 100 mg PO TID [facility] Last Admin: 07/03/17 18:02 Dose: 100 mg Furosemide (Lasix) 40 mg IVP DAILY [facility] Last Admin: 07/03/17 10:33 Dose: Not Given Home Med (Patient's Own Medication) 1 tab PO TID [facility] Last Admin: 07/03/17 18:03 Dose: 1 tab Ceftriaxone Sodium 1 gm/ (Sodium Chloride) 100 mls @ 200 mls/hr IVPB Q24H [facility] Last Admin: 07/03/17 14:07 Dose: 200 mls/hr Mupirocin (Bactroban 2% Nasal) 0.5 gm AKIRA BID [facility] Last Admin: 07/03/17 10:30 Dose: Not Given Oxycodone/Acetaminophen (Percocet 5/325 Mg Tab) 1 tab PO Q6H PRN PRN Reason: Pain, moderate (4-7) Stop: 07/05/17 19:21 Last Admin: 07/02/17 19:36 Dose: 1 tab Pantoprazole Sodium (Protonix Ec Tab) 40 mg PO DAILY [facility] Last Admin: 07/03/17 10:30 Dose: 40 mg - Labs Labs: 07/03/17 09:28 07/03/17 09:28 PT 12.1 SECONDS (9.7-12.2) 06/21/17 00:12 INR 1.1 06/21/17 00:12 APTT 105 SECONDS (21-34) H* D 06/21/17 06:24 Assessment and Plan (1) CHF (congestive heart failure) Assessment & Plan: cor pulmonale cont intermittent diuretics cont digoxin BNP 6720 change lasix to bid Status: Acute (2) Chest pain Assessment & Plan: 2' to PE cont eliquis 2' to PE Status: Acute (3) HTN (hypertension) Status: Acute (4) Pulmonary emboli Status: Acute (5) Respiratory failure Status: Acute (6) Anemia Status: Chronic (7) Pulmonary HTN Status: Chronic (8) RA (rheumatoid arthritis) Status: Chronic
[2017-07-03] MEDS: Digoxin 125 mcg (0.125 mg) Tab PO SCH (18:02)
[2017-07-04 07:57] LABS: BASO % 0.3 % (0.0-2.0); EOS % 0.2 % (0.0-4.0); LYMPH # 1.2 K/uL (1.0-4.3); LYMPH % 12.1 % (20.0-40.0); MEAN CELL VOLUME 91.4 fL (81.0-99.0); MEAN CORPUSCULAR HEMOGLOBIN 31.5 pg (27.0-31.0); MEAN CORPUSCULAR HGB CONC 34.4 g/dL (33.0-37.0); MEAN PLATELET VOLUME 9.6 fL (7.2-11.7); MONO # 1.2 K/uL (0.0-0.8); MONO % 12.4 % (0.0-10.0); NEUT # 7.6 K/uL (1.8-7.0); RBC 3.8 Mil/uL (3.80-5.20); RED CELL DISTRIBUTION WIDTH 15.4 % (11.5-14.5); WHITE BLOOD COUNT 10.1 K/uL (4.8-10.8)
[2017-07-04 08:23] LABS: ALB/GLOB RATIO 0.8 (1.0-2.1); ALT/SGPT 43 U/L (9-52); AST/SGOT 32 U/L (14-36); BLOOD UREA NITROGEN 14 mg/dL (7-17); CALCIUM 8.3 mg/dl (8.6-10.4); GFR AFRICAN-AMERICAN > 60; GFR NON-AFRICAN AMERICAN > 60
[2017-07-04] MEDS: Pantoprazole 40 mg EC Tab PO SCH (10:30)
[2017-07-04] MEDS: Calcium-Vit D 500 mg-200 Units Tab UD PO SCH (10:30)
[2017-07-04] MEDS: SILDENAFIL 20 MG PO SCH ×3 (10:31→18:27)
[2017-07-04] MEDS: Mupirocin 2% Ointment (NASAL) NAS SCH ×2 (12:07→18:28)
--- NOTE | 2017-07-04 14:03 | CP.PCM.PN ---
<Nereida Coughlin - Last Filed: 07/04/17 15:41> Subjective - Date & Time of Evaluation Date of Evaluation: 07/04/17 Time of Evaluation: 10:55 - Subjective Subjective: Patient seen and examined at bedside. Patient reports improvement in breathing since starting Sildenafil. Patient denies chest pain, dyspnea, or palpitations. Patient reports no visual disturbances or blurry vision. Objective - Vital Signs/Intake and Output Vital Signs (last 24 hours): Temp Pulse Resp BP Pulse Ox 97.4 F L 91 H 20 99/60 L 98 07/04/17 07:00 07/04/17 07:00 07/04/17 09:32 07/04/17 10:31 07/04/17 07:00 Intake and Output: 07/04/17 07/04/17 06:59 18:59 Intake Total 100 Output Total 600 Balance -500 - Medications Medications: Current Medications Apixaban (Eliquis) 5 mg PO BID [facility] Last Admin: 07/04/17 10:30 Dose: 5 mg Aspirin (Aspirin Chewable) 81 mg PO DAILY [facility] Last Admin: 07/04/17 10:30 Dose: 81 mg Calcium/Vitamin D (Oyster Shell Calcium/Vitamin D 500 Mg-200 Iu) 1 tab PO DAILY [facility] Last Admin: 07/04/17 10:30 Dose: 1 tab Clonazepam (Klonopin) 0.5 mg PO Q24H [facility] Last Admin: 07/03/17 21:27 Dose: 0.5 mg Digoxin (Digoxin) 0.125 mg PO 1800 [facility] Last Admin: 07/03/17 18:02 Dose: 0.125 mg Diltiazem HCl (Cardizem) 30 mg PO QID [facility] Last Admin: 07/04/17 10:31 Dose: 30 mg Docusate Sodium (Colace) 100 mg PO TID [facility] Last Admin: 07/04/17 10:30 Dose: 100 mg Furosemide (Lasix) 40 mg IVP DAILY [facility] Last Admin: 07/04/17 10:31 Dose: Not Given Home Med (Patient's Own Medication) 1 tab PO TID [facility] Last Admin: 07/04/17 10:31 Dose: Not Given Ceftriaxone Sodium 1 gm/ (Sodium Chloride) 100 mls @ 200 mls/hr IVPB Q24H [facility] Last Admin: 07/04/17 12:07 Dose: 200 mls/hr Mupirocin (Bactroban 2% Nasal) 0.5 gm AKIRA BID [facility] Last Admin: 07/04/17 12:07 Dose: 0.5 gm Oxycodone/Acetaminophen (Percocet 5/325 Mg Tab) 1 tab PO Q6H PRN PRN Reason: Pain, moderate (4-7) Stop: 07/05/17 19:21 Last Admin: 07/02/17 19:36 Dose: 1 tab Pantoprazole Sodium (Protonix Ec Tab) 40 mg PO DAILY [facility] Last Admin: 07/04/17 10:30 Dose: 40 mg - Labs Labs: 07/04/17 07:45 07/04/17 07:45 PT 12.1 SECONDS (9.7-12.2) 06/21/17 00:12 INR 1.1 06/21/17 00:12 APTT 105 SECONDS (21-34) H* D 06/21/17 06:24 - Constitutional Appears: Non-toxic, No Acute Distress - Head Exam Head Exam: ATRAUMATIC, NORMOCEPHALIC - Eye Exam Eye Exam: EOMI, Normal appearance - ENT Exam ENT Exam: Mucous Membranes Moist - Neck Exam Neck Exam: Normal Inspection - Respiratory Exam Respiratory Exam: Clear to Ausculation Bilateral, NORMAL BREATHING PATTERN. absent: Accessory Muscle Use - Cardiovascular Exam Cardiovascular Exam: RRR, +S1, +S2 - GI/Abdominal Exam GI & Abdominal Exam: Soft, Normal Bowel Sounds. absent: Guarding, Rebound - Extremities Exam Extremities Exam: Normal Inspection - Back Exam Back Exam: NORMAL INSPECTION. absent: CVA tenderness (L), CVA tenderness (R) - Neurological Exam Neurological Exam: Alert, Awake, Oriented x3 - Psychiatric Exam Psychiatric exam: Normal Affect, Normal Mood - Skin Skin Exam: Dry, Intact, Normal Color, Warm Assessment and Plan - Assessment and Plan (Free Text) Assessment: 57 year old female with advanced rheumatoid arthritis, immobility/bed-bound for 6 past months, and a prior history of PE who is status post EKOS thrombolysis with catheter directed tPA administration and systemic heparin. Currently, patient is on telemetry on high flow nasal oxygen. 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 - Eliquis 5 mg BID - High flow humidified oxygen via Nasal Cannula - Digoxin 0.125 mg PO daily - Furosemide 40 mg IVP BID - Sildenafil 20 mg TID - Clonazepam 0.5 q24h HS 2) Rheumatoid Arthritis - Percocet 5 mg q6h PRN 3) Constipation - Colace 100 mg TID 4) UTI - Ceftriaxone 1 gm 24h 5) GI/DVT prophylaxis - Pantoprazole 40 mg PO daily - Sequential Compression Device -Continue with Ca supplements and Ensure Disposition: Case discussed with social work, case management, and daughter Radha. Case discussed with attending physician, Dr. Logan. <Steven Logan - Last Filed: 07/05/17 00:20> Objective - Vital Signs/Intake and Output Vital Signs (last 24 hours): Temp Pulse Resp BP Pulse Ox 98.8 F 110 H 18 113/76 95 07/04/17 15:00 07/04/17 15:00 07/04/17 23:46 07/04/17 18:27 07/04/17 15:00 Intake and Output: 07/04/17 07/05/17 18:59 06:59 Intake Total 780 Balance 780 - Medications Medications: Current Medications Apixaban (Eliquis) 5 mg PO BID [facility] Last Admin: 07/04/17 18:27 Dose: 5 mg Aspirin (Aspirin Chewable) 81 mg PO DAILY [facility] Last Admin: 07/04/17 10:30 Dose: 81 mg Calcium/Vitamin D (Oyster Shell Calcium/Vitamin D 500 Mg-200 Iu) 1 tab PO DAILY [facility] Last Admin: 07/04/17 10:30 Dose: 1 tab Clonazepam (Klonopin) 0.5 mg PO Q24H [facility] Last Admin: 07/04/17 21:16 Dose: 0.5 mg Digoxin (Digoxin) 0.125 mg PO 1800 [facility] Last Admin: 07/04/17 18:27 Dose: 0.125 mg Diltiazem HCl (Cardizem) 30 mg PO QID [facility] Last Admin: 07/04/17 21:15 Dose: Not Given Docusate Sodium (Colace) 100 mg PO TID [facility] Last Admin: 07/04/17 18:27 Dose: 100 mg Furosemide (Lasix) 40 mg IVP BID [facility] Last Admin: 07/04/17 18:27 Dose: 40 mg Home Med (Patient's Own Medication) 1 tab PO TID [facility] Last Admin: 07/04/17 18:27 Dose: 1 tab Ceftriaxone Sodium 1 gm/ (Sodium Chloride) 100 mls @ 200 mls/hr IVPB Q24H [facility] Last Admin: 07/04/17 12:07 Dose: 200 mls/hr Mupirocin (Bactroban 2% Nasal) 0.5 gm AKIRA BID [facility] Last Admin: 07/04/17 18:28 Dose: 0.5 gm Oxycodone/Acetaminophen (Percocet 5/325 Mg Tab) 1 tab PO Q6H PRN PRN Reason: Pain, moderate (4-7) Stop: 07/05/17 19:21 Last Admin: 07/04/17 20:28 Dose: 1 tab Pantoprazole Sodium (Protonix Ec Tab) 40 mg PO DAILY [facility] Last Admin: 07/04/17 10:30 Dose: 40 mg - Labs Labs: 07/04/17 07:45 07/04/17 07:45 PT 12.1 SECONDS (9.7-12.2) 06/21/17 00:12 INR 1.1 06/21/17 00:12 APTT 105 SECONDS (21-34) H* D 06/21/17 06:24 Assessment and Plan (1) CHF (congestive heart failure) Status: Acute (2) Chest pain Status: Acute (3) HTN (hypertension) Status: Acute (4) Pulmonary emboli Status: Acute (5) Respiratory failure Status: Acute (6) Anemia Status: Chronic (7) Pulmonary HTN Status: Chronic (8) RA (rheumatoid arthritis) Status: Chronic Attending/Attestation - Attestation I have personally seen and examined this patient.: Yes I have fully participated in the care of the patient.: Yes I have reviewed all pertinent clinical information, including history, physical exam and plan: Yes Notes (Text): 07/05/17 00:18 patient meds are maximally titrated clinically I dont anticipate much improvement will need placment home vs. rehab soon
[2017-07-04] MEDS: Digoxin 125 mcg (0.125 mg) Tab PO SCH (18:27)
[2017-07-04] MEDS: Oxycodone/Acetaminophen 5/325 mg Tab PO PRN (20:28)
--- NOTE | 2017-07-04 23:03 | CP.PCM.PN ---
Subjective - Date & Time of Evaluation Date of Evaluation: 07/04/17 Time of Evaluation: 17:25 - Subjective Subjective: Pt seen and examined, is doing well, less short of breath, on oxygen Objective - Vital Signs/Intake and Output Vital Signs (last 24 hours): Temp Pulse Resp BP Pulse Ox 98.8 F 110 H 20 113/76 95 07/04/17 15:00 07/04/17 15:00 07/04/17 20:50 07/04/17 18:27 07/04/17 15:00 Intake and Output: 07/04/17 07/05/17 18:59 06:59 Intake Total 780 Balance 780 - Medications Medications: Current Medications Apixaban (Eliquis) 5 mg PO BID [facility] Last Admin: 07/04/17 18:27 Dose: 5 mg Aspirin (Aspirin Chewable) 81 mg PO DAILY [facility] Last Admin: 07/04/17 10:30 Dose: 81 mg Calcium/Vitamin D (Oyster Shell Calcium/Vitamin D 500 Mg-200 Iu) 1 tab PO DAILY [facility] Last Admin: 07/04/17 10:30 Dose: 1 tab Clonazepam (Klonopin) 0.5 mg PO Q24H [facility] Last Admin: 07/04/17 21:16 Dose: 0.5 mg Digoxin (Digoxin) 0.125 mg PO 1800 [facility] Last Admin: 07/04/17 18:27 Dose: 0.125 mg Diltiazem HCl (Cardizem) 30 mg PO QID [facility] Last Admin: 07/04/17 21:15 Dose: Not Given Docusate Sodium (Colace) 100 mg PO TID [facility] Last Admin: 07/04/17 18:27 Dose: 100 mg Furosemide (Lasix) 40 mg IVP BID [facility] Last Admin: 07/04/17 18:27 Dose: 40 mg Home Med (Patient's Own Medication) 1 tab PO TID [facility] Last Admin: 07/04/17 18:27 Dose: 1 tab Ceftriaxone Sodium 1 gm/ (Sodium Chloride) 100 mls @ 200 mls/hr IVPB Q24H [facility] Last Admin: 07/04/17 12:07 Dose: 200 mls/hr Mupirocin (Bactroban 2% Nasal) 0.5 gm AKIRA BID [facility] Last Admin: 07/04/17 18:28 Dose: 0.5 gm Oxycodone/Acetaminophen (Percocet 5/325 Mg Tab) 1 tab PO Q6H PRN PRN Reason: Pain, moderate (4-7) Stop: 07/05/17 19:21 Last Admin: 07/04/17 20:28 Dose: 1 tab Pantoprazole Sodium (Protonix Ec Tab) 40 mg PO DAILY [facility] Last Admin: 07/04/17 10:30 Dose: 40 mg - Labs Labs: 07/04/17 07:45 07/04/17 07:45 PT 12.1 SECONDS (9.7-12.2) 06/21/17 00:12 INR 1.1 06/21/17 00:12 APTT 105 SECONDS (21-34) H* D 06/21/17 06:24 - Constitutional Appears: No Acute Distress - Head Exam Head Exam: ATRAUMATIC, NORMAL INSPECTION, NORMOCEPHALIC - Eye Exam Eye Exam: EOMI, Normal appearance, PERRL Pupil Exam: NORMAL ACCOMODATION, PERRL - Respiratory Exam Respiratory Exam: Decreased Breath Sounds, Rales, Rhonchi - Cardiovascular Exam Cardiovascular Exam: REGULAR RHYTHM, +S1, +S2. absent: Murmur - GI/Abdominal Exam GI & Abdominal Exam: Soft, Normal Bowel Sounds. absent: Tenderness Assessment and Plan (1) DVT prophylaxis Status: Acute (2) HTN (hypertension) Status: Acute (3) PHT (pulmonary hypertension) Status: Acute (4) CAD (coronary artery disease) Status: Chronic (5) Pulmonary HTN Status: Chronic (6) Rheumatoid arthritis Status: Chronic
[2017-07-05 07:28] LABS: BASO % 0.4 % (0.0-2.0); EOS # 0.1 K/uL (0.0-0.7); EOS % 1.5 % (0.0-4.0); HEMOGLOBIN 11.3 g/dL (11.0-16.0); LYMPH # 1.2 K/uL (1.0-4.3); LYMPH % 23.3 % (20.0-40.0); MEAN CORPUSCULAR HEMOGLOBIN 31.4 pg (27.0-31.0); MEAN CORPUSCULAR HGB CONC 34.2 g/dL (33.0-37.0); MEAN PLATELET VOLUME 9.7 fL (7.2-11.7); MONO % 19.1 % (0.0-10.0); NEUT # 2.9 K/uL (1.8-7.0); NEUT % 55.7 % (50.0-75.0); NRBC % 0.1 % (0.0-2.0); RBC 3.6 Mil/uL (3.80-5.20); RED CELL DISTRIBUTION WIDTH 15.4 % (11.5-14.5); WHITE BLOOD COUNT 5.3 K/uL (4.8-10.8)
[2017-07-05 07:31] LABS: ALB/GLOB RATIO 0.9 (1.0-2.1); ALBUMIN 3.1 g/dL (3.5-5.0); ALT/SGPT 35 U/L (9-52); AST/SGOT 31 U/L (14-36); BLOOD UREA NITROGEN 16 mg/dL (7-17); CALCIUM 8.2 mg/dl (8.6-10.4); GFR AFRICAN-AMERICAN > 60; GFR NON-AFRICAN AMERICAN > 60
[2017-07-05] MEDS: Pantoprazole 40 mg EC Tab PO SCH (09:44)
[2017-07-05] MEDS: Calcium-Vit D 500 mg-200 Units Tab UD PO SCH (09:45)
[2017-07-05] MEDS ORDERED: Potassium Chloride 20 mEq ER Tab PO ONE (10:00)
[2017-07-05] MEDS: SILDENAFIL 20 MG PO SCH ×3 (10:34→17:20)
[2017-07-05] MEDS: Mupirocin 2% Ointment (NASAL) NAS SCH ×2 (10:35→17:21)
--- NOTE | 2017-07-05 11:22 | CP.PCM.PN ---
Subjective - Date & Time of Evaluation Date of Evaluation: 07/05/17 Time of Evaluation: 11:22 - Subjective Subjective: Nereida Ced DO, PGY-1 Patient seen and examined at bedside. Patient reports that she had back pain overnight that responded well to her PRN Percocet. Furthermore, she reports she had sleeping well and feeling well rested. Important to note, patient exhibits non-labored breathing and reports no dyspnea. Objective - Vital Signs/Intake and Output Vital Signs (last 24 hours): Temp Pulse Resp BP Pulse Ox 97.6 F 91 H 20 90/58 L 100 07/05/17 08:00 07/05/17 08:00 07/05/17 08:00 07/05/17 10:34 07/05/17 08:00 Intake and Output: 07/05/17 07/05/17 06:59 18:59 Output Total 400 Balance -400 - Medications Medications: Current Medications Apixaban (Eliquis) 5 mg PO BID [facility] Last Admin: 07/05/17 09:44 Dose: 5 mg Aspirin (Aspirin Chewable) 81 mg PO DAILY [facility] Last Admin: 07/05/17 09:44 Dose: 81 mg Calcium/Vitamin D (Oyster Shell Calcium/Vitamin D 500 Mg-200 Iu) 1 tab PO DAILY [facility] Last Admin: 07/05/17 09:45 Dose: 1 tab Clonazepam (Klonopin) 0.5 mg PO Q24H [facility] Last Admin: 07/04/17 21:16 Dose: 0.5 mg Digoxin (Digoxin) 0.125 mg PO 1800 [facility] Last Admin: 07/04/17 18:27 Dose: 0.125 mg Diltiazem HCl (Cardizem) 30 mg PO QID [facility] Last Admin: 07/05/17 10:34 Dose: Not Given Docusate Sodium (Colace) 100 mg PO TID [facility] Last Admin: 07/05/17 09:44 Dose: 100 mg Furosemide (Lasix) 40 mg IVP BID [facility] Last Admin: 07/05/17 10:34 Dose: Not Given Home Med (Patient's Own Medication) 1 tab PO TID [facility] Last Admin: 07/05/17 10:34 Dose: Not Given Ceftriaxone Sodium 1 gm/ (Sodium Chloride) 100 mls @ 200 mls/hr IVPB Q24H [facility] Last Admin: 07/05/17 10:35 Dose: 200 mls/hr Mupirocin (Bactroban 2% Nasal) 0.5 gm AKIRA BID [facility] Last Admin: 07/05/17 10:35 Dose: 0.5 gm Oxycodone/Acetaminophen (Percocet 5/325 Mg Tab) 1 tab PO Q6H PRN PRN Reason: Pain, moderate (4-7) Stop: 07/05/17 19:21 Last Admin: 07/04/17 20:28 Dose: 1 tab Pantoprazole Sodium (Protonix Ec Tab) 40 mg PO DAILY [facility] Last Admin: 07/05/17 09:44 Dose: 40 mg - Labs Labs: 07/05/17 07:01 07/05/17 06:59 PT 12.1 SECONDS (9.7-12.2) 06/21/17 00:12 INR 1.1 06/21/17 00:12 APTT 105 SECONDS (21-34) H* D 06/21/17 06:24 - Constitutional Appears: Well, Non-toxic - Head Exam Head Exam: ATRAUMATIC, NORMOCEPHALIC - Eye Exam Eye Exam: EOMI, Normal appearance - ENT Exam ENT Exam: Mucous Membranes Moist, Normal Oropharynx - Neck Exam Neck Exam: Normal Inspection - Respiratory Exam Respiratory Exam: Clear to Ausculation Bilateral, NORMAL BREATHING PATTERN Additional comments: respiratory rate of 24 - Cardiovascular Exam Cardiovascular Exam: RRR, +S1, +S2 - GI/Abdominal Exam GI & Abdominal Exam: Soft - Back Exam Back Exam: NORMAL INSPECTION - Neurological Exam Neurological Exam: Alert, Awake, Oriented x3 - Psychiatric Exam Psychiatric exam: Normal Affect, Normal Mood - Skin Skin Exam: Dry, Intact, Normal Color, Warm Assessment and Plan - Assessment and Plan (Free Text) Assessment: 57 year old female with advanced rheumatoid arthritis, immobility/bed-bound for 6 past months, and a prior history of PE who is status post EKOS thrombolysis with catheter directed tPA administration and systemic heparin. Currently, patient is on telemetry on high flow nasal oxygen. 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 - Eliquis 5 mg BID - High flow humidified oxygen via Nasal Cannula - Digoxin 0.125 mg PO daily - Furosemide 40 mg IVP BID - Sildenafil 20 mg TID - Clonazepam 0.5 q24h HS 2) Rheumatoid Arthritis - Percocet 5 mg q6h PRN 3) Constipation - Colace 100 mg TID 4) Leukocytosis: Trending down (13.2 to 10.1 to 5.3 today) empirically started on Ceftriaxone for UTI - Ceftriaxone 1 gm 24h Continue for at least 5 days 5) GI/DVT prophylaxis - Pantoprazole 40 mg PO daily - Sequential Compression Device -Continue with Ca supplements and Ensure Case discussed with attending physician, Dr. Logan.
--- NOTE | 2017-07-05 13:47 | CARD ---
APPROVED REPORT EKG Measurement Heart [id number] <Conclusion> Normal sinus rhythm Right ventricular hypertrophy with repolarization abnormality Abnormal ECG
[2017-07-05] MEDS: Digoxin 125 mcg (0.125 mg) Tab PO SCH (17:21)
--- NOTE | 2017-07-05 21:03 | CP.PCM.PN ---
Subjective - Date & Time of Evaluation Date of Evaluation: 07/05/17 Time of Evaluation: 16:00 - Subjective Subjective: pt at baseline sob resolved lytes showing volume contraction Objective - Vital Signs/Intake and Output Vital Signs (last 24 hours): Temp Pulse Resp BP Pulse Ox 97.5 F L 92 H 20 92/57 L 95 07/05/17 17:00 07/05/17 17:00 07/05/17 17:00 07/05/17 17:20 07/05/17 17:00 Intake and Output: 07/05/17 07/06/17 18:59 06:59 Intake Total 400 Output Total 400 Balance 0 - Medications Medications: Current Medications Apixaban (Eliquis) 5 mg PO BID [facility] Last Admin: 07/05/17 17:21 Dose: 5 mg Aspirin (Aspirin Chewable) 81 mg PO DAILY [facility] Last Admin: 07/05/17 09:44 Dose: 81 mg Calcium/Vitamin D (Oyster Shell Calcium/Vitamin D 500 Mg-200 Iu) 1 tab PO DAILY [facility] Last Admin: 07/05/17 09:45 Dose: 1 tab Clonazepam (Klonopin) 0.5 mg PO Q24H [facility] Last Admin: 07/04/17 21:16 Dose: 0.5 mg Digoxin (Digoxin) 0.125 mg PO 1800 [facility] Last Admin: 07/05/17 17:21 Dose: 0.125 mg Diltiazem HCl (Cardizem) 30 mg PO QID [facility] Last Admin: 07/05/17 17:21 Dose: 30 mg Docusate Sodium (Colace) 100 mg PO TID [facility] Last Admin: 07/05/17 17:20 Dose: 100 mg Furosemide (Lasix) 40 mg IVP BID [facility] Last Admin: 07/05/17 17:20 Dose: Not Given Home Med (Patient's Own Medication) 1 tab PO TID [facility] Last Admin: 07/05/17 17:20 Dose: Not Given Ceftriaxone Sodium 1 gm/ (Sodium Chloride) 100 mls @ 200 mls/hr IVPB Q24H [facility] Last Admin: 07/05/17 10:35 Dose: 200 mls/hr Mupirocin (Bactroban 2% Nasal) 0.5 gm AKIRA BID [facility] Last Admin: 07/05/17 17:21 Dose: 0.5 gm Pantoprazole Sodium (Protonix Ec Tab) 40 mg PO DAILY [facility] Last Admin: 07/05/17 09:44 Dose: 40 mg Potassium Chloride (K-Dur 20 Meq Er Tab) 20 meq PO DAILY [facility] - Labs Labs: 07/05/17 07:01 07/05/17 06:59 PT 12.1 SECONDS (9.7-12.2) 06/21/17 00:12 INR 1.1 06/21/17 00:12 APTT 105 SECONDS (21-34) H* D 06/21/17 06:24 - Constitutional Appears: Well - Head Exam Head Exam: ATRAUMATIC, NORMAL INSPECTION, NORMOCEPHALIC - Eye Exam Eye Exam: EOMI, Normal appearance, PERRL Pupil Exam: NORMAL ACCOMODATION, PERRL - ENT Exam ENT Exam: Mucous Membranes Dry, Normal Exam - Neck Exam Neck Exam: Full ROM, Normal Inspection. absent: Lymphadenopathy - Respiratory Exam Respiratory Exam: Clear to Ausculation Bilateral, NORMAL BREATHING PATTERN - Cardiovascular Exam Cardiovascular Exam: REGULAR RHYTHM, +S1, +S2, Murmur - GI/Abdominal Exam GI & Abdominal Exam: Soft, Normal Bowel Sounds. absent: Tenderness - Extremities Exam Extremities Exam: Normal Capillary Refill, Normal Inspection. absent: Joint Swelling, Pedal Edema - Back Exam Back Exam: NORMAL INSPECTION - Neurological Exam Neurological Exam: Alert, Awake, Oriented x3 - Psychiatric Exam Psychiatric exam: Normal Affect, Normal Mood - Skin Skin Exam: Dry, Intact, Normal Color, Warm Assessment and Plan (1) CHF (congestive heart failure) Assessment & Plan: dc lasix hypocholermic hyponatremia cont digoxin Status: Acute (2) Chest pain Status: Acute (3) Pulmonary emboli Status: Acute (4) Respiratory failure Assessment & Plan: stable on high flow Status: Acute (5) Anemia Assessment & Plan: H&H stable Status: Chronic (6) Pulmonary HTN Assessment & Plan: cont digoxin and sildenafil Status: Chronic (7) RA (rheumatoid arthritis) Status: Chronic
[2017-07-05] MEDS: Oxycodone/Acetaminophen 5/325 mg Tab PO PRN (21:43)
--- NOTE | 2017-07-05 22:44 | CP.PCM.PN ---
Subjective - Date & Time of Evaluation Date of Evaluation: 07/05/17 Time of Evaluation: 19:35 - Subjective Subjective: Pt seen and examined, is doing well, less short of breath, on oxygen, stable Objective - Vital Signs/Intake and Output Vital Signs (last 24 hours): Temp Pulse Resp BP Pulse Ox 97.5 F L 92 H 20 92/57 L 95 07/05/17 17:00 07/05/17 17:00 07/05/17 17:00 07/05/17 17:20 07/05/17 17:00 Intake and Output: 07/05/17 07/06/17 18:59 06:59 Intake Total 400 200 Output Total 400 Balance 0 200 - Medications Medications: Current Medications Apixaban (Eliquis) 5 mg PO BID [facility] Last Admin: 07/05/17 17:21 Dose: 5 mg Aspirin (Aspirin Chewable) 81 mg PO DAILY [facility] Last Admin: 07/05/17 09:44 Dose: 81 mg Calcium/Vitamin D (Oyster Shell Calcium/Vitamin D 500 Mg-200 Iu) 1 tab PO DAILY [facility] Last Admin: 07/05/17 09:45 Dose: 1 tab Clonazepam (Klonopin) 0.5 mg PO Q24H [facility] Last Admin: 07/05/17 21:23 Dose: 0.5 mg Digoxin (Digoxin) 0.125 mg PO 1800 [facility] Last Admin: 07/05/17 17:21 Dose: 0.125 mg Diltiazem HCl (Cardizem) 30 mg PO QID [facility] Last Admin: 07/05/17 21:22 Dose: 30 mg Docusate Sodium (Colace) 100 mg PO TID [facility] Last Admin: 07/05/17 17:20 Dose: 100 mg Furosemide (Lasix) 40 mg IVP BID [facility] Last Admin: 07/05/17 17:20 Dose: Not Given Home Med (Patient's Own Medication) 1 tab PO TID [facility] Last Admin: 07/05/17 17:20 Dose: Not Given Ceftriaxone Sodium 1 gm/ (Sodium Chloride) 100 mls @ 200 mls/hr IVPB Q24H [facility] Last Admin: 07/05/17 10:35 Dose: 200 mls/hr Mupirocin (Bactroban 2% Nasal) 0.5 gm AKIRA BID [facility] Last Admin: 07/05/17 17:21 Dose: 0.5 gm Oxycodone/Acetaminophen (Percocet 5/325 Mg Tab) 1 tab PO Q6H PRN PRN Reason: Pain, moderate (4-7) Stop: 07/08/17 21:30 Last Admin: 07/05/17 21:43 Dose: 1 tab Pantoprazole Sodium (Protonix Ec Tab) 40 mg PO DAILY [facility] Last Admin: 07/05/17 09:44 Dose: 40 mg Potassium Chloride (K-Dur 20 Meq Er Tab) 20 meq PO DAILY [facility] - Labs Labs: 07/05/17 07:01 07/05/17 06:59 PT 12.1 SECONDS (9.7-12.2) 06/21/17 00:12 INR 1.1 06/21/17 00:12 APTT 105 SECONDS (21-34) H* D 06/21/17 06:24 - Constitutional Appears: No Acute Distress - Head Exam Head Exam: ATRAUMATIC, NORMAL INSPECTION, NORMOCEPHALIC - Eye Exam Eye Exam: EOMI, Normal appearance, PERRL Pupil Exam: NORMAL ACCOMODATION, PERRL - ENT Exam ENT Exam: Mucous Membranes Moist, Normal Exam - Respiratory Exam Respiratory Exam: Clear to Ausculation Bilateral, NORMAL BREATHING PATTERN - Cardiovascular Exam Cardiovascular Exam: REGULAR RHYTHM, +S1, +S2. absent: Murmur - GI/Abdominal Exam GI & Abdominal Exam: Soft, Normal Bowel Sounds. absent: Tenderness Assessment and Plan (1) DVT prophylaxis Status: Acute (2) HTN (hypertension) Status: Acute (3) PHT (pulmonary hypertension) Status: Acute (4) CAD (coronary artery disease) Status: Chronic (5) Pulmonary HTN Status: Chronic (6) Rheumatoid arthritis Status: Chronic
[2017-07-06 07:41] LABS: BASO % 0.6 % (0.0-2.0); EOS # 0.1 K/uL (0.0-0.7); EOS % 2.9 % (0.0-4.0); HEMOGLOBIN 11.2 g/dL (11.0-16.0); LYMPH # 1.3 K/uL (1.0-4.3); LYMPH % 33.6 % (20.0-40.0); MEAN CELL VOLUME 91.4 fL (81.0-99.0); MEAN CORPUSCULAR HEMOGLOBIN 31.2 pg (27.0-31.0); MEAN CORPUSCULAR HGB CONC 34.1 g/dL (33.0-37.0); MEAN PLATELET VOLUME 9.4 fL (7.2-11.7); MONO # 0.6 K/uL (0.0-0.8); MONO % 15.9 % (0.0-10.0); NEUT # 1.8 K/uL (1.8-7.0); NRBC % 0.1 % (0.0-2.0); RBC 3.6 Mil/uL (3.80-5.20); RED CELL DISTRIBUTION WIDTH 15.5 % (11.5-14.5); WHITE BLOOD COUNT 3.8 K/uL (4.8-10.8)
[2017-07-06 09:37] LABS: ALB/GLOB RATIO 0.9 (1.0-2.1); ALBUMIN 3.1 g/dL (3.5-5.0); ALT/SGPT 38 U/L (9-52); AST/SGOT 40 U/L (14-36); BLOOD UREA NITROGEN 11 mg/dL (7-17); CALCIUM 8.7 mg/dl (8.6-10.4); GFR AFRICAN-AMERICAN > 60; GFR NON-AFRICAN AMERICAN > 60
[2017-07-06] MEDS ORDERED: Sodium Chloride 0.9% 1,000 ML IV ONE (10:00)
--- NOTE | 2017-07-06 10:01 | CP.PCM.PN ---
Subjective - Date & Time of Evaluation Date of Evaluation: 07/06/17 Time of Evaluation: 07:50 - Subjective Subjective: Patient seen and examined at bedside. Patient denies chest pain, dysnea, fever, or chills. Nurse reports no events overnight. Objective - Vital Signs/Intake and Output Vital Signs (last 24 hours): Temp Pulse Resp BP Pulse Ox 97.6 F 92 H 20 86/57 L 100 07/06/17 07:17 07/06/17 07:17 07/06/17 07:17 07/06/17 07:17 07/06/17 07:17 Intake and Output: 07/06/17 07/06/17 06:59 18:59 Intake Total 200 Output Total 150 Balance 50 - Medications Medications: Current Medications Apixaban (Eliquis) 5 mg PO BID [facility] Last Admin: 07/05/17 17:21 Dose: 5 mg Aspirin (Aspirin Chewable) 81 mg PO DAILY [facility] Last Admin: 07/05/17 09:44 Dose: 81 mg Calcium/Vitamin D (Oyster Shell Calcium/Vitamin D 500 Mg-200 Iu) 1 tab PO DAILY [facility] Last Admin: 07/05/17 09:45 Dose: 1 tab Clonazepam (Klonopin) 0.5 mg PO Q24H [facility] Last Admin: 07/05/17 21:23 Dose: 0.5 mg Digoxin (Digoxin) 0.125 mg PO 1800 [facility] Last Admin: 07/05/17 17:21 Dose: 0.125 mg Diltiazem HCl (Cardizem) 30 mg PO QID [facility] Last Admin: 07/05/17 21:22 Dose: 30 mg Docusate Sodium (Colace) 100 mg PO TID [facility] Last Admin: 07/05/17 17:20 Dose: 100 mg Home Med (Patient's Own Medication) 1 tab PO TID [facility] Last Admin: 07/05/17 17:20 Dose: Not Given Sodium Chloride (Sodium Chloride 0.9%) 1,000 mls @ 40 mls/hr IV .Q24H ONE Stop: 07/07/17 09:59 Mupirocin (Bactroban 2% Nasal) 0.5 gm AKIRA BID [facility] Last Admin: 07/05/17 17:21 Dose: 0.5 gm Oxycodone/Acetaminophen (Percocet 5/325 Mg Tab) 1 tab PO Q6H PRN PRN Reason: Pain, moderate (4-7) Stop: 07/08/17 21:30 Last Admin: 07/05/17 21:43 Dose: 1 tab Pantoprazole Sodium (Protonix Ec Tab) 40 mg PO DAILY [facility] Last Admin: 07/05/17 09:44 Dose: 40 mg Potassium Chloride (K-Dur 20 Meq Er Tab) 20 meq PO DAILY [facility] - Labs Labs: 07/06/17 07:12 07/06/17 07:12 PT 12.1 SECONDS (9.7-12.2) 06/21/17 00:12 INR 1.1 06/21/17 00:12 APTT 105 SECONDS (21-34) H* D 06/21/17 06:24 - Constitutional Appears: Well, Non-toxic, No Acute Distress - Head Exam Head Exam: ATRAUMATIC, NORMOCEPHALIC - Eye Exam Eye Exam: EOMI, Normal appearance - ENT Exam ENT Exam: Mucous Membranes Dry - Neck Exam Neck Exam: Normal Inspection - Respiratory Exam Respiratory Exam: Accessory Muscle Use Additional comments: over right lung - Cardiovascular Exam Cardiovascular Exam: RRR, +S1, +S2 - Extremities Exam Extremities Exam: Normal Capillary Refill, Normal Inspection - Neurological Exam Neurological Exam: Alert, Awake, Oriented x3 - Psychiatric Exam Psychiatric exam: Normal Affect, Normal Mood - Skin Skin Exam: Dry, Intact, Normal Color, Warm Assessment and Plan - Assessment and Plan (Free Text) Assessment: 57 year old female with advanced rheumatoid arthritis, immobility/bed-bound for 6 past months, and a prior history of PE who is status post EKOS thrombolysis with catheter directed tPA administration and systemic heparin. Currently, patient is on telemetry on high flow nasal oxygen. 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 - Eliquis 5 mg BID - High flow humidified oxygen via Nasal Cannula - Digoxin 0.125 mg PO daily - Sildenafil 20 mg TID - Clonazepam 0.5 q24h HS 2) Rheumatoid Arthritis - Percocet 5 mg q6h PRN 3) Constipation - Colace 100 mg TID 4) Leukocytosis likely secondary to UTI: resolved - 3 days course of Ceftriaxone 1 gm 24h completed 5) Dehydration: hypochloremic - 40 cc/hr of NS for a total of 500 ml 6) GI/DVT prophylaxis - Pantoprazole 40 mg PO daily - Sequential Compression Device -Continue with Ca supplements and Ensure Disposition: Per primary Case discussed with attending physician, Dr. Logan.
[2017-07-06] MEDS: Pantoprazole 40 mg EC Tab PO SCH (10:06)
[2017-07-06] MEDS: Potassium Chloride 20 mEq ER Tab PO SCH (10:06)
[2017-07-06] MEDS: SILDENAFIL 20 MG PO SCH ×2 (10:07→14:27)
[2017-07-06] MEDS: Calcium-Vit D 500 mg-200 Units Tab UD PO SCH (10:07)
[2017-07-06] MEDS: Mupirocin 2% Ointment (NASAL) NAS SCH ×2 (10:27→17:23)
[2017-07-06 14:21] LABS: ABG ALLEN TEST POS; ARTERIAL BLOOD GAS HCO3 31.9 mmol/L (21-28); ARTERIAL BLOOD GAS HEMOGLOBIN 10.5 g/dL (11.7-17.4); ARTERIAL BLOOD GAS O2 SAT 100.1 % (95-98); ARTERIAL BLOOD GAS PCO2 41 mm/Hg (35-45); ARTERIAL BLOOD GAS PH 7.51 (7.35-7.45); ARTERIAL BLOOD GAS PO2 103 mm/Hg (80-100)
[2017-07-06] MEDS: Digoxin 125 mcg (0.125 mg) Tab PO SCH (17:20)
[2017-07-06] MEDS: SILDENAFIL 20 MG TAB PO SCH (17:21)
[2017-07-06] MEDS: Oxycodone/Acetaminophen 5/325 mg Tab PO PRN (20:16)
--- NOTE | 2017-07-06 22:43 | CP.PCM.PN ---
Subjective - Date & Time of Evaluation Date of Evaluation: 07/06/17 Time of Evaluation: 17:35 - Subjective Subjective: Pt seen and examined at bedside, he is feeling better, he is for [facility] Objective - Vital Signs/Intake and Output Vital Signs (last 24 hours): Temp Pulse Resp BP Pulse Ox 97.9 F 96 H 18 103/72 100 07/06/17 17:11 07/06/17 17:11 07/06/17 17:11 07/06/17 17:11 07/06/17 07:17 Intake and Output: 07/06/17 07/07/17 18:59 06:59 Intake Total 460 Balance 460 - Medications Medications: Current Medications Apixaban (Eliquis) 5 mg PO BID [facility] Last Admin: 07/06/17 17:21 Dose: 5 mg Aspirin (Aspirin Chewable) 81 mg PO DAILY [facility] Last Admin: 07/06/17 10:06 Dose: 81 mg Calcium/Vitamin D (Oyster Shell Calcium/Vitamin D 500 Mg-200 Iu) 1 tab PO DAILY [facility] Last Admin: 07/06/17 10:07 Dose: 1 tab Clonazepam (Klonopin) 0.5 mg PO Q24H [facility] Last Admin: 07/06/17 20:20 Dose: 0.5 mg Digoxin (Digoxin) 0.125 mg PO 1800 [facility] Last Admin: 07/06/17 17:20 Dose: 0.125 mg Diltiazem HCl (Cardizem) 30 mg PO TID [facility] Last Admin: 07/06/17 17:20 Dose: 30 mg Docusate Sodium (Colace) 100 mg PO TID [facility] Last Admin: 07/06/17 17:20 Dose: 100 mg Home Med (Patient's Own Medication) 1 tab PO TID [facility] Last Admin: 07/06/17 17:21 Dose: 1 tab Sodium Chloride (Sodium Chloride 0.9%) 1,000 mls @ 40 mls/hr IV .Q24H ONE Stop: 07/07/17 09:59 Last Admin: 07/06/17 10:06 Dose: 40 mls/hr Mupirocin (Bactroban 2% Nasal) 0.5 gm AKIRA BID [facility] Last Admin: 07/06/17 17:23 Dose: 0.5 gm Oxycodone/Acetaminophen (Percocet 5/325 Mg Tab) 1 tab PO Q6H PRN PRN Reason: Pain, moderate (4-7) Stop: 07/08/17 21:30 Last Admin: 07/06/17 20:16 Dose: 1 tab Potassium Chloride (K-Dur 20 Meq Er Tab) 20 meq PO DAILY [facility] Last Admin: 07/06/17 10:06 Dose: 20 meq - Labs Labs: 07/06/17 07:12 07/06/17 07:12 PT 12.1 SECONDS (9.7-12.2) 06/21/17 00:12 INR 1.1 06/21/17 00:12 APTT 105 SECONDS (21-34) H* D 06/21/17 06:24 - Constitutional Appears: No Acute Distress - Head Exam Head Exam: ATRAUMATIC, NORMAL INSPECTION, NORMOCEPHALIC - Eye Exam Eye Exam: EOMI, Normal appearance, PERRL Pupil Exam: NORMAL ACCOMODATION, PERRL - Respiratory Exam Respiratory Exam: Clear to Ausculation Bilateral, NORMAL BREATHING PATTERN - Cardiovascular Exam Cardiovascular Exam: REGULAR RHYTHM, +S1, +S2. absent: Murmur Assessment and Plan (1) DVT prophylaxis Status: Acute (2) HTN (hypertension) Status: Acute (3) PHT (pulmonary hypertension) Status: Acute (4) CAD (coronary artery disease) Status: Chronic (5) Pulmonary HTN Status: Chronic (6) Rheumatoid arthritis Status: Chronic
[2017-07-07 07:21] LABS: BASO % 1.1 % (0.0-2.0); EOS # 0.1 K/uL (0.0-0.7); EOS % 4.3 % (0.0-4.0); HEMOGLOBIN 10.4 g/dL (11.0-16.0); LYMPH # 1.2 K/uL (1.0-4.3); LYMPH % 39.5 % (20.0-40.0); MEAN CORPUSCULAR HEMOGLOBIN 31.2 pg (27.0-31.0); MEAN PLATELET VOLUME 9.1 fL (7.2-11.7); MONO # 0.5 K/uL (0.0-0.8); MONO % 17.2 % (0.0-10.0); NEUT # 1.2 K/uL (1.8-7.0); NEUT % 37.9 % (50.0-75.0); NRBC % 0.1 % (0.0-2.0); RBC 3.33 Mil/uL (3.80-5.20); RED CELL DISTRIBUTION WIDTH 15.4 % (11.5-14.5); WHITE BLOOD COUNT 3.1 K/uL (4.8-10.8)
[2017-07-07 07:37] LABS: ALB/GLOB RATIO 0.8 (1.0-2.1); ALBUMIN 2.8 g/dL (3.5-5.0); ALT/SGPT 39 U/L (9-52); AST/SGOT 31 U/L (14-36); BLOOD UREA NITROGEN 6 mg/dL (7-17); CALCIUM 8.3 mg/dl (8.6-10.4); GFR AFRICAN-AMERICAN > 60; GFR NON-AFRICAN AMERICAN > 60
[2017-07-07] MEDS: Potassium Chloride 20 mEq ER Tab PO SCH (09:55)
[2017-07-07] MEDS: SILDENAFIL 20 MG TAB PO SCH ×3 (09:56→18:32)
[2017-07-07] MEDS: Calcium-Vit D 500 mg-200 Units Tab UD PO SCH (09:56)
[2017-07-07] MEDS: Mupirocin 2% Ointment (NASAL) NAS SCH ×2 (09:58→18:31)
[2017-07-07] MEDS: Digoxin 125 mcg (0.125 mg) Tab PO SCH (18:30)
[2017-07-07] MEDS: Oxycodone/Acetaminophen 5/325 mg Tab PO PRN (18:31)
--- NOTE | 2017-07-07 22:53 | CP.PCM.PN ---
Subjective - Date & Time of Evaluation Date of Evaluation: 07/07/17 Time of Evaluation: 18:00 - Subjective Subjective: Pt seen and examined today, we are tapering her oxygen down, less cough, less shortness of breath, pt needs to go for [facility] Objective - Vital Signs/Intake and Output Vital Signs (last 24 hours): Temp Pulse Resp BP Pulse Ox 97.7 F 95 H 18 97/64 L 95 07/07/17 16:00 07/07/17 16:00 07/07/17 16:00 07/07/17 18:30 07/07/17 16:00 Intake and Output: 07/07/17 07/08/17 18:59 06:59 Intake Total 300 300 Output Total 250 Balance 50 300 - Medications Medications: Current Medications Apixaban (Eliquis) 5 mg PO BID [facility] Last Admin: 07/07/17 18:30 Dose: 5 mg Aspirin (Aspirin Chewable) 81 mg PO DAILY [facility] Last Admin: 07/07/17 09:56 Dose: 81 mg Calcium/Vitamin D (Oyster Shell Calcium/Vitamin D 500 Mg-200 Iu) 1 tab PO DAILY [facility] Last Admin: 07/07/17 09:56 Dose: 1 tab Clonazepam (Klonopin) 0.5 mg PO Q24H [facility] Last Admin: 07/07/17 20:42 Dose: 0.5 mg Digoxin (Digoxin) 0.125 mg PO 1800 [facility] Last Admin: 07/07/17 18:30 Dose: 0.125 mg Diltiazem HCl (Cardizem) 30 mg PO TID [facility] Last Admin: 07/07/17 18:30 Dose: 30 mg Docusate Sodium (Colace) 100 mg PO TID [facility] Last Admin: 07/07/17 18:32 Dose: 100 mg Home Med (Patient's Own Medication) 1 tab PO TID [facility] Last Admin: 07/07/17 18:32 Dose: 1 tab Mupirocin (Bactroban 2% Nasal) 0.5 gm AKIRA BID [facility] Last Admin: 07/07/17 18:31 Dose: 0.5 gm Oxycodone/Acetaminophen (Percocet 5/325 Mg Tab) 1 tab PO Q6H PRN PRN Reason: Pain, moderate (4-7) Stop: 07/08/17 21:30 Last Admin: 07/07/17 18:31 Dose: 1 tab Potassium Chloride (K-Dur 20 Meq Er Tab) 20 meq PO DAILY [facility] Last Admin: 07/07/17 09:55 Dose: 20 meq - Labs Labs: 07/07/17 07:12 07/07/17 07:12 PT 12.1 SECONDS (9.7-12.2) 06/21/17 00:12 INR 1.1 06/21/17 00:12 APTT 105 SECONDS (21-34) H* D 06/21/17 06:24 - Constitutional Appears: No Acute Distress - Head Exam Head Exam: ATRAUMATIC, NORMAL INSPECTION, NORMOCEPHALIC - Eye Exam Eye Exam: EOMI, Normal appearance, PERRL Pupil Exam: NORMAL ACCOMODATION, PERRL - Respiratory Exam Respiratory Exam: Decreased Breath Sounds, Rhonchi - Cardiovascular Exam Cardiovascular Exam: REGULAR RHYTHM, +S1, +S2. absent: Murmur - GI/Abdominal Exam GI & Abdominal Exam: Soft, Normal Bowel Sounds. absent: Tenderness - Rectal Exam Rectal Exam: Deferred Assessment and Plan (1) DVT prophylaxis Status: Acute (2) HTN (hypertension) Status: Acute (3) PHT (pulmonary hypertension) Status: Acute (4) CAD (coronary artery disease) Status: Chronic (5) Pulmonary HTN Assessment & Plan: due to venoous thromboemboilc disceas nebulizer/taper oxygen down radha Status: Chronic (6) Rheumatoid arthritis Status: Chronic (7) Rheumatoid lung Status: Acute
[2017-07-08] MEDS: Potassium Chloride 20 mEq ER Tab PO SCH (10:35)
[2017-07-08] MEDS: Mupirocin 2% Ointment (NASAL) NAS SCH ×2 (10:35→17:40)
[2017-07-08] MEDS: Calcium-Vit D 500 mg-200 Units Tab UD PO SCH (10:35)
[2017-07-08] MEDS: SILDENAFIL 20 MG TAB PO SCH ×3 (10:36→17:40)
--- NOTE | 2017-07-08 17:30 | CP.PCM.PN ---
Subjective - Date & Time of Evaluation Date of Evaluation: 07/08/17 Time of Evaluation: 19:00 - Subjective Subjective: Pt seen and examined at beside, still on high demand oxygen. pt is not weanable Objective - Vital Signs/Intake and Output Vital Signs (last 24 hours): Temp Pulse Resp BP Pulse Ox 98.1 F 97 H 20 95/60 L 92 L 07/08/17 15:51 07/08/17 15:51 07/08/17 15:51 07/08/17 15:51 07/08/17 15:51 Intake and Output: 07/08/17 07/08/17 06:59 18:59 Intake Total 300 Balance 300 - Medications Medications: Current Medications Apixaban (Eliquis) 5 mg PO BID [facility] Last Admin: 07/08/17 10:35 Dose: 5 mg Aspirin (Aspirin Chewable) 81 mg PO DAILY [facility] Last Admin: 07/08/17 10:36 Dose: 81 mg Calcium/Vitamin D (Oyster Shell Calcium/Vitamin D 500 Mg-200 Iu) 1 tab PO DAILY [facility] Last Admin: 07/08/17 10:35 Dose: 1 tab Clonazepam (Klonopin) 0.5 mg PO Q24H [facility] Last Admin: 07/07/17 20:42 Dose: 0.5 mg Digoxin (Digoxin) 0.125 mg PO 1800 [facility] Last Admin: 07/07/17 18:30 Dose: 0.125 mg Diltiazem HCl (Cardizem) 30 mg PO TID [facility] Last Admin: 07/08/17 17:25 Dose: Not Given Docusate Sodium (Colace) 100 mg PO TID [facility] Last Admin: 07/08/17 14:39 Dose: 100 mg Home Med (Patient's Own Medication) 1 tab PO TID [facility] Last Admin: 07/08/17 14:39 Dose: 1 tab Mupirocin (Bactroban 2% Nasal) 0.5 gm AKIRA BID [facility] Last Admin: 07/08/17 10:35 Dose: 0.5 gm Oxycodone/Acetaminophen (Percocet 5/325 Mg Tab) 1 tab PO Q6H PRN PRN Reason: Pain, moderate (4-7) Stop: 07/08/17 21:30 Last Admin: 07/07/17 18:31 Dose: 1 tab Potassium Chloride (K-Dur 20 Meq Er Tab) 20 meq PO DAILY [facility] Last Admin: 07/08/17 10:35 Dose: 20 meq - Labs Labs: 07/07/17 07:12 07/07/17 07:12 PT 12.1 SECONDS (9.7-12.2) 06/21/17 00:12 INR 1.1 06/21/17 00:12 APTT 105 SECONDS (21-34) H* D 06/21/17 06:24 - Constitutional Appears: No Acute Distress - Head Exam Head Exam: ATRAUMATIC, NORMAL INSPECTION, NORMOCEPHALIC - Eye Exam Eye Exam: EOMI, Normal appearance, PERRL Pupil Exam: NORMAL ACCOMODATION, PERRL - Respiratory Exam Respiratory Exam: Decreased Breath Sounds, Rales, Rhonchi - Cardiovascular Exam Cardiovascular Exam: REGULAR RHYTHM, +S1, +S2. absent: Murmur - GI/Abdominal Exam GI & Abdominal Exam: Soft, Normal Bowel Sounds. absent: Tenderness Assessment and Plan (1) DVT prophylaxis Status: Acute (2) HTN (hypertension) Status: Acute (3) PHT (pulmonary hypertension) Status: Acute (4) CAD (coronary artery disease) Status: Chronic (5) Pulmonary HTN Status: Chronic (6) Rheumatoid arthritis Status: Chronic (7) Rheumatoid lung Status: Acute
[2017-07-08] MEDS: Digoxin 125 mcg (0.125 mg) Tab PO SCH (17:40)
[2017-07-08] MEDS: Oxycodone/Acetaminophen 5/325 mg Tab PO PRN (17:43)
[2017-07-09] MEDS ORDERED: Oxycodone/Acetaminophen 5/325 mg Tab PO ONE (02:07)
[2017-07-09 08:07] LABS: BASO % 0.5 % (0.0-2.0); EOS # 0.2 K/uL (0.0-0.7); EOS % 2.6 % (0.0-4.0); HEMOGLOBIN 11.4 g/dL (11.0-16.0); LYMPH # 1.7 K/uL (1.0-4.3); LYMPH % 28.9 % (20.0-40.0); MEAN CELL VOLUME 91.9 fL (81.0-99.0); MEAN CORPUSCULAR HEMOGLOBIN 31.5 pg (27.0-31.0); MEAN CORPUSCULAR HGB CONC 34.2 g/dL (33.0-37.0); MEAN PLATELET VOLUME 8.8 fL (7.2-11.7); MONO # 0.6 K/uL (0.0-0.8); MONO % 11.2 % (0.0-10.0); NEUT # 3.3 K/uL (1.8-7.0); NEUT % 56.8 % (50.0-75.0); NRBC % 0.1 % (0.0-2.0); RBC 3.64 Mil/uL (3.80-5.20); RED CELL DISTRIBUTION WIDTH 15.8 % (11.5-14.5); WHITE BLOOD COUNT 5.8 K/uL (4.8-10.8)
[2017-07-09 08:30] LABS: ALB/GLOB RATIO 0.8 (1.0-2.1); ALBUMIN 2.8 g/dL (3.5-5.0); ALT/SGPT 29 U/L (9-52); AST/SGOT 28 U/L (14-36); BLOOD UREA NITROGEN 11 mg/dL (7-17); GFR AFRICAN-AMERICAN > 60; GFR NON-AFRICAN AMERICAN > 60
[2017-07-09] MEDS: Potassium Chloride 20 mEq ER Tab PO SCH (10:07)
[2017-07-09] MEDS: SILDENAFIL 20 MG TAB PO SCH ×3 (10:07→17:43)
[2017-07-09] MEDS: Calcium-Vit D 500 mg-200 Units Tab UD PO SCH (10:07)
[2017-07-09] MEDS: Mupirocin 2% Ointment (NASAL) NAS SCH ×2 (11:34→17:44)
[2017-07-09] MEDS: Digoxin 125 mcg (0.125 mg) Tab PO SCH (17:43)
[2017-07-09] MEDS: Oxycodone/Acetaminophen 5/325 mg Tab PO PRN (19:20)
--- NOTE | 2017-07-09 21:34 | CP.PCM.PN ---
Subjective - Date & Time of Evaluation Date of Evaluation: 07/09/17 Time of Evaluation: 16:00 - Subjective Subjective: Patient seen and evaluated at bedside Objective - Vital Signs/Intake and Output Vital Signs (last 24 hours): Temp Pulse Resp BP Pulse Ox 98.9 F 100 H 20 101/66 91 L 07/09/17 16:11 07/09/17 16:11 07/09/17 16:11 07/09/17 16:11 07/09/17 16:11 Intake and Output: 07/09/17 07/10/17 18:59 06:59 Intake Total 480 Output Total 225 Balance 255 - Medications Medications: Current Medications Apixaban (Eliquis) 5 mg PO BID [facility] Last Admin: 07/09/17 17:44 Dose: 5 mg Aspirin (Aspirin Chewable) 81 mg PO DAILY [facility] Last Admin: 07/09/17 10:07 Dose: 81 mg Calcium/Vitamin D (Oyster Shell Calcium/Vitamin D 500 Mg-200 Iu) 1 tab PO DAILY [facility] Last Admin: 07/09/17 10:07 Dose: 1 tab Clonazepam (Klonopin) 0.5 mg PO Q24H [facility] Last Admin: 07/09/17 21:34 Dose: 0.5 mg Digoxin (Digoxin) 0.125 mg PO 1800 [facility] Last Admin: 07/09/17 17:43 Dose: 0.125 mg Diltiazem HCl (Cardizem) 30 mg PO TID [facility] Last Admin: 07/09/17 17:44 Dose: 30 mg Docusate Sodium (Colace) 100 mg PO TID [facility] Last Admin: 07/09/17 17:44 Dose: 100 mg Home Med (Patient's Own Medication) 1 tab PO TID [facility] Last Admin: 07/09/17 17:43 Dose: 1 tab Mupirocin (Bactroban 2% Nasal) 0.25 gm AKIRA BID [facility] Last Admin: 07/09/17 17:44 Dose: 0.25 gm Oxycodone/Acetaminophen (Percocet 5/325 Mg Tab) 1 tab PO Q6H PRN PRN Reason: Pain, moderate (4-7) Stop: 07/12/17 14:01 Last Admin: 07/09/17 19:20 Dose: 1 tab Potassium Chloride (K-Dur 20 Meq Er Tab) 20 meq PO DAILY [facility] Last Admin: 07/09/17 10:07 Dose: 20 meq - Labs Labs: 07/09/17 07:51 07/09/17 07:51 PT 12.1 SECONDS (9.7-12.2) 06/21/17 00:12 INR 1.1 06/21/17 00:12 APTT 105 SECONDS (21-34) H* D 06/21/17 06:24 Assessment and Plan (1) DVT prophylaxis Status: Acute (2) HTN (hypertension) Status: Acute (3) PHT (pulmonary hypertension) Status: Acute (4) CAD (coronary artery disease) Status: Chronic (5) Pulmonary HTN Status: Chronic (6) Rheumatoid arthritis Status: Chronic (7) Rheumatoid lung Status: Acute
--- NOTE | 2017-07-10 07:50 | CP.PCM.PN ---
Subjective - Date & Time of Evaluation Date of Evaluation: 07/10/17 Time of Evaluation: 07:47 - Subjective Subjective: Progress Note for Dr. Logan Patient seen and examined at bedside. Patient denies any chest pain, dyspnea, or palpitations. Nurse reports holding Diltiazem yesterday secondary to blood pressure being below 90 systolic. Objective - Vital Signs/Intake and Output Vital Signs (last 24 hours): Temp Pulse Resp BP Pulse Ox 97.5 F L 89 18 95/68 L 96 07/10/17 00:04 07/10/17 00:04 07/10/17 07:14 07/10/17 00:04 07/10/17 00:04 - Medications Medications: Current Medications Apixaban (Eliquis) 5 mg PO BID [facility] Last Admin: 07/09/17 17:44 Dose: 5 mg Aspirin (Aspirin Chewable) 81 mg PO DAILY [facility] Last Admin: 07/09/17 10:07 Dose: 81 mg Calcium/Vitamin D (Oyster Shell Calcium/Vitamin D 500 Mg-200 Iu) 1 tab PO DAILY [facility] Last Admin: 07/09/17 10:07 Dose: 1 tab Clonazepam (Klonopin) 0.5 mg PO Q24H [facility] Last Admin: 07/09/17 21:34 Dose: 0.5 mg Digoxin (Digoxin) 0.125 mg PO 1800 [facility] Last Admin: 07/09/17 17:43 Dose: 0.125 mg Diltiazem HCl (Cardizem) 30 mg PO TID [facility] Last Admin: 07/09/17 17:44 Dose: 30 mg Docusate Sodium (Colace) 100 mg PO TID [facility] Last Admin: 07/09/17 17:44 Dose: 100 mg Home Med (Patient's Own Medication) 1 tab PO TID [facility] Last Admin: 07/09/17 17:43 Dose: 1 tab Mupirocin (Bactroban 2% Nasal) 0.25 gm AKIRA BID [facility] Last Admin: 07/09/17 17:44 Dose: 0.25 gm Oxycodone/Acetaminophen (Percocet 5/325 Mg Tab) 1 tab PO Q6H PRN PRN Reason: Pain, moderate (4-7) Stop: 07/12/17 14:01 Last Admin: 07/09/17 19:20 Dose: 1 tab Potassium Chloride (K-Dur 20 Meq Er Tab) 20 meq PO DAILY [facility] Last Admin: 07/09/17 10:07 Dose: 20 meq - Labs Labs: 07/09/17 07:51 07/09/17 07:51 PT 12.1 SECONDS (9.7-12.2) 06/21/17 00:12 INR 1.1 06/21/17 00:12 APTT 105 SECONDS (21-34) H* D 06/21/17 06:24 - Constitutional Appears: Non-toxic, No Acute Distress - Head Exam Head Exam: ATRAUMATIC, NORMOCEPHALIC - Eye Exam Eye Exam: EOMI, Normal appearance - ENT Exam ENT Exam: Mucous Membranes Moist, Normal Oropharynx - Neck Exam Neck Exam: Normal Inspection - Respiratory Exam Respiratory Exam: Decreased Breath Sounds (right lung) Additional comments: RR 28 - Cardiovascular Exam Cardiovascular Exam: +S1, +S2. absent: Tachycardia - GI/Abdominal Exam GI & Abdominal Exam: Soft - Extremities Exam Extremities Exam: Normal Inspection. absent: Pedal Edema - Neurological Exam Neurological Exam: Alert, Awake, Oriented x3 - Psychiatric Exam Psychiatric exam: Normal Affect, Normal Mood - Skin Skin Exam: Dry, Intact, Normal Color, Warm Assessment and Plan - Assessment and Plan (Free Text) Assessment: 57 year old female with advanced rheumatoid arthritis, immobility/bed-bound for 6 past months, and a prior history of PE who is status post EKOS thrombolysis with catheter directed tPA administration and systemic heparin. Currently, patient is on telemetry on high flow nasal oxygen. 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 - Eliquis 5 mg BID - High flow humidified oxygen via Nasal Cannula - Digoxin 0.125 mg PO daily - Sildenafil 20 mg TID - Clonazepam 0.5 q24h HS 2) Rheumatoid Arthritis - Percocet 5 mg q6h PRN 3) Constipation - Colace 100 mg TID 4) GI/DVT prophylaxis - Pantoprazole 40 mg PO daily - Sequential Compression Device -Continue with Ca supplements and Ensure Case reviewed and discussed with attending physician, Dr. Logan.
[2017-07-10] MEDS: Oxycodone/Acetaminophen 5/325 mg Tab PO PRN (08:17)
[2017-07-10 08:45] LABS: BASO % 0.6 % (0.0-2.0); EOS # 0.2 K/uL (0.0-0.7); EOS % 2.8 % (0.0-4.0); HEMOGLOBIN 11.2 g/dL (11.0-16.0); LYMPH # 1.4 K/uL (1.0-4.3); LYMPH % 24.5 % (20.0-40.0); MEAN CELL VOLUME 92.6 fL (81.0-99.0); MEAN CORPUSCULAR HEMOGLOBIN 31.1 pg (27.0-31.0); MEAN CORPUSCULAR HGB CONC 33.5 g/dL (33.0-37.0); MEAN PLATELET VOLUME 8.4 fL (7.2-11.7); MONO # 0.5 K/uL (0.0-0.8); MONO % 9.4 % (0.0-10.0); NEUT # 3.6 K/uL (1.8-7.0); NEUT % 62.7 % (50.0-75.0); RBC 3.62 Mil/uL (3.80-5.20); RED CELL DISTRIBUTION WIDTH 15.5 % (11.5-14.5); WHITE BLOOD COUNT 5.8 K/uL (4.8-10.8)
[2017-07-10 09:01] LABS: ALB/GLOB RATIO 0.9 (1.0-2.1); ALBUMIN 2.9 g/dL (3.5-5.0); ALT/SGPT 37 U/L (9-52); AST/SGOT 33 U/L (14-36); BLOOD UREA NITROGEN 7 mg/dL (7-17); CALCIUM 8.4 mg/dl (8.6-10.4); GFR AFRICAN-AMERICAN > 60; GFR NON-AFRICAN AMERICAN > 60
[2017-07-10 09:12] LABS: B-TYPE NATRIURETIC PEPTIDE 3430 pg/mL (0-900)
[2017-07-10] MEDS: Potassium Chloride 20 mEq ER Tab PO SCH (10:05)
[2017-07-10] MEDS: Calcium-Vit D 500 mg-200 Units Tab UD PO SCH (10:05)
[2017-07-10] MEDS: Mupirocin 2% Ointment (NASAL) NAS SCH ×2 (10:06→17:23)
[2017-07-10] MEDS: SILDENAFIL 20 MG TAB PO SCH ×3 (10:10→17:24)
--- NOTE | 2017-07-10 15:38 | PCM.HF ---
Heart Failure Core Measure - Heart Failure Ejection Fraction: 40 % or Greater JAD Inhibitor Prescribed: No Contraindication/Reason for not providing: EF > 40 Beta-Tanner Prescribed: None Contraindication/Reason for not providing: EF > 40 Angiotensin II Receptor Tanner Prescribed: No Contraindication/Reason for not providing: EF > 40 AnticoagulationTherapy for Atrial Fibrillation/Atrialflutter: Yes Aldosterone Antagonist Prescribed: No Contraindication/Reason for not providing: EF > 40 Hydralazine Nitrate Prescribed: No Contraindication/Reason for not providing: ON DIG; EF > 40 Implantable Cardioverter Defibrillator Therapy: No Contraindication/Reason for not providing: NO H/O, EF > 40 Cardiac Resynchronization Therapy Prescribed: No Contraindication/Reason for not providing: NO H/O, EF > 40 - Follow up Will be [facility] to[facility] Follow Up Date (must be within 7 days from discharge): 07/11/17 Follow Up Time: 09:00
--- NOTE | 2017-07-10 15:39 | CP.PCM.PN ---
Subjective - Date & Time of Evaluation Date of Evaluation: 07/10/17 Time of Evaluation: 15:38 - Subjective Subjective: PT CLEARED FOR D/C TODAY TO [facility] AT [facility] [place], [place] PER DR. GRIFFITHS. MED REC FOR D/C ALREADY COMPLETED BY ANOTHER PROVIDER. DISCUSSED D/C WITH CM AND SW. SW TO ARRANGE TRANSPORTATION TO [facility] THIS AFTERNOON. NO FURTHER ORDERS. Objective - Vital Signs/Intake and Output Vital Signs (last 24 hours): Temp Pulse Resp BP Pulse Ox 98 F 94 H 18 87/59 L 98 07/10/17 07:15 07/10/17 14:04 07/10/17 07:15 07/10/17 14:04 07/10/17 07:15 - Medications Medications: Current Medications Apixaban (Eliquis) 5 mg PO BID [facility] Last Admin: 07/10/17 10:54 Dose: 5 mg Aspirin (Aspirin Chewable) 81 mg PO DAILY [facility] Last Admin: 07/10/17 10:05 Dose: 81 mg Calcium/Vitamin D (Oyster Shell Calcium/Vitamin D 500 Mg-200 Iu) 1 tab PO DAILY [facility] Last Admin: 07/10/17 10:05 Dose: 1 tab Clonazepam (Klonopin) 0.5 mg PO Q24H [facility] Last Admin: 07/09/17 21:34 Dose: 0.5 mg Digoxin (Digoxin) 0.125 mg PO 1800 [facility] Last Admin: 07/09/17 17:43 Dose: 0.125 mg Diltiazem HCl (Cardizem) 30 mg PO TID [facility] Last Admin: 07/10/17 14:02 Dose: Not Given Docusate Sodium (Colace) 100 mg PO TID [facility] Last Admin: 07/10/17 14:02 Dose: 100 mg Home Med (Patient's Own Medication) 1 tab PO TID [facility] Last Admin: 07/10/17 14:02 Dose: 1 tab Mupirocin (Bactroban 2% Nasal) 0.25 gm AKIRA BID [facility] Last Admin: 07/10/17 10:06 Dose: 0.25 gm Oxycodone/Acetaminophen (Percocet 5/325 Mg Tab) 1 tab PO Q6H PRN PRN Reason: Pain, moderate (4-7) Stop: 07/12/17 14:01 Last Admin: 07/10/17 08:17 Dose: 1 tab Potassium Chloride (K-Dur 20 Meq Er Tab) 20 meq PO DAILY [facility] Last Admin: 07/10/17 10:05 Dose: 20 meq - Labs Labs: 07/10/17 08:31 07/10/17 08:31 PT 12.1 SECONDS (9.7-12.2) 06/21/17 00:12 INR 1.1 06/21/17 00:12 APTT 105 SECONDS (21-34) H* D 06/21/17 06:24
[2017-07-10 15:42] VITALS: RESP 20
[2017-07-10 15:47] VITALS: PULSE 85; TEMP 97.5; O2SAT 95
[2017-07-10] MEDS: Digoxin 125 mcg (0.125 mg) Tab PO SCH (17:23)
[2017-07-10 17:24] VITALS: PULSE 85
[2017-07-10 17:25] VITALS: BP 101/66
--- NOTE | 2017-07-10 23:18 | CP.PCM.DIS ---
Provider - Provider Date of Admission: 06/20/17 19:06 Attending physician: Roni Houston MD Time Spent in preparation of Discharge (in minutes): 34 Diagnosis - Discharge Diagnosis (1) DVT prophylaxis Status: Acute (2) HTN (hypertension) Status: Acute (3) PHT (pulmonary hypertension) Status: Acute (4) CAD (coronary artery disease) Status: Chronic (5) Pulmonary HTN Status: Chronic Priority: High (6) Rheumatoid arthritis Status: Chronic (7) Rheumatoid lung Status: Acute Hospital Course - Lab Results Lab Results: Micro Results 07/03/17 13:45 Blood-Venous Blood Culture - Final NO GROWTH AFTER 5 DAYS 07/03/17 13:45 Blood-Venous Gram Stain - Final TEST NOT PERFORMED 07/03/17 13:30 Blood-Venous Blood Culture - Final NO GROWTH AFTER 5 DAYS 07/03/17 13:30 Blood-Venous Gram Stain - Final TEST NOT PERFORMED 07/03/17 Unknown Sputum Gram Stain - Final 07/03/17 Unknown Sputum Sputum Culture - Final Klebsiella Pneumoniae Ssp Pneu 06/26/17 18:58 Nose MRSA Culture - Final MRSA DETECTED 06/20/17 22:21 Nose MRSA Culture (Admit) - Final MRSA DETECTED Most Recent Lab Values WBC 5.8 K/uL (4.8-10.8) 07/10/17 08:31 RBC 3.62 Mil/uL (3.80-5.20) L 07/10/17 08:31 Hgb 11.2 g/dL (11.0-16.0) 07/10/17 08:31 Hct 33.5 % (34.0-47.0) L 07/10/17 08:31 MCV 92.6 fL (81.0-99.0) 07/10/17 08:31 MCH 31.1 pg (27.0-31.0) H 07/10/17 08:31 MCHC 33.5 g/dL (33.0-37.0) 07/10/17 08:31 RDW 15.5 % (11.5-14.5) H 07/10/17 08:31 Plt Count 320 K/uL (130-400) 07/10/17 08:31 MPV 8.4 fL (7.2-11.7) 07/10/17 08:31 Neut % (Auto) 62.7 % (50.0-75.0) 07/10/17 08:31 Lymph % (Auto) 24.5 % (20.0-40.0) 07/10/17 08:31 [place] % (Auto) 9.4 % (0.0-10.0) 07/10/17 08:31 Eos % (Auto) 2.8 % (0.0-4.0) 07/10/17 08:31 Baso % (Auto) 0.6 % (0.0-2.0) 07/10/17 08:31 Neut # (Auto) 3.6 K/uL (1.8-7.0) 07/10/17 08:31 Lymph # (Auto) 1.4 K/uL (1.0-4.3) 07/10/17 08:31 [place] # (Auto) 0.5 K/uL (0.0-0.8) 07/10/17 08:31 Eos # (Auto) 0.2 K/uL (0.0-0.7) 07/10/17 08:31 Baso # (Auto) 0.0 K/uL (0.0-0.2) 07/10/17 08:31 Neutrophils % (Manual) 84 % (50-75) H 07/03/17 09:28 Lymphocytes % (Manual) 9 % (20-40) L 07/03/17 09:28 Monocytes % (Manual) 7 % (0-10) 07/03/17 09:28 Platelet Estimate Normal (NORMAL) 07/03/17 09:28 Anisocytosis (manual) Slight 07/03/17 09:28 ESR 45 mm/hr (0-20) H 06/22/17 11:53 PT 12.1 SECONDS (9.7-12.2) 06/21/17 00:12 INR 1.1 06/21/17 00:12 APTT 105 SECONDS (21-34) H* D 06/21/17 06:24 Puncture Site Lra 07/06/17 14:18 pCO2 41 mm/Hg (35-45) 07/06/17 14:18 pO2 103 mm/Hg (80-100) H 07/06/17 14:18 HCO3 31.9 mmol/L (21-28) H 07/06/17 14:18 ABG pH 7.51 (7.35-7.45) H 07/06/17 14:18 ABG Total CO2 34.0 mmol/L (22-28) H 07/06/17 14:18 ABG O2 Saturation 100.1 % (95-98) H 07/06/17 14:18 ABG Base Excess 8.9 mmol/L (-2.0-3.0) H 07/06/17 14:18 ABG Hemoglobin 10.5 g/dL (11.7-17.4) L 07/06/17 14:18 ABG Carboxyhemoglobin 1.9 % (0.5-1.5) H 07/06/17 14:18 POC ABG HHb (Measured) -0.1 % (0.0-5.0) L 07/06/17 14: ABG Methemoglobin 1.2 % (0.0-3.0) 07/06/17 14:18 Cedric Test Pos 07/06/17 14:18 A-a O2 Difference 559.0 mm/Hg 07/06/17 14:18 Respiratory Index 5.4 07/06/17 14:18 Hgb O2 Saturation 96.9 % (95.0-98.0) 07/06/17 14:18 Liter Flow 5.0 06/22/17 05:06 Vent Mode High flow 07/06/17 14:18 FiO2 100.0 % 07/06/17 14:18 Inspiratory BiPAP 14 06/22/17 05:06 Expiratory BiPAP 6 06/22/17 05:06 Crit Value Called To Alejandro haynes 06/21/17 19:30 Crit Value Called By Ana 06/21/17 19:30 Crit Value Read Back Y 06/21/17 19:30 Blood Gas Notified Time 193206/21/17 19:30 Sodium 136 mmol/L (132-148) 07/10/17 08:31 Potassium 4.6 mmol/L (3.6-5.2) 07/10/17 08:31 Chloride 103 mmol/L (98-107) 07/10/17 08:31 Carbon Dioxide 26 mmol/L (22-30) 07/10/17 08:31 Anion Gap 13 (10-20) 07/10/17 08:31 BUN 7 mg/dL (7-17) 07/10/17 08:31 Creatinine 0.2 mg/dL (0.7-1.2) L 07/10/17 08:31 Est GFR ( Amer) > 60 07/10/17 08:31 Est GFR (Non-Af Amer) > 60 07/10/17 08:31 POC Glucose (mg/dL) 136 mg/dL (65-110) H 06/26/17 16:29 Random Glucose 81 mg/dL (65-105) 07/10/17 08:31 Calcium 8.4 mg/dl (8.6-10.4) L 07/10/17 08:31 Phosphorus 3.2 mg/dL (2.5-4.5) 06/27/17 11:05 Magnesium 1.9 mg/dL (1.6-2.3) 06/27/17 11:05 Total Bilirubin 0.3 mg/dL (0.2-1.3) 07/10/17 08:31 AST 33 U/L (14-36) 07/10/17 08:31 ALT 37 U/L (9-52) 07/10/17 08:31 Alkaline Phosphatase 113 U/L (38-126) 07/10/17 08:31 Total Creatine Kinase 30 U/L (30-135) 06/21/17 06:23 CK-MB (Mass) 2.93 ng/mL (0.0-3.38) 06/21/17 06:23 Troponin I 0.5630 ng/mL (0.00-0.120) H* 06/21/17 06:23 C-React Prot High Sens > 15.00 mg/L (1.00-3.00) H 06/22/17 11:58 NT-Pro-B Natriuret Pep 3430 pg/mL (0-900) H 07/10/17 08:31 Total Protein 6.3 g/dL (6.3-8.3) 07/10/17 08:31 Albumin 2.9 g/dL (3.5-5.0) L 07/10/17 08:31 Globulin 3.4 gm/dL (2.2-3.9) 07/10/17 08:31 Albumin/Globulin Ratio 0.9 (1.0-2.1) L 07/10/17 08:31 Triglycerides 101 mg/dL (0-149) 06/21/17 06:23 Cholesterol 153 mg/dL (0-199) 06/21/17 06:23 LDL Cholesterol Direct 103 mg/dL (0-129) 06/21/17 06:23 HDL Cholesterol 29 mg/dL (30-70) L 06/21/17 06:23 Procalcitonin 0.24 NG/ML (0.19-0.49) 07/03/17 14:07 Urine Color [place] (YELLOW) 07/03/17 14:07 Urine Clarity Hazy (Clear) 07/03/17 14:07 Urine pH 7.0 (5.0-8.0) 07/03/17 14:07 Ur Specific [place] 1.016 (1.003-1.030) 07/03/17 14:07 Urine Protein 1+ mg/dL (NEGATIVE) H 07/03/17 14:07 Urine Glucose (UA) Normal mg/dL (Normal) 07/03/17 14:07 Urine Ketones Negative mg/dL (NEGATIVE) 07/03/17 14:07 Urine Blood Negative (NEGATIVE) 07/03/17 14:07 Urine Nitrate Positive (NEGATIVE) H 07/03/17 14:07 Urine Bilirubin Negative (NEGATIVE) 07/03/17 14:07 Urine Urobilinogen 2.0 mg/dL (0.2-1.0) H 07/03/17 14:07 Ur Leukocyte Esterase Neg Jeremy/uL (Negative) 07/03/17 14:07 Urine WBC (Auto) 2 /hpf (0-5) 07/03/17 14:07 Urine RBC (Auto) 8 /hpf (0-3) H 07/03/17 14:07 Ur Squamous Epith Cells < 1 /hpf (0-5) 07/03/17 14:07 Amorphous Sediment Rare /ul (<OCC) H 07/03/17 14:07 Urine Bacteria Many (<OCC) H 07/03/17 14:07 Digoxin 0.5 ng/mL (0.8-2.0) L 07/03/17 14:07 - Hospital Course Hospital Course: PT CLEARED FOR D/C TODAY TO [facility] REC FOR D/C ALREADY COMPLETED BY ANOTHER PROVIDER. DISCUSSED D/C WITH CM AND SW. SW TO ARRANGE TRANSPORTATION TO [facility] THIS AFTERNOON. NO FURTHER ORDERS. Discharge Exam - Head Exam Head Exam: ATRAUMATIC, NORMOCEPHALIC - Eye Exam Eye Exam: EOMI, Normal appearance, PERRL Pupil Exam: NORMAL ACCOMODATION, PERRL - ENT Exam ENT Exam: Mucous Membranes Moist - Respiratory Exam Respiratory Exam: Clear to PA & Lateral, NORMAL BREATHING PATTERN - Cardiovascular Exam Cardiovascular Exam: Irregular Rhythm, +S1, +S2 - GI/Abdominal Exam GI & Abdominal Exam: Normal Bowel Sounds Discharge Plan - Discharge Medications Prescriptions: Digoxin 0.125 mg PO DAILY #30 tab Apixaban [Eliquis] 5 mg PO BID #60 tab Furosemide [Lasix] 20 mg PO DAILY #30 tab - Follow Up Plan Condition: GOOD Disposition: HOME/ ROUTINE Instructions: Pulmonary Embolism (Blood Clot in the Lungs), Heart Failure, Adult, Pulmonary Hypertension in Adults, Rheumatoid Arthritis (DC), Apixaban, Digoxin, Furosemide Additional Instructions: -CONTACT DR. HOUSTON'S OFFICE FOR ANY QUESTIONS REGARDING RECENT HOSPITALIZATION. -CONTINUE MEDICATIONS PER THE MED REC FORM. CHANGES CAN BE MADE BY ATTENDING PROVIDER. -PHYSICAL THERAPY TOLERATED. -WOUND CARE TEAM TO EVALUATE UPON ADMISSION. Referrals: Steven Logan MD [Staff Provider] - Roni Houston MD [Staff Provider] -
== END 2017-07-10 22:05 | DRG 541 ==
LOC: C.9S 19:06 → C.9I 19:06 → C.5S 06-26 18:50
PROVIDERS: ADMIT Internal Medicine; ATTEND Internal Medicine
PROC: 3E08317 Introduction of Other Thrombolytic into Heart, Percutaneous Approach (ICD-10-PCS; principal; 2017-06-20)
PROC: 4A023N6 Measurement of Cardiac Sampling and Pressure, Right Heart, Percutaneous Approach (ICD-10-PCS; 2017-06-20)
PROC: B214YZZ Fluoroscopy of Right Heart using Other Contrast (ICD-10-PCS; 2017-06-20)
PROC: B31TYZZ Fluoroscopy of Left Pulmonary Artery using Other Contrast (ICD-10-PCS; 2017-06-20)
PROC: B31SYZZ Fluoroscopy of Right Pulmonary Artery using Other Contrast (ICD-10-PCS; 2017-06-20)
PROC: 5A09357 Assistance with Respiratory Ventilation, Less than 24 Consecutive Hours, Continuous Positive Airway Pressure (ICD-10-PCS; 2017-06-21)
DX: I26.09 Other pulmonary embolism with acute cor pulmonale (principal); J96.91 Respiratory failure, unspecified with hypoxia; M32.9 Systemic lupus erythematosus, unspecified; I27.24 Chronic thromboembolic pulmonary hypertension; E87.2 Acidosis; E87.1 Hypo-osmolality and hyponatremia; I50.9 Heart failure, unspecified; E86.0 Dehydration; M06.9 Rheumatoid arthritis, unspecified; Z74.01 Bed confinement status; F41.9 Anxiety disorder, unspecified; F32.9 Major depressive disorder, single episode, unspecified; Z96.659 Presence of unspecified artificial knee joint; Z96.643 Presence of artificial hip joint, bilateral; R60.0 Localized edema; I25.10 Atherosclerotic heart disease of native coronary artery without angina pectoris; D64.9 Anemia, unspecified